=== PATIENT | male | born 1935 | race Caucasian/White ===

== ENCOUNTER 2019-07-12 20:40 | Inpatient (IN) | payer MEDICARE, MEDICAID ==
[~2019-07-12] VITALS: Ht 177.8 cm; Wt 64.0 kg
[~2019-07-12 20:40] MED LIST: ABILIFY10 MG PO; ACETAMINOP650 MG/20. PO; ATIVAN0.5 MG ORAL; CLONIDINE0.1 MG PO; COGENTIN1 MG PO; DEPAKOTE250 MG PO; DSS100 MG PO; DULCOLAX10 MG RC; FERROUS SULFAT325 MG PO; FUROSEMIDE40 MG IM; HALDOL INJECT5 MG/ML IM; LAMICTAL25 MG PO; LYRICA50 MG ORAL; MAALOX SUSPENS355 ML ORAL; MAALOX SUSPENS355 ML PO; MOM30 ML PO; MULTIVITAMINS1 EA11 PO; POTASSIUM CHLO20 ME1 ORAL; RAZADYNE4 MG PO; RESTORIL7.5 MG ORAL; RISPERDAL1 MG PO; RISPERDAL2 MG PO; ROCEPHIN1 GM IM; VITAMIN C500 M1 PO; ZINC SULFATE220 M1 ORAL
--- NOTE | 2019-07-12 20:40 | NUR ---
ED Nurse Note: PT CICI NOBLES FROM [facility] C/O FAILURE TO THRIVE [id number]. PT HAS BEEN EATING BUT WAS LOSING WEIGHTS OF 10 LBS. EMS REPORTS INCREASED COMBATIVENESS. PT IS AAOX2, VSS, NAD. ERMD AT BEDSIDE. WILL CONTINUE TO MONITOR PATIENT.
--- NOTE | 2019-07-12 20:45 | Emergency Room Report ---
History of Present Illness General Chief Complaint: General Complaint Source: Patient, EMS Present Illness HPI The patient is sent by his private physician. Apparently he has had deterioration over the last month. There is been 10 pound weight loss. He has been refusing to eat and also refusing to take medication. The patient denies any pain. He also denies being thirsty. He will not answer questions about being depressed or short of breath. He was last admitted here in 2012. Discharge diagnoses: 1. Bilateral extremity cellulitis. 2. History of congestive heart failure. 3. Diastolic congestive heart failure. 4. Acute delirium. 5. Schizophrenia. 6. Hypertension. 7. Possible dental abscess. Allergies: Coded Allergies: PORK/PORCINE CONTAINING PRODUCTS (Verified Allergy, Mild, 08/03/11) Patient History Limited by: medical condition Past Medical History: see triage record, old chart reviewed Social History Narrative Frederick Roque Reviewed Nursing Documentation: PMH: Agreed; PSxH: Agreed Nursing Documentation-PMH Hx Hypertension: Yes Hx COPD: Yes Hx Diabetes: Yes Hx Cancer: No Hx Neurological Problems: Yes Hx Cerebrovascular Accident: Yes Hx Dementia: Yes Hx Seizures: Yes Hx Concentration Difficulty: Yes Hx Neurologic Surgery: No Hx Brain Shunt: No Review of Systems All Other Systems: limited Physical Exam Vital Signs Date Time Temp Pulse Resp B/P (MAP) Pulse Ox O2 Delivery O2 Flow Rate FiO2 07/12/19 20:33 98.2 19 102/64 (77) Sp02 EP Interpretation: reviewed, normal General Appearance: thin, Chronically Ill Head: normocephalic Eyes: bilateral eye normal inspection, bilateral eye PERRL ENT: moist mucus membranes Neck: full range of motion, supple Respiratory: chest non-tender, lungs clear, normal breath sounds Cardiovascular #1: regular rate, rhythm, no edema Cardiovascular #2: 2+ radial (L) Gastrointestinal: normal inspection, normal bowel sounds, non tender, no mass, non-distended Genitourinary: no CVA tenderness Musculoskeletal: back normal, normal range of motion, no calf tenderness Neurologic: other - eyes closed and slow to respond Psychiatric: depressed affect Skin: no rash, warm/dry Medical Decision Making Diagnostic Impression: Primary Impression: Failure to thrive Qualified Codes: R62.7 - Adult failure to thrive Additional Impression: Dehydration ER Course Patient presents with 1 month of deterioration. Differential includes occult infection, electrolyte imbalance, acute myocardial infarction, depression, dehydration amongst others. Evaluation with EKG, chest x-ray and labs. Treatment with IV hydration. EKG no injury. CXR no infiltrate. Labs with elevated BUN and slightly high K. Minimal improvement with hydration. Admit for further evaluation and treatment. Laboratory Tests Test 07/12/19 21:00 07/12/19 21:05 White Blood Count 7.2 K/UL (4.8-10.8) Red Blood Count 4.51 M/UL (4.70-6.10) L Hemoglobin 13.6 G/DL (14.2-18.0) L Hematocrit 43.3 % (42.0-52.0) Mean Corpuscular Volume 96 FL (80-99) Mean Corpuscular Hemoglobin 30.2 PG (27.0-31.0) Mean Corpuscular Hemoglobin Concent 31.4 G/DL (32.0-36.0) L Red Cell Distribution Width 14.4 % (11.6-14.8) Platelet Count 194 K/UL (150-450) Mean Platelet Volume 6.4 FL (6.5-10.1) L Neutrophils (%) (Auto) 61.0 % (45.0-75.0) Lymphocytes (%) (Auto) 26.5 % (20.0-45.0) Monocytes (%) (Auto) 7.3 % (1.0-10.0) Eosinophils (%) (Auto) 3.7 % (0.0-3.0) H Basophils (%) (Auto) 1.4 % (0.0-2.0) Erythrocyte Sedimentation Rate 18 MM/HR (0-20) Prothrombin Time 10.7 SEC (9.30-11.50) Prothrombin Time INR 1.0 (0.9-1.1) Activated Partial Thromboplast Time 20 SEC (23-33) L Sodium Level 141 MMOL/L (136-145) Potassium Level 5.4 MMOL/L (3.5-5.1) H Chloride Level 107 MMOL/L (98-107) Carbon Dioxide Level 28 MMOL/L (21-32) Anion Gap 6 mmol/L (5-15) Blood Urea Nitrogen 23 mg/dL (7-18) H Creatinine 0.9 MG/DL (0.55-1.30) Estimate Glomerular Filtration Rate mL/min (>60) Glucose Level 106 MG/DL (74-106) Lactic Acid Level 1.00 mmol/L (0.4-2.0) Uric Acid 4.3 MG/DL (2.6-7.2) Calcium Level 8.9 MG/DL (8.5-10.1) Magnesium Level 1.8 MG/DL (1.8-2.4) Total Bilirubin 0.4 MG/DL (0.2-1.0) Aspartate Amino Transferase (AST) 29 U/L (15-37) Alanine Aminotransferase (ALT) 17 U/L (12-78) Alkaline Phosphatase 50 U/L (46-116) Ammonia 11 umol/L (11-32) Total Creatine Kinase 222 U/L (26-308) Troponin I 0.006 ng/mL (0.000-0.056) Total Protein 7.2 G/DL (6.4-8.2) Albumin 3.0 G/DL (3.4-5.0) L Globulin 4.2 g/dL Albumin/Globulin Ratio 0.7 (1.0-2.7) L Lipase 126 U/L (73-393) Thyroid Stimulating Hormone (TSH) 1.776 uiU/mL (0.358-3.740) Urine Color Pale yellow Urine Appearance Clear Urine pH 7 (4.5-8.0) Urine Specific [place] 1.015 (1.005-1.035) Urine Protein Negative (NEGATIVE) Urine Glucose (UA) Negative (NEGATIVE) Urine Ketones Negative (NEGATIVE) Urine Blood Negative (NEGATIVE) Urine Nitrite Negative (NEGATIVE) Urine Bilirubin Negative (NEGATIVE) Urine Urobilinogen Normal MG/DL (0.0-1.0) Urine Leukocyte Esterase Negative (NEGATIVE) Urine Opiates Screen Negative (NEGATIVE) Urine Barbiturates Screen Negative (NEGATIVE) Phencyclidine (PCP) Screen Negative (NEGATIVE) Urine Amphetamines Screen Negative (NEGATIVE) Urine Benzodiazepines Screen Negative (NEGATIVE) Urine Cocaine Screen Negative (NEGATIVE) Urine Marijuana (THC) Screen Negative (NEGATIVE) EKG Diagnostic Results Rate: normal Rhythm: NSR ST Segments: no acute changes - LVH and LASH Rhythm Strip Diag. Results EP Interpretation: yes Rhythm: NSR, no PVC's, no ectopy Chest X-Ray Diagnostic Results Chest X-Ray Diagnostic Results : Chest X-Ray Ordered: Yes # of Views/Limited/Complete: 1 View Indication: Other EP Interpretation: Yes Interpretation: no consolidation, no effusion, no pneumothorax, other - Cardiomegaly Impression: Other Electronically Signed by: Electronically signed by Shaw Anglin MD Last Vital Signs Date Time Temp Pulse Resp B/P (MAP) Pulse Ox O2 Delivery O2 Flow Rate FiO2 07/13/19 09:19 Room Air 07/13/19 09:00 119/69 07/13/19 08:25 97.4 70 20 99 Status: improved Disposition: ADMITTED INPATIENT Condition: Serious Shaw Anglin MD Jul 12, 2019 20:45
--- NOTE | 2019-07-12 21:00 | NUR ---
ED Nurse Note: IV ACCESS ESTABLISHED. BLOOD COLLECTED;S ENT DOWN TO LAB.
--- NOTE | 2019-07-12 21:10 | NUR ---
ED Nurse Note: URINE COLLECTED AND SENT TO LAB.
[2019-07-12 21:17] VITALS: BP 100/54
[2019-07-12] MEDS ORDERED: ACETAMINOPHEN120 MG RECTAL (21:21)
[2019-07-12] MEDS ORDERED: ACETAMINOPHEN325 M1 ORAL (21:21)
[2019-07-12] MEDS ORDERED: MYLANTA MAXIMU355 ML PO (21:21)
[2019-07-12 21:28] LABS: APPEARANCE,URINE CLEAR; BILIRUBIN, URINE NEGATIVE (NEGATIVE); COLOR,URINE PALE YELLOW; GLUCOSE, URINE (UA) NEGATIVE (NEGATIVE); KETONES,URINE NEGATIVE (NEGATIVE); LEUKOCYTE ESTERASE ,URINE NEGATIVE (NEGATIVE); NITRITE,URINE NEGATIVE (NEGATIVE); PH,URINE 7 (4.5-8.0); PROTEIN,URINE NEGATIVE (NEGATIVE); UROBILINOGEN,URINE NORMAL MG/DL (0.0-1.0)
[2019-07-12 21:34] LABS: BASOPHILS % (AUTO) 1.4 % (0.0-2.0); EOSINOPHILS % (AUTO) 3.7 % (0.0-3.0); HEMATOCRIT 43.3 % (42.0-52.0); HEMOGLOBIN 13.6 G/DL (14.2-18.0); LYMPHOCYTES % (AUTO) 26.5 % (20.0-45.0); MEAN CORPUSCULAR VOLUME 96 FL (80-99); MONOCYTES % (AUTO) 7.3 % (1.0-10.0); PLATELET COUNT 194 K/UL (150-450); RED BLOOD COUNT 4.51 M/UL (4.70-6.10); RED CELL DISTRIBUTION WIDTH 14.4 % (11.6-14.8); WHITE BLOOD COUNT 7.2 K/UL (4.8-10.8)
[2019-07-12 21:45] LABS: ANION GAP 6 mmol/L (5-15); BLOOD UREA NITROGEN 23 mg/dL (7-18); CALCIUM 8.9 MG/DL (8.5-10.1); CARBON DIOXIDE 28 MMOL/L (21-32); CHLORIDE 107 MMOL/L (98-107); CREATININE 0.9 MG/DL (0.55-1.30); POTASSIUM 5.4 MMOL/L (3.5-5.1); SODIUM 141 MMOL/L (136-145)
[2019-07-12 21:57] LABS: ALANINE AMINOTRANSFERASE 17 U/L (12-78); ALBUMIN/GLOBULIN RATIO 0.7 (1.0-2.7); ALKALINE PHOSPHATASE 50 U/L (46-116); ASPARTATE AMINO TRANSFERASE 29 U/L (15-37); BILIRUBIN,TOTAL 0.4 MG/DL (0.2-1.0); CREATINE KINASE 222 U/L (26-308)
[2019-07-12] MEDS ORDERED: Haloperidol 5mg/ml Inj IM PRN (22:30)
[2019-07-12] MEDS ORDERED: Potassium Chloride 10 MEQ in D5 1/2NS 1,000 ML IV SCH (22:30)
--- NOTE | 2019-07-12 22:55 | NUR ---
TRANSFER TO FLOOR: Patient transferred to [facility] via gurney accompanied by 1 tech in stable condition as ordered, per dr. Crandall. Report given to Asab RN. Belongings sent with patient.
--- NOTE | 2019-07-12 23:00 | NUR ---
NURSE NOTES: Pt is admitted from ER with Dx of Failure to thrive under Dr. Crandall. Report received from Rey Ulrich RN. Vitas stable on room air. No acute distress noted. Pt has delayed and garbled speech. Pt is confused. Pt able take apple sauce, juice and water by mouth. Physical assessment performed, skin intact. Pt is bedbound unable to ambulate with steady gait. Pt's potassium level is 5.4, Dr. Crandall is called, awaiting call back. Pt oriented to the room. Pt has no belongings except a gil sweater. Fall and seizure precaution in place. Bed alarm on. Bed locked low in position, side rails up and call light within reach. Pt will be monitored.
[2019-07-13] VITALS: BP 122/55
--- NOTE | 2019-07-13 03:54 | NUR ---
NURSE NOTES: Pt is in bed, asleep. NO acute distress noted.
[2019-07-13 04:00] VITALS: BP 118/81
[2019-07-13 05:59] LABS: ANION GAP 4 mmol/L (5-15); BLOOD UREA NITROGEN 16 mg/dL (7-18); CARBON DIOXIDE 30 MMOL/L (21-32); CHLORIDE 109 MMOL/L (98-107); CREATININE 0.9 MG/DL (0.55-1.30); POTASSIUM 4.8 MMOL/L (3.5-5.1); SODIUM 143 MMOL/L (136-145)
[2019-07-13 06:04] LABS: ALANINE AMINOTRANSFERASE 16 U/L (12-78); ALBUMIN 3.2 G/DL (3.4-5.0); ALBUMIN/GLOBULIN RATIO 0.8 (1.0-2.7); ALKALINE PHOSPHATASE 51 U/L (46-116); ASPARTATE AMINO TRANSFERASE 17 U/L (15-37); BILIRUBIN,TOTAL 0.7 MG/DL (0.2-1.0)
[2019-07-13] MEDS: D5 1/2NS 1,000 ML IV SCH ×2 (06:38→20:14)
--- NOTE | 2019-07-13 07:15 | NUR ---
HAND-OFF: Report given to Kathy Myers RN. Informed incoming nurse that pt is High fall risk.
--- NOTE | 2019-07-13 07:20 | NUR ---
- nurse notes received patient in bed sleeping no sign of distress, on going IVF patent and infusing well, on fall precaution, both siderails up for safety, bed in low position, Call light w/n easy reach malathi. rn
[2019-07-13 08:25] VITALS: BP 119/69
[2019-07-13] MEDS: Galantamine 4mg tab ORAL SCH ×2 (08:30→17:44)
[2019-07-13] MEDS: Heparin 5000 units/ml inj SUBQ SCH ×3 (08:32→20:10)
--- NOTE | 2019-07-13 12:00 | NUR ---
nurse notes joann , heparin and clonidine refused by patient, refused v/s at this time too, will continue to monitor patient condition robert servin
--- NOTE | 2019-07-13 12:17 | NUR ---
CASE MANAGEMENT:INITIAL REVIEW 84 YR OLD MALE BIBA FROM [facility] CC;GENERAL COMPLAINT SI;FTT. DEHYDRATION. 98.5 19 16 100/54 98% ON RA K+ 5.4 BUN 23 UA - NEGATIVE IS;IVF NS BOLUS X1 ADMITTED TO MED SURG MED SURG STATUS DCP;TO [facility]
[2019-07-13] MEDS ORDERED: ACETAMINOPHEN325 M1 ORAL (12:52)
[2019-07-13] MEDS ORDERED: LAMICTAL100 MG ORAL (12:53)
--- NOTE | 2019-07-13 13:25 | NUR ---
RD ASSESSMENT & RECOMMENDATIONS SEE CARE ACTIVITY FOR COMPLETE ASSESSMENT DAILY ESTIMATED NEEDS: Needs based on WT loss, underweight 62.7kg 30-35 kcals/kg 1862-0312 total kcals 1-1.5 g protein/kg 63-94 g total protein 25-30ml/kcal mL/kg 9980-2236 total fluid mLs NUTRITION DIAGNOSIS: Increased kcal and pro needs r/t weight loss, FTT as evidenced by pt w/ 10# wt loss, recent poor po intake, pt @83% of ideal body weight. CURRENT DIET: Regular mech soft finely chopped PO DIET RECOMMENDATIONS: Maintain Regular diet, texture per ACADEMIC COUNSELOR ADDITIONAL RECOMMENDATIONS: 1) Consult RD for non oral feeds 2) Add Ensure Enlive w/ meals, TID 3) REC: Weekly calibrated bed scale wts as pt adm w/ wt loss 4) Monitor lytes, maintain D5 for hydration w/ continued poor po 5) Rec ACADEMIC COUNSELOR eval for appropriate texture 6) REC 48 HR KCAL COUNT FOR EVAL OF PO INTAKE
--- NOTE | 2019-07-13 13:43 | Diagnostic Imaging Report ---
Indication: Dyspnea Comparison: 05/23/2013 A single view chest radiograph was obtained. Findings: Abnormal density noted within the lung parenchyma the left lung base silhouetting out part of the left hemidiaphragm. Cardiomegaly is noted. Pulmonary vascularity is likely within normal limits. IMPRESSION: Atelectasis versus pneumonia at the left lung base
--- NOTE | 2019-07-13 15:00 | History and Physical Report ---
DATE OF ADMISSION: 07/12/2019 CHIEF COMPLAINT: Altered mental status, failure to thrive. HISTORY OF PRESENT ILLNESS: The patient is an 84-year-old male. He has a history of severe schizophrenia, DVT, hypertension, and COPD. He was [facility] from a [facility] facility with complaints of failure to thrive, poor p.o. intake, dehydration, and confusion. The patient is a poor historian due to severe mental illness specifically schizophrenia. He is often agitated, combative, verbally abusive, and aggressive. He has not been eating at the detention facility. Workup there has been difficult because of the patient's underlying schizophrenia and psychosis. He was transferred to the emergency room. There, he remained confused, agitated, and aggressive. His white count was normal. His potassium was 5.4. Troponin was 0.006, CK of 222. Thyroid was normal. But in light of the patient's continued weight loss, failure to thrive, and confusion, he is now admitted for further evaluation and care. PAST MEDICAL HISTORY: As above. PAST SURGICAL HISTORY: None. CURRENT MEDICATIONS: Reconciled and reviewed. ALLERGIES: Include pork. FAMILY HISTORY: Noncontributory. SOCIAL HISTORY: Negative for tobacco, ethanol, or drugs. REVIEW OF SYSTEMS: Unobtainable as the patient is confused. PHYSICAL EXAMINATION: VITAL SIGNS: Temperature 98 degrees, pulse 61, respirations 13, and blood pressure 100/54. GENERAL: The patient is a chronically ill-appearing, disheveled male, in no apparent distress. HEART: Regular rate and rhythm. LUNGS: Clear. ABDOMEN: Soft. EXTREMITIES: Without clubbing or cyanosis. There is 1 to 2+ edema noted. LABORATORY DATA: White count 7, hemoglobin 13, and platelets 194,000. Sodium 141, potassium 5.4. Troponin 0.006. ASSESSMENT: This is an elderly male with a history of schizophrenia, chronic obstructive pulmonary disease, hypertension, and DVT, admitted with complaints of worsening confusion, failure to thrive, dehydration, and hyperkalemia. PLAN: 1. IV hydration. 2. Monitor p.o. intake. 3. CT scan of the head. 4. We will try to get urinalysis. 5. Psychiatric consultation will be obtained. 6. Further plan of care will be determined after review of pending tests. Alexis Crandall M.D. DR: JERILYN JOB#: [id number] CC:
[2019-07-13 16:09] VITALS: BP 138/93
--- NOTE | 2019-07-13 16:10 | NUR ---
NURSE NOTES:WOUND CARE NOTES:Pt physically aggressive towards staff,is incontinent and resistive care. Skin Assessment completed with Charge Nurse's asst. as pt kicked and swung at staff. Sacrum noted to have dark discoloration without induration Sacrum,R and L Buttocks. An area of erythema noted to cleft and perianal area. Both heels are dry, firm and blanchable. Moisture Barrier Paste applied to Sacrum and covered with Optifoam drsg. Moisture Barrier Paste applied to scrotum and and cleft of buttocks. Cavilon Skin Barrier applied to each Trochanter and both heels, each area mentioned covered with Optifoam drsg to minimize friction and shearing as pt is restless and easily agitated. Tx.Plan: Apply Moisture Barrier Paste to sacrum and perianal areas. Cover Sacrum with Optifoam drsg. Change every 3 days and prn. Apply Cavilon Skin Barrier to both heels. Cover each heel with Optifoam drsg. Change every 7 days and prn. Reposition at least every 2hours or as tolerated. Off-load heels with pillow.
--- NOTE | 2019-07-13 17:01 | NUR ---
HAND-OFF: Report given to LUIS FAULKNER accordingly. luis servin
--- NOTE | 2019-07-13 17:02 | NUR ---
NURSE NOTES: Patient awake, alert x2, aggressive and combative; on room air, no sing of distress and shortness of breath; no sing of chest pain; IV Left-Hand 22G D51/2NS @75cc; side rails up and padded for seizure percussion; breaks engaged, bed at lowest position, bed alarm on; call light within reach; will keep monitoring.
--- NOTE | 2019-07-13 17:45 | NUR ---
NURSE NOTES: Patient refused Lamotrigine, Galantamine, Clonidine and Benztropine; Rn explained the risks of not taking medications as per order; still patient refused medications; will keep monitoring.
--- NOTE | 2019-07-13 19:13 | NUR ---
HAND-OFF: Report given to LUIS Lima.
--- NOTE | 2019-07-13 19:42 | NUR ---
NURSE NOTES: Patient in bed, awake, unable to make needs known. Respiration is even and unlabored. No s/s of pain or discomfort noted at this time. Skin is warm and dry to touch. Bed in low and locked position. Respiration is even and unlabored. IV site noted. Kept clean and comfortable. Patient is aggressive, non compliant, will re-orient patient Call light is at bedside. Will continue plan of care.
[2019-07-13 20:00] VITALS: BP 129/71
[2019-07-13] MEDS: ARIPiprazole 10mg tab ORAL SCH (20:09)
[2019-07-14] VITALS: BP 134/71
[2019-07-14 04:00] VITALS: BP 139/75
--- NOTE | 2019-07-14 07:20 | NUR ---
HAND-OFF: Report given to LUIS Dickerson.
--- NOTE | 2019-07-14 07:20 | NUR ---
NURSE NOTES: Report received from Peña SMITH. Patient is awake and alert x 1. Patient is slightly agitated, loudly asking staff to take his breakfast tray out of the room. Patient safe in bed with side rails padded, bed in lowest position, locked and alarmed. Patient not trying to get out of bed. Patient became less agitated after removing the try and became calm and relaxed. 22 nilesh in left with fluids running per MD orders. Will continue to follow plan of care.
--- NOTE | 2019-07-14 07:44 | General Progress Note ---
Assessment/Plan Problem List: (1) Cellulitis (2) Schizophrenia (3) Failure to thrive SNOMED: 40262835 (4) Dehydration ICD Codes: E86.0 - Dehydration SNOMED: 36125232 Status: stable Assessment/Plan: psych eval iv abx wound care Subjective ROS Limited/Unobtainable: No Constitutional: Reports: malaise, weakness HEENT: Reports: no symptoms Cardiovascular: Reports: no symptoms Respiratory: Reports: no symptoms Gastrointestinal/Abdominal: Reports: no symptoms Genitourinary: Reports: no symptoms Neurologic/Psychiatric: Reports: no symptoms Endocrine: Reports: no symptoms Hematologic/Lymphatic: Reports: no symptoms Allergies: Coded Allergies: PORK/PORCINE CONTAINING PRODUCTS (Verified Allergy, Mild, 08/03/11) All Systems: reviewed and negative except above Subjective remains confused and agitated. aggressive and combative. wound on buttucks and legs Objective Last 24 Hour Vital Signs Date Time Temp Pulse Resp B/P (MAP) Pulse Ox O2 Delivery O2 Flow Rate FiO2 07/14/19 04:00 97.6 55 16 139/75 (96) 98 07/14/19 00:00 98.2 51 18 134/71 (92) 98 07/13/19 21:00 Room Air 07/13/19 20:00 97.9 56 14 129/71 (90) 96 07/13/19 16:09 97.8 75 20 138/93 (108) 99 07/13/19 13:00 119/69 07/13/19 09:19 Room Air 07/13/19 09:00 119/69 07/13/19 08:25 97.4 70 20 119/69 (86) 99 Intake and Output 07/13/19 07/14/19 19:00 07:00 Intake Total 900 ml 750 ml Balance 900 ml 750 ml Intake IV Total 900 ml 750 ml # Voids 4 # Bowel Movements 1 Height (Feet): 5 Height (Inches): 10.00 Weight (Pounds): 138 General Appearance: WD/WN, agitated, combative Neck: supple Cardiovascular: regular rhythm Respiratory/Chest: lungs clear Abdomen: soft Edema: mild edema Neurologic: disoriented Alexis Crandall MD Jul 14, 2019 07:44
[2019-07-14 08:00] VITALS: BP 139/74
--- NOTE | 2019-07-14 08:48 | NUR ---
NURSE NOTES: Patient agitated and being aggressive towards staff. Patient kicking and staff and yelling "leave me alone", "get away from me", and "no I will not take my medicine". Unable to reorient and calm patient. Patiently only alert and oriented x 1. Unable to give morning medications. Doctor Crandall contacted. Doctor Ruvalcaba made aware. Doctor Salo is to come and see patient per Doctor Raz will continue to follow plan of care.
[2019-07-14] MEDS: Galantamine 4mg tab ORAL SCH ×2 (09:00→17:13)
[2019-07-14] MEDS: Heparin 5000 units/ml inj SUBQ SCH ×2 (09:00→20:32)
[2019-07-14] MEDS: D5 1/2NS 1,000 ML IV SCH ×2 (09:11→23:10)
[2019-07-14] MEDS: cefTRIAXone 1 GM in D5W 55 ML IVPB SCH (09:11)
--- NOTE | 2019-07-14 10:18 | NUR ---
CASE MANAGEMENT:REVIEW SI;CELLULITIS. FAILURE TO THRIVE 97.4 51 14 139/75 96% ON RA LABS - NONE IS;ROCEPHIN IV Q24 HRS DEPAKOTE PO Q12 HRS HEPARIN SUBQ Q12 HRS MED SURG STATUS PLAN;WOUND CARE PSYCH EVAL DCP;TO [facility]Y ANTO[facility]
[2019-07-14] MEDS ORDERED: D5 1/2NS 1000ml IV ONE ×2 (10:48→10:55)
--- NOTE | 2019-07-14 11:54 | NUR ---
NURSE NOTES: Lunch tray brought into room. Offered to patient. Patient began kicking and shouting to take the food. Patient did not eat lunch.
[2019-07-14 12:00] VITALS: BP 129/80
[2019-07-14 16:00] VITALS: BP 128/78
--- NOTE | 2019-07-14 17:30 | NUR ---
NURSE NOTES: Patient refusing to eat dinner. Yelling for staff to take it away. Charge nurse Shaw attempted as well, same result. Unable to reorient patient. Patient unable to show understanding on the importance of eating after education. Patient only alert and oriented x 1.
--- NOTE | 2019-07-14 17:46 | NUR ---
NURSE NOTES: Patient continuing to refuse medications and medications. Stating "get away from me or ill kill you". Doctor Raz and Salo made aware. Will give 5 mg haldol IM per Doctor Salo. Clonidine changed to a patch per Doctor Crandall.
--- NOTE | 2019-07-14 19:23 | NUR ---
HAND-OFF: Report given to Adriano SMITH.
--- NOTE | 2019-07-14 19:35 | NUR ---
NURSE NOTES: Pt. received from LUIS Rust. Pt. AAOx1 on room air, no complaints of pain and no indications of respiratory distress at this time. IV site left hand 22g, asymptomatic, intact, and patent, running D5 1/2 NS at 75cc/hr. Bed is low and locked, side rails x2 up and padded, bed alarm active, and call light is in reach. Will continue to monitor.
[2019-07-14 20:00] VITALS: BP 152/77
[2019-07-14] MEDS: ARIPiprazole 10mg tab ORAL SCH (20:31)
[2019-07-14] MEDS: OLANZapine 10mg tab ORAL SCH (20:32)
--- NOTE | 2019-07-14 20:32 | NUR ---
NURSE NOTES: Pt. refused 2100 medications. Discussed risks vs. benefits but pt. AAOx1, pt. states reason for refusing "they are trying to poison me." Charge nurse aware, will continue to monitor.
[2019-07-15] VITALS: BP 120/77
--- NOTE | 2019-07-15 01:45 | Consultation ---
DATE OF CONSULTATION: 07/14/2019 CONSULTING PHYSICIAN: Raphael Leong M.D. HISTORY OF PRESENT ILLNESS: The patient is an 84-year-old male with a history of multiple medical issues including COPD, hypertension, DVT, schizophrenia, and cognitive impairment, who has been admitted to the hospital for medical stabilization. The patient is admitted for failure to thrive and more confusion. During evaluation, he has been easily agitated. He has been refusing medications and has cognitive impairment. The patient in addition has not been eating adequately and losing weight with abnormal labs. PAST PSYCHIATRIC HISTORY: Schizophrenia. Several psychiatric hospitalizations. The patient takes psychotropic medication outside of the hospital including Lamictal. ALLERGIES: No known drug allergies. SUBSTANCE ABUSE HISTORY: No known history of illicit drug use or alcohol. MENTAL STATUS EXAMINATION: The patient is alert and oriented times self and place. Mood is agitated. Affect is flat. Thought process is disorganized. Thought content, no suicidal or homicidal ideation. Cognition is impaired. Insight and judgment are impaired. ASSESSMENT: [place] I Schizophrenia. Cognitive impairment. [place] II Deferred. [place] III None. [place] IV Low. PLAN: 1. We will stop the risperidone and start the patient on Zyprexa 10 mg p.o. nightly to also increase appetite in addition treating his psychotic symptoms. 2. Haldol p.r.n. 3. Continue to follow and readjust the medications. Raphael Leong M.D. DR: SAY JOB#: [id number] CC:
[2019-07-15 04:00] VITALS: BP 118/73
--- NOTE | 2019-07-15 07:10 | NUR ---
HAND-OFF: Report given to LUIS Rust.
--- NOTE | 2019-07-15 07:13 | NUR ---
NURSE NOTES: Report received from Adriano SMITH. Patient is awake and alert x 1, currently anxious and agitated. Patient noted to have 22 nilesh IV in left hand with IV fluids running per MD orders. Was told by previous RN Adriano that patient refused all oral medications overnight. Was informed by Adriano SMITH that doctor Raz is aware. Bed locked, alarmed, and in lowest position. Will continue to follow plan of care.
--- NOTE | 2019-07-15 07:56 | General Progress Note ---
Assessment/Plan Problem List: (1) Cellulitis (2) Schizophrenia (3) Failure to thrive SNOMED: [id number] Qualifiers: Qualified Codes: R62.7 - Adult failure to thrive (4) Dehydration ICD Codes: E86.0 - Dehydration SNOMED: 43459809 Status: stable Assessment/Plan: psych eval will d/w psych IM/IV psych meds. refusing po meds ivf if agrees encourage po iv abx wound care Subjective ROS Limited/Unobtainable: No Constitutional: Reports: malaise, weakness HEENT: Reports: no symptoms Cardiovascular: Reports: no symptoms Respiratory: Reports: no symptoms Gastrointestinal/Abdominal: Reports: no symptoms Genitourinary: Reports: no symptoms Neurologic/Psychiatric: Reports: anxiety, emotional problems Endocrine: Reports: no symptoms Hematologic/Lymphatic: Reports: no symptoms Allergies: Coded Allergies: PORK/PORCINE CONTAINING PRODUCTS (Verified Allergy, Mild, 08/03/11) All Systems: reviewed and negative except above Subjective remains confused and agitated. aggressive and combative. refusing all meds and po Objective Last 24 Hour Vital Signs Date Time Temp Pulse Resp B/P (MAP) Pulse Ox O2 Delivery O2 Flow Rate FiO2 07/15/19 04:00 97.1 64 20 118/73 (88) 99 07/15/19 00:00 97.7 60 18 120/77 (91) 98 07/14/19 21:00 Room Air 07/14/19 20:30 152/77 07/14/19 20:00 97.8 68 18 152/77 (102) 96 07/14/19 16:00 97.8 66 18 128/78 (95) 98 07/14/19 12:00 98.3 57 18 129/80 (96) 98 07/14/19 09:00 Room Air 07/14/19 08:00 97.4 55 18 139/74 (95) 97 Intake and Output 07/14/19 07/15/19 19:00 07:00 Intake Total 805 ml 825 ml Balance 805 ml 825 ml Intake IV Total 805 ml 825 ml # Voids 2 3 Height (Feet): 5 Height (Inches): 10.00 Weight (Pounds): 138 General Appearance: WD/WN, confused Neck: supple Cardiovascular: regular rhythm Respiratory/Chest: lungs clear Abdomen: normal bowel sounds, non tender, soft, no organomegaly Edema: mild edema Neurologic: disoriented Alexis Crandall MD Jul 15, 2019 07:56
[2019-07-15 08:00] VITALS: BP 132/77
[2019-07-15] MEDS: Galantamine 4mg tab ORAL SCH ×2 (08:19→17:34)
[2019-07-15] MEDS: cefTRIAXone 1 GM in D5W 55 ML IVPB SCH (08:24)
[2019-07-15] MEDS: Heparin 5000 units/ml inj SUBQ SCH ×2 (08:25→21:00)
--- NOTE | 2019-07-15 08:30 | NUR ---
NURSE NOTES: Attempted to feed patient. Patient shouted that the food was poison. Patient also did not take oral medications this morning. Kept on stating that the Barrera RN was trying to poison him. Charge nurse made aware.
[2019-07-15] MEDS: D5 1/2NS 1,000 ML IV SCH (11:16)
[2019-07-15 12:00] VITALS: BP 131/71
--- NOTE | 2019-07-15 12:00 | NUR ---
NURSE NOTES: Both nurse and nursing unit manager attempted to offer patient food. Patient began to shout that he did not want food. unable to reorient patient. Patient continues to be alert and oriented x 1 and refuse food.
[2019-07-15 16:00] VITALS: BP 135/73
--- NOTE | 2019-07-15 17:32 | NUR ---
NURSE NOTES: Attempt to orient patient to person, time, and place. Patient only alert and oriented x 1. patient unable to show understanding of medication education. stating that it is poison. Patient refusing to eat dinner.
--- NOTE | 2019-07-15 19:18 | NUR ---
HAND-OFF: Report given to Michael SMITH.
--- NOTE | 2019-07-15 19:20 | NUR ---
NURSE NOTES: Received patient in bed. Patient is on room air, respirations unlabored. Patient denies pain at this time. Alert x1. Side rails padded for seizure precautions. IV in the Left hand running D5 1/2 NS at 75 mL/hr, no redness or swelling noted.
[2019-07-15 20:00] VITALS: BP 111/63
[2019-07-15] MEDS: OLANZapine 10mg tab ORAL SCH (21:00)
[2019-07-15] MEDS: ARIPiprazole 10mg tab ORAL SCH (21:00)
--- NOTE | 2019-07-15 21:05 | NUR ---
NURSE NOTES: Patient is refusing PO medications and SQ injection. States that we are going to kill him. Patient becomes aggressive if asked more than once and yells "get out."
--- NOTE | 2019-07-15 21:15 | NUR ---
NURSE NOTES: Re-attempted to give 2100 medications, patient states "if you touch me I will kill you."
[2019-07-16] VITALS: BP 121/82
[2019-07-16] MEDS: D5 1/2NS 1,000 ML IV SCH ×2 (00:54→14:13)
[2019-07-16 04:00] VITALS: BP 139/80
--- NOTE | 2019-07-16 07:07 | NUR ---
HAND-OFF: Report given to Barrera SMITH.
--- NOTE | 2019-07-16 07:16 | NUR ---
NURSE NOTES: Report received from Michael SMITH. Patient is currently awake and alert x 1. Patient became agitated when breakfast was brought into the room. Yelling that it was poison. Would not let overnight nurse Michael give him food. Would now allow Barrera SMITH to give him food. Unable to reorient patient. Patient is unable to reoriented to person time and place. 22 nilesh IV noted in left hand with IV fluids running per MD orders. Patient is continuing to refuse foods and medications. MD aware. Bed locked, alarmed, and in lowest position. Will continue to follow plan of care.
--- NOTE | 2019-07-16 07:30 | NUR ---
NURSE NOTES: Doctor Crandall updated on status of patient. Barrera SMITH made Doctor Crandall aware that patient is still refusing to eat, refusing to take medications, and becoming agitated when staff tries to offer food or medications. Barrera SMITH informed Doctor Crandall that even with haldol patient's behavior did not change. Was informed by Doctor Crandall that he will speak with Doctor Leong.
[2019-07-16 08:00] VITALS: BP 135/73
[2019-07-16] MEDS: Galantamine 4mg tab ORAL SCH ×2 (08:01→17:02)
[2019-07-16] MEDS: cefTRIAXone 1 GM in D5W 55 ML IVPB SCH (08:05)
[2019-07-16] MEDS: Heparin 5000 units/ml inj SUBQ SCH ×2 (08:06→20:39)
[2019-07-16 12:00] VITALS: BP 125/66
--- NOTE | 2019-07-16 12:00 | NUR ---
NURSE NOTES: Patient refused to eat lunch, stating that he does not know that it is not poison. Attempted to feed patient pudding and patient swatted pudding away.
--- NOTE | 2019-07-16 13:54 | General Progress Note ---
Assessment/Plan Problem List: (1) Cellulitis (2) Schizophrenia (3) Failure to thrive SNOMED: [id number] Qualifiers: Qualified Codes: R62.7 - Adult failure to thrive (4) Dehydration ICD Codes: E86.0 - Dehydration SNOMED: [id number] Status: stable Assessment/Plan: psych eval appreciated will d/w psych IM/IV psych meds. refusing po meds ivf if agrees encourage po iv abx wound care Subjective ROS Limited/Unobtainable: No Constitutional: Reports: malaise, weakness HEENT: Reports: no symptoms Cardiovascular: Reports: no symptoms Respiratory: Reports: no symptoms Gastrointestinal/Abdominal: Reports: poor appetite, poor fluid intake Genitourinary: Reports: no symptoms Neurologic/Psychiatric: Reports: anxiety, emotional problems Endocrine: Reports: no symptoms Hematologic/Lymphatic: Reports: no symptoms Allergies: Coded Allergies: PORK/PORCINE CONTAINING PRODUCTS (Verified Allergy, Mild, 08/03/11) All Systems: reviewed and negative except above Subjective remains confused and agitated. aggressive and combative. refusing all meds and po on ivf. Objective Last 24 Hour Vital Signs Date Time Temp Pulse Resp B/P (MAP) Pulse Ox O2 Delivery O2 Flow Rate FiO2 07/16/19 12:00 98.2 55 17 125/66 (85) 98 07/16/19 09:00 Room Air 07/16/19 08:00 97.0 57 17 135/73 (93) 96 07/16/19 04:00 97.2 58 17 139/80 (99) 100 07/16/19 00:00 97.8 60 17 121/82 (95) 98 07/15/19 21:00 Room Air 07/15/19 20:00 97.3 51 18 111/63 (79) 98 07/15/19 16:00 97.6 68 18 135/73 (93) 98 Intake and Output 07/15/19 07/16/19 19:00 07:00 Intake Total 505 ml 825 ml Balance 505 ml 825 ml Intake IV Total 505 ml 825 ml # Voids 5 2 Height (Feet): 5 Height (Inches): 10.00 Weight (Pounds): 138 Objective General Appearance: WD/WN, confused Neck: supple Cardiovascular: regular rhythm Respiratory/Chest: lungs clear Abdomen: normal bowel sounds, non tender, soft, no organomegaly Edema: mild edema Neurologic: disoriented Alexis Crandall MD Jul 16, 2019 13:54
[2019-07-16] MEDS ORDERED: D5 1/2NS 1000ml IV ONE (14:48)
[2019-07-16 16:00] VITALS: BP 128/71
--- NOTE | 2019-07-16 17:01 | NUR ---
NURSE NOTES: Attempted to sit patient up in bed for dinner. Put patient in fowlers position and placed table with dinner tray in front of patient. Patient began yelling he did not want it and pushed table away. Unable to reorient patient. Patient only awake and alert x 1.
--- NOTE | 2019-07-16 19:06 | NUR ---
HAND-OFF: Report given to Michael SMITH.
--- NOTE | 2019-07-16 19:11 | NUR ---
NURSE NOTES: Received patient in bed. Alert x2. On room air, respirations unlabored. Patient denies pain at this time. Patient laying in semi-Fowlers. 1/2 side rails up, side rails padded. IV in the left hand running D5 1/2 NS at 75 mL/hr.
[2019-07-16 20:00] VITALS: BP 137/74
[2019-07-16] MEDS: ARIPiprazole 10mg tab ORAL SCH (20:38)
[2019-07-16] MEDS: OLANZapine 10mg tab ORAL SCH (20:39)
[2019-07-17] VITALS: BP 117/71
[2019-07-17] MEDS: D5 1/2NS 1,000 ML IV SCH ×2 (03:59→17:10)
[2019-07-17 04:00] VITALS: BP 138/72
--- NOTE | 2019-07-17 07:28 | NUR ---
HAND-OFF: Report given to Carter SMITH.
--- NOTE | 2019-07-17 07:43 | NUR ---
NURSE NOTES: Received pt in bed, awake and confused. RA. IV on RAC 22g noted, running D5 1/2 NS @ 75 ml/hr. Side rails padded for seizure precaution. Bed in the lowest, locked, and alarm on. call light within reach. Will continue to monitor
[2019-07-17 08:00] VITALS: BP 147/83
--- NOTE | 2019-07-17 08:58 | General Progress Note ---
Assessment/Plan Problem List: (1) Cellulitis (2) Schizophrenia (3) Failure to thrive SNOMED: [id number] Qualifiers: Qualified Codes: R62.7 - Adult failure to thrive (4) Dehydration ICD Codes: E86.0 - Dehydration SNOMED: [id number] Status: stable Assessment/Plan: psych eval appreciated will d/w psych IM/IV psych meds. refusing po meds ivf if agrees encourage po iv abx wound care Subjective ROS Limited/Unobtainable: No Constitutional: Reports: malaise, weakness HEENT: Reports: no symptoms Cardiovascular: Reports: no symptoms Respiratory: Reports: no symptoms Gastrointestinal/Abdominal: Reports: poor appetite, poor fluid intake Genitourinary: Reports: no symptoms Neurologic/Psychiatric: Reports: no symptoms Endocrine: Reports: no symptoms Hematologic/Lymphatic: Reports: no symptoms Allergies: Coded Allergies: PORK/PORCINE CONTAINING PRODUCTS (Verified Allergy, Mild, 08/03/11) All Systems: reviewed and negative except above Subjective remains confused and agitated. aggressive and combative. refusing all meds and po on ivf. per staff minimal po intake Objective Last 24 Hour Vital Signs Date Time Temp Pulse Resp B/P (MAP) Pulse Ox O2 Delivery O2 Flow Rate FiO2 07/17/19 08:00 98.3 88 18 147/83 (104) 96 07/17/19 04:00 98.2 63 18 138/72 (94) 98 07/17/19 00:00 98.4 53 17 117/71 (86) 98 07/16/19 21:00 Room Air 07/16/19 20:00 98.8 65 18 137/74 (95) 98 07/16/19 16:00 98.0 67 19 128/71 (90) 98 07/16/19 12:00 98.2 55 17 125/66 (85) 98 07/16/19 09:00 Room Air Intake and Output 07/16/19 07/17/19 19:00 07:00 Intake Total 505 ml 975 ml Balance 505 ml 975 ml Intake Oral 300 ml IV Total 505 ml 675 ml # Voids 4 2 Height (Feet): 5 Height (Inches): 10.00 Weight (Pounds): 138 Objective General Appearance: WD/WN, confused Neck: supple Cardiovascular: regular rhythm Respiratory/Chest: lungs clear Abdomen: normal bowel sounds, non tender, soft, no organomegaly Edema: mild edema Neurologic: disoriented Alexis Crandall MD Jul 17, 2019 08:58
[2019-07-17] MEDS: Galantamine 4mg tab ORAL SCH ×3 (09:00→17:57)
[2019-07-17] MEDS: cefTRIAXone 1 GM in D5W 55 ML IVPB SCH (09:38)
[2019-07-17] MEDS: Heparin 5000 units/ml inj SUBQ SCH ×3 (09:40→21:24)
--- NOTE | 2019-07-17 11:18 | NUR ---
RD ASSESSMENT & RECOMMENDATIONS SEE CARE ACTIVITY FOR COMPLETE ASSESSMENT DAILY ESTIMATED NEEDS: Needs based on WT loss, underweight 62.7kg 30-35 kcals/kg 0129-5094 total kcals 1-1.5 g protein/kg 63-94 g total protein 25-30ml/kcal mL/kg 6071-3271 total fluid mLs NUTRITION DIAGNOSIS: Increased kcal and pro needs r/t weight loss, FTT as evidenced by pt w/ 10# wt loss, refusing all po intake, pt @83% of ideal body weight. CURRENT DIET: Regular mech soft finely chopped PO DIET RECOMMENDATIONS: Maintain Regular diet, texture per [employer] ADDITIONAL RECOMMENDATIONS: 1) Consult RD for non oral feeds 2) Add Ensure Enlive w/ meals, TID 3) REC: Weekly calibrated bed scale wts as pt adm w/ wt loss 4) Monitor lytes, maintain D5 for hydration w/ continued poor po 5) Rec [employer] eval for appropriate texture 6) REC 48 HR KCAL COUNT FOR EVAL OF PO INTAKE 7) Updated labs as able
--- NOTE | 2019-07-17 11:30 | NUR ---
NURSE NOTES: Patient is agitated and refused to take all PO medication and vital sign
--- NOTE | 2019-07-17 12:11 | NUR ---
NURSE NOTES:WOUND CARE FOLLOW-UP NOTES: Pt consented to have staff assess skin but had sporadic outbursts of being verbally abusive and threatening to hit and kill staff. Pt allowed staff to provide bed bath and change soiled bed-linens but declined to have moisture Barrier paste or Optifoam drsgs placed on skin as prevention against friction and skin breakdown. No evidence of Skin breakdown noted.Pt moves freely in bed but is at risks for skin breakdown secondary to pt can be restless and agitated in bed ,is incontinent and appetite is poor.Will continue to monitor skin integrity.
--- NOTE | 2019-07-17 14:58 | NUR ---
CASE MANAGEMENT:REVIEW SI;CELLULITIS. FTT. 98.8 53 18 149/83 96% ON RA LABS - NONE IS;IVF D5W @ 75 ML/HR LAMOTRIGINE PO BID DEPAKOTE PO Q12 HRS ROCEPHIN IV Q24 HRS MED SURG STATUS DCP; FROM JUDY ANTO[facility]
[2019-07-17 16:00] VITALS: BP 106/67
--- NOTE | 2019-07-17 19:16 | NUR ---
HAND-OFF: Report given to LUIS Garcia.
--- NOTE | 2019-07-17 19:30 | NUR ---
NURSE NOTES: RECEIVED PATIENT FROM LUIS HARRIS. PATIENT IS AWAKE, AAOX1, CONFUSED. PATIENT IS ON ROOM AIR, NO ACUTE DISTRESS NOTED. IV ON RIGHT HAND INTACT AND PATENT. PATIENT IS A HIGH FALL RISK DUE TO CONFUSION. FALL PRECAUTIONS IMPLEMENTED. YELLOW GOWN, YELLOW SOCKS AND ARM BANDS IN PLACE. BED IS LOCKED AND LOW, BED ALARMS ACTIVE, ON ZONE 2, SIDE RAILS UP X2 AND PADDED FOR SEIZURE PRECAUTION. COMMUNICATED WITH STAFF FOR FREQUENT ROUNDING. WILL CONTINUE TO MONITOR PATIENT CLOSELY.
[2019-07-17 20:00] VITALS: BP 148/74
[2019-07-17] MEDS: ARIPiprazole 10mg tab ORAL SCH ×2 (21:00→21:13)
[2019-07-17] MEDS: OLANZapine 10mg tab ORAL SCH ×2 (21:00→21:20)
--- NOTE | 2019-07-17 21:30 | NUR ---
NURSE NOTES: PATIENT REFUSED ALL MEDICATIONS. PATIENT STATED THAT "IT'S POISON, I WON'T TAKE IT".
[2019-07-18] MEDS: D5 1/2NS 1,000 ML IV SCH ×2 (06:40→23:39)
--- NOTE | 2019-07-18 07:42 | NUR ---
NURSE NOTES: Patient awake, alert x1, confused; on room air, no sing of distress and shortness of breath; no sing of chest pain; IV Right AC 20G D51/2NS 75cc running; side rails up x2, breaks engaged, bed at lowest position; call light within reach; will keep monitoring.
--- NOTE | 2019-07-18 07:42 | NUR ---
HAND-OFF: Report given to LUIS Chen.
[2019-07-18 08:00] VITALS: BP 147/79
[2019-07-18] MEDS: Galantamine 4mg tab ORAL SCH ×2 (08:57→17:09)
[2019-07-18] MEDS: cefTRIAXone 1 GM in D5W 55 ML IVPB SCH (08:57)
[2019-07-18] MEDS: Heparin 5000 units/ml inj SUBQ SCH ×2 (09:00→21:00)
--- NOTE | 2019-07-18 10:34 | NUR ---
CASE MANAGEMENT:NOTE COMMUNICATION WITH DR. STONE IN RE TO PLAN OF CARE PER DR STONE, FOLLOW UP WITH DR OJEDA IN RE TO INPATIENT PSYCH
[2019-07-18 12:00] VITALS: BP 150/84
[2019-07-18] MEDS ORDERED: Haloperidol 5mg/ml Inj IM SCH (12:35)
[2019-07-18 16:00] VITALS: BP 148/76
--- NOTE | 2019-07-18 19:00 | Progress Note ---
DATE: 07/18/2019 SUBJECTIVE: The patient is easily agitated, refusing the medication. The patient is not cooperative and not taking medication. The patient is constantly yelling and kicking. MENTAL STATUS EXAMINATION: The patient is alert and oriented times self, place, and situation. Mood is anxious and agitated. Affect is flat. Thought process is disorganized. Thought content, no suicidal or homicidal ideation. Cognition is impaired. Insight and judgment is impaired. ASSESSMENT: Schizophrenia. PLAN: 1. We will start the patient on Depakote 500 twice a day. 2. Haldol IM. 3. The patient lacks capacity to refuse medication or any procedure. 4. The patient would benefit from inpatient psychiatric care. 5. Communicated that to the medical case worker. Raphael Leong M.D. DR: Onesimo JOB#: [id number] CC: ABHILASH
--- NOTE | 2019-07-18 19:11 | General Progress Note ---
Assessment/Plan Problem List: (1) Cellulitis (2) Schizophrenia (3) Failure to thrive SNOMED: [id number] Qualifiers: Qualified Codes: R62.7 - Adult failure to thrive (4) Dehydration ICD Codes: E86.0 - Dehydration SNOMED: 16246029 Status: stable Assessment/Plan: psych eval appreciated will d/w psych IM/IV psych meds. refusing po meds ivf if agrees encourage po iv abx wound care transfer to psych inpt Subjective ROS Limited/Unobtainable: Yes Constitutional: Reports: malaise, weakness HEENT: Reports: no symptoms Cardiovascular: Reports: no symptoms Respiratory: Reports: no symptoms Gastrointestinal/Abdominal: Reports: no symptoms Genitourinary: Reports: no symptoms Neurologic/Psychiatric: Reports: anxiety, emotional problems Endocrine: Reports: no symptoms Hematologic/Lymphatic: Reports: anemia Allergies: Coded Allergies: PORK/PORCINE CONTAINING PRODUCTS (Verified Allergy, Mild, 08/03/11) All Systems: reviewed and negative except above Subjective remains confused and agitated. aggressive and combative. refusing all meds and po agrees ivf. per staff minimal po intake- mostly refusing all po Objective Last 24 Hour Vital Signs Date Time Temp Pulse Resp B/P (MAP) Pulse Ox O2 Delivery O2 Flow Rate FiO2 07/18/19 16:00 97.9 66 20 148/76 (100) 97 07/18/19 12:00 97.7 63 20 150/84 (106) 99 07/18/19 09:00 Room Air 07/18/19 08:00 97.9 60 20 147/79 (101) 99 07/17/19 21:00 Room Air 07/17/19 20:00 98.0 73 18 148/74 (98) 96 Intake and Output 07/17/19 07/18/19 19:00 07:00 Intake Total 675 ml 345 ml Balance 675 ml 345 ml Intake Oral 600 ml 120 ml IV Total 75 ml 225 ml # Voids 3 2 Height (Feet): 5 Height (Inches): 10.00 Weight (Pounds): 138 Objective General Appearance: WD/WN, confused Neck: supple Cardiovascular: regular rhythm Respiratory/Chest: lungs clear Abdomen: normal bowel sounds, non tender, soft, no organomegaly Edema: mild edema Neurologic: disoriented Alexis Crandall MD Jul 18, 2019 19:11
--- NOTE | 2019-07-18 19:21 | NUR ---
HAND-OFF: Report given to LUIS Marin.
--- NOTE | 2019-07-18 19:30 | NUR ---
NURSE NOTES: RECEIVED PATIENT FROM LUIS FAULKNER. PATIENT IS AWAKE, AAOX1, CONFUSED. PATIENT IS ON ROOM AIR, NO ACUTE DISTRESS NOTED. IV ON RIGHT HAND INTACT AND PATENT. PATIENT IS A HIGH FALL RISK DUE TO CONFUSION. FALL PRECAUTIONS IMPLEMENTED. YELLOW GOWN, YELLOW SOCKS AND ARM BANDS IN PLACE. BED IS LOCKED AND LOW, BED ALARMS ACTIVE, ON ZONE 2, SIDE RAILS UP X2 AND PADDED FOR SEIZURE PRECAUTION. COMMUNICATED WITH STAFF FOR FREQUENT ROUNDING. WILL CONTINUE TO MONITOR PATIENT CLOSELY.
[2019-07-18 20:00] VITALS: BP 109/63
[2019-07-18] MEDS: OLANZapine 10mg tab ORAL SCH (21:00)
[2019-07-18] MEDS: ARIPiprazole 10mg tab ORAL SCH (21:00)
[2019-07-19] VITALS: BP 113/66
[2019-07-19 04:00] VITALS: BP 120/68
--- NOTE | 2019-07-19 05:52 | General Progress Note ---
Assessment/Plan Problem List: (1) Cellulitis (2) Schizophrenia (3) Failure to thrive SNOMED: [id number] Qualifiers: Qualified Codes: R62.7 - Adult failure to thrive (4) Dehydration ICD Codes: E86.0 - Dehydration SNOMED: 17359499 Status: stable Assessment/Plan: psych eval appreciated will d/w psych IM/IV psych meds. refusing po meds ivf if agrees encourage po iv abx wound care transfer to psych inpt Subjective ROS Limited/Unobtainable: No Constitutional: Reports: malaise, weakness HEENT: Reports: no symptoms Cardiovascular: Reports: no symptoms Respiratory: Reports: no symptoms Gastrointestinal/Abdominal: Reports: poor appetite, poor fluid intake Genitourinary: Reports: no symptoms Neurologic/Psychiatric: Reports: anxiety, emotional problems Endocrine: Reports: no symptoms Hematologic/Lymphatic: Reports: no symptoms Allergies: Coded Allergies: PORK/PORCINE CONTAINING PRODUCTS (Verified Allergy, Mild, 08/03/11) All Systems: reviewed and negative except above Subjective remains confused and agitated. aggressive and combative. refusing all meds and po agrees ivf. received single dose of haldol. slept most of the day but still refused oral meds and food Objective Last 24 Hour Vital Signs Date Time Temp Pulse Resp B/P (MAP) Pulse Ox O2 Delivery O2 Flow Rate FiO2 07/19/19 04:00 97.2 100 18 120/68 (85) 96 07/19/19 00:00 96.9 62 18 113/66 (82) 98 07/18/19 21:00 Room Air 07/18/19 20:00 97.6 57 20 109/63 (78) 98 07/18/19 16:00 97.9 66 20 148/76 (100) 97 07/18/19 12:00 97.7 63 20 150/84 (106) 99 07/18/19 09:00 Room Air 07/18/19 08:00 97.9 60 20 147/79 (101) 99 Intake and Output 07/18/19 07/19/19 19:00 07:00 Intake Total 1415 ml 600 ml Balance 1415 ml 600 ml Intake Oral 480 ml IV Total 935 ml 600 ml # Voids 3 Height (Feet): 5 Height (Inches): 10.00 Weight (Pounds): 138 Objective General Appearance: WD/WN, confused Neck: supple Cardiovascular: regular rhythm Respiratory/Chest: lungs clear Abdomen: normal bowel sounds, non tender, soft, no organomegaly Edema: mild edema Neurologic: disoriented Alexis Crandall MD Jul 19, 2019 05:52
--- NOTE | 2019-07-19 07:20 | NUR ---
NURSE NOTES: Patient asleep, on room air, no sing of distress and shortness of breath; no sing of chest pain; IV Right AC20G D51/2NS 75cc; side rails up x2, padded for seizure percussion, breaks engaged, bed at lowest position, bed alarm on; call light within reach; will keep monitoring.
--- NOTE | 2019-07-19 07:32 | NUR ---
HAND-OFF: Report given to LUIS Chen.
[2019-07-19 08:00] VITALS: BP 115/65
[2019-07-19] MEDS: cefTRIAXone 1 GM in D5W 55 ML IVPB SCH (08:56)
[2019-07-19] MEDS: D5 1/2NS 1,000 ML IV SCH ×2 (08:58→22:36)
[2019-07-19] MEDS: Heparin 5000 units/ml inj SUBQ SCH ×2 (09:00→22:00)
[2019-07-19] MEDS: Galantamine 4mg tab ORAL SCH ×2 (09:00→17:35)
[2019-07-19 12:00] VITALS: BP 110/61
--- NOTE | 2019-07-19 14:39 | NUR ---
CASE MANAGEMENT:REVIEW SI;CELLULITIS. SCHIZOPHRENIA. FAILURE TO THRIVE. 96.9 100 19 120/68 96% ON RA IS;DEPAKENE PO BID HALDOL IM BID ROCEPHIN IV Q24 HRS REMINYL PO BID IVF D5W @ 75 ML/HR MED SURG STATUS DCP;INPATIENT PSYCH PLACEMENT
--- NOTE | 2019-07-19 15:30 | NUR ---
COMMERCIAL TRUCK DRIVER CONSULT SHARMIN received a consult to refer pt to inpatient psychiatric facility. SHARMIN spoke w/ Luis from [facility] [phone] that there is no geriatric bed, a long wait list and they do not accept bed bound pt. SHARMIN spoke brynn/ Olayinka from [facility] [phone] and faxed the referral packet to [phone] and [phone] (secondary fax #). Signed: 07/19/19 at 1535 by BHAVIK FINNEY <Co-Signature Required>
[2019-07-19 16:00] VITALS: BP 113/65
--- NOTE | 2019-07-19 16:28 | NUR ---
POMOLOGIST NOTE SHARMIN spoke w/ Edy from [facility] [phone] and faxed the referral packet to [phone]. SHARMIN will continue to F/U. Signed: 07/19/19 at 1629 by BHAVIK FINNEY <Co-Signature Required>
--- NOTE | 2019-07-19 17:10 | NUR ---
SQUASH CENTRE MANAGER NOTE SHARMIN spoke w/ Tiffany from [facility] [phone] and was informed that they do not accept bed bounds. SHARMIN will continue to F/U. Signed: 07/19/19 at 1711 by BHAVIK FINNEY <Co-Signature Required>
--- NOTE | 2019-07-19 19:31 | NUR ---
HAND-OFF: Report given to LUIS Pratt.
--- NOTE | 2019-07-19 19:35 | NUR ---
NURSE NOTES: Pt. received from LUIS Chen. Pt. AAOx1, on room air. No indications of pain, no signs of respiratory distress. IV right AC 20g asymptomatic, intact, and patent; D5 1/2NS 75 cc/hr. Pt. calm at this time. Bed is low and locked, side rails x2 up and padded, call light is in reach, and bed alarm is active. Will continue to monitor.
[2019-07-19 20:00] VITALS: BP 118/58
--- NOTE | 2019-07-19 20:45 | NUR ---
NURSE NOTES: Patient refused blood draw from lab, pt. agitated and stating "I'll kill you."
--- NOTE | 2019-07-19 21:30 | NUR ---
NURSE NOTES: Asked pt. if he will take medications, pt. grew agitated again, cursing and threatening with "I'll kill you." Pt. AAOx1, refusing care. Will continue to monitor.
[2019-07-19] MEDS: OLANZapine 10mg tab ORAL SCH (22:00)
[2019-07-19] MEDS: ARIPiprazole 10mg tab ORAL SCH (22:00)
--- NOTE | 2019-07-19 22:47 | Psych Consult Progress Note ---
Psychiatry Progress Note Psychiatry Progress Note Medications Current Medications Medications (Trade) Dose Ordered Sig/Ji Route PRN Reason Start Time Stop Time Status Last Admin Dose Admin Acetaminophen (Tylenol) 325 mg Q4H PRN ORAL For Pain 07/12/19 22:30 08/11/19 22:29 Aripiprazole (Abilify) 10 mg QHS ORAL 07/13/19 21:00 08/12/19 20:59 Benztropine Mesylate (Cogentin) 0.5 mg BID IVP 07/15/19 09:00 08/12/19 08:59 07/18/19 08:58 Bisacodyl (Dulcolax) 10 mg Q8H PRN RECTAL Constipation 07/12/19 22:30 08/11/19 22:29 Ceftriaxone Sodium 1 gm/ Dextrose 55 ml @ 110 mls/hr Q24H IVPB 07/14/19 09:00 07/21/19 08:59 07/19/19 08:56 Clonidine HCl (Catapres TTS-1) 1 patch QWEEK TDERMAL 07/14/19 20:00 08/13/19 19:59 Dextrose/Sodium Chloride 1,000 ml @ 75 mls/hr [id number] IV 07/13/19 06:30 08/12/19 06:29 07/19/19 22:36 Galantamine Hydrobromide (Reminyl) 4 mg BID ORAL 07/13/19 09:00 08/12/19 08:59 07/18/19 08:57 Haloperidol Decanoate (Haldol Decanoate(Long Acting)) 50 mg ONCE ONCE IM 07/19/19 22:30 07/19/19 22:31 UNV Haloperidol Lactate (Haldol) 5 mg BEDTIME IM 07/20/19 21:00 08/19/19 20:59 UNV Haloperidol Lactate (Haldol) 5 mg BID IM 07/20/19 09:00 08/19/19 08:59 Haloperidol Lactate (Haldol) 5 mg Q6H PRN IM Agitation 07/12/19 22:30 08/11/19 22:29 07/14/19 17:53 Heparin Sodium (Porcine) (Heparin 5000 units/ml) 5,000 units EVERY 12 HOURS SUBQ 07/13/19 09:00 08/12/19 08:59 07/18/19 09:00 Olanzapine (ZyPREXA) 10 mg BEDTIME ORAL 07/14/19 21:00 08/13/19 20:59 Valproic Acid (Depakene) 500 mg TWICE A DAY ORAL 07/18/19 18:00 08/17/19 17:59 Allergies: Coded Allergies: PORK/PORCINE CONTAINING PRODUCTS (Verified Allergy, Mild, 08/03/11) Objective Data Height (Feet): 5 Height (Inches): 10.00 Weight (Pounds): 141 Assessment/Plan Status: stable Raphael Leong MD Jul 19, 2019 22:47
[2019-07-20] VITALS: BP 95/69
--- NOTE | 2019-07-20 03:44 | NUR ---
NURSE NOTES: Hourly roundings performed, pt. currently asleep at this time. No events after pt. refusing 2044 lab draw and 2099 meds. Bed is low and locked, side rails up and padded, bed alarm active. Will continue to monitor.
[2019-07-20 04:00] VITALS: BP 109/62
--- NOTE | 2019-07-20 07:20 | NUR ---
HAND-OFF: Report given to LUIS Chen.
--- NOTE | 2019-07-20 07:33 | NUR ---
NURSE NOTES: Patient awake, confused, aggressive, combative; on room air, no sing of distress and shortness of breath; no sing of chest pain; IV Right AC 20G D51/2NS @75cc; side rails up x2 and padded for seizure percussion, breaks engaged, bed at lowest position; call light within reach; will keep monitoring.
[2019-07-20] MEDS ORDERED: OLANZAPINE10 MG ORAL (07:52)
[2019-07-20] MEDS ORDERED: VALPROIC ACID ORAL (07:52)
[2019-07-20] MEDS ORDERED: HALDOL DECONATE IM (07:52)
[2019-07-20 08:00] VITALS: BP 134/74
[2019-07-20] MEDS ORDERED: LORazepam Inj 2mg/ml 1ml IV SCH (08:00)
--- NOTE | 2019-07-20 08:13 | NUR ---
HOME HEALTH CNA NOTE SHARMIN spoke w/ Edy from [facility] [phone] and was informed the packet is currently in review and there is no bed available at this time. SHARMIN spoke w/ Taty from [facility] [phone] that the packet was not received but they do not accept bed bound pt. SHARMIN will continue to F/U. Signed: 07/20/19 at 0821 by BHAVIK FINNEY <Co-Signature Required>
[2019-07-20] MEDS: cefTRIAXone 1 GM in D5W 55 ML IVPB SCH (08:19)
[2019-07-20] MEDS: Galantamine 4mg tab ORAL SCH ×2 (08:22→17:43)
[2019-07-20] MEDS: Heparin 5000 units/ml inj SUBQ SCH (08:22)
[2019-07-20] MEDS ORDERED: Haloperidol Decanoate (Long Acting) 50mg Inj IM ONE (09:00)
--- NOTE | 2019-07-20 10:37 | NUR ---
NURSE NOTES: Patient left the floor for CT. will follow up with that.
--- NOTE | 2019-07-20 10:57 | NUR ---
NURSE NOTES: Patient back from CT.
--- NOTE | 2019-07-20 11:24 | NUR ---
TRADING MANAGER NOTE SW spoke w/ Emi from [facility] [phone] and was informed they do not accept bed bound. SW spoke w/ Jalil from [facility] [phone] and was informed they can accept if pt can get up from the bed, using wheelchair or walker but no total bed bound. SW will continue to F/U. Signed: 07/20/19 at 1126 by BHAVIK FINNEY <Co-Signature Required>
[2019-07-20 12:00] VITALS: BP 127/63
[2019-07-20] MEDS: D5 1/2NS 1,000 ML IV SCH (13:20)
[2019-07-20] MEDS ORDERED: Haloperidol 5mg/ml Inj IM SCH ×2 (14:00→21:00)
--- NOTE | 2019-07-20 14:14 | Diagnostic Imaging Report ---
CLINICAL INDICATION:Chest pain and abdominal pain TECHNIQUE: No oral contrast given, per patient preference. No IV contrast, per referring physician request Spiral acquisitions obtained through the chest, abdomen, and pelvis. Multiplanar reconstructions were generated. Total dose length product 402 mGycm. CTDIvol(s) 5 mGy. Radiation dose was minimized using automated exposure control COMPARISON: none FINDINGS Chest: Posterior dependent atelectatic changes are seen in the upper and lower lobes bilaterally. There may be some consolidation in the left lower lobe as well. No definite effusions. There is some atelectasis or scarring in the inferior lingula. There is some peripheral scarring in the anterolateral right upper lobe. No definite masses or nodules. The heart is upper limits of normal in size. No pericardial effusion. The ascending thoracic aorta is mildly ectatic but not aneurysmal, measuring 3.7 cm in diameter. No mediastinal or hilar mass or adenopathy. There is a small sliding-type hiatal hernia incidentally noted. No axillary or chest wall mass or adenopathy. The thyroid is unremarkable. The bones are unremarkable except for mild degenerative spondylosis changes. Abdomen pelvis: Lack of enteric contrast limits assessment of the GI tract. The appendix is normal. No evidence of diverticulosis or diverticulitis. Mild to moderate retained dense stool is seen in the distal colon. No small bowel distention. No free or loculated intraperitoneal gas or fluid. The stomach and duodenum are unremarkable other than the previously mentioned hiatal hernia. Lack of IV contrast limits assessment of solid organs. The gallbladder contains a calcified gallstone. The liver, bile ducts, pancreas, spleen, adrenals are unremarkable. The kidneys demonstrate fluid attenuation cysts bilaterally. No retroperitoneal or mesenteric mass or adenopathy. No pelvic mass or adenopathy. The prostate is mildly enlarged, measuring 4.6 cm transverse dimension and indenting the floor of the bladder. The bladder is unremarkable. There are prominent inguinal nodes on the left. Sizable venous collaterals are seen in the chest and abdominal wall bilaterally, particularly on the left. There is slight rotoscoliotic deformity and asymmetric appearance to the lower rib cage; this may be in part an artifact of positioning. IMPRESSION: Posterior dependent pulmonary atelectatic changes. Possible left lower lobe consolidation, could indicate focal pneumonia. Correlate with clinical findings Small sliding-type hiatal hernia incidentally noted Limited assessment of the GI tract. Lack of enteric contrast administration Mild to moderate retained distal colonic stool; could indicate constipation, correlate with clinical history Cholelithiasis Mild prostatomegaly Bilateral chest and abdominal wall venous collaterals, could indicate central venoocclusive disease Mild degenerative spondylosis changes The CT scanner at [facility] is accredited by the [employer] and the scans are performed using protocols designed to limit radiation exposure to as low as reasonably achievable to attain images of sufficient resolution adequate for diagnostic evaluation.
[2019-07-20 16:00] VITALS: BP 121/77
--- NOTE | 2019-07-20 17:24 | NUR ---
DISCHARGE PLAN NOTE PATIENT REFERRED BACK TO [facility] AND ACCEPTED PER LUIS NORMAN [employer]ER[employer] MACHINE OPERATOR P: F: 411-C [facility] TRAN[facility]ORT[facility] SCHEDULED WITH [facility] @ EXT 8888 ETA @ 2000 PM PER [facility] NURSES STATION INFORMED
[2019-07-20] MEDS ORDERED: D5 1/2NS 1000ml IV ONE (19:39)
--- NOTE | 2019-07-20 19:39 | NUR ---
HAND-OFF: Report given to LUIS Sheehan.
--- NOTE | 2019-07-20 20:30 | NUR ---
NURSE NOTES: Pt is discharged to [facility] Room 411-C via [facility] in stable condition. Pt is awake and vital signs stable. Report given to Mikal jean at the SNF. Discharge packet and instructions sent with patient. Pt's belongings sent with patient. IV access removed and ID band removed. Pt is unable to sign discharge paperwork because he is confused. Pt's guardian Lindsey Carballo was called and message left regarding discharge.
--- NOTE | 2019-07-20 23:00 | Discharge Summary ---
DATE OF ADMISSION: 07/12/2019 DATE OF DISCHARGE: 07/20/2019 ADMISSION DIAGNOSES: 1. Altered mental status. 2. Encephalopathy. 3. Dehydration. 4. Possible sepsis. 5. Possible pneumonia. 6. Failure to thrive. 7. Psychosis. DISCHARGE DIAGNOSES: 1. Altered mental status. 2. Encephalopathy. 3. Dehydration. 4. Possible sepsis. 5. Possible pneumonia. 6. Failure to thrive. 7. Psychosis. HOSPITAL COURSE: The patient was admitted with complaints of malaise, weakness, dehydration, and weight loss. He had severe agitation and paranoid schizophrenia. He received Haldol IM. Psychiatric consultation was obtained. The patient was also given IV antibiotics for possible cellulitis of the legs. He had very poor p.o. intake. Because of his paranoia, he did eat and drink soup well. On discharge, the patient was stable to be discharged back to long term facility. His weight and p.o. intake that will be monitored there closely. DISCHARGE MEDICATIONS: Please see discharge medication list for discharge medications. DIET: Regular diet. ACTIVITIES: Ad-anita. FOLLOWUP: The patient will follow up in one to two days at long term facility. Alexis Crandall M.D. DR: OSCAR JOB#: [id number] CC:
--- NOTE | 2019-07-21 01:00 | Progress Note ---
DATE: 07/20/2019 SUBJECTIVE: The patient is doing well. No new issues noted. The patient decreased agitation. MENTAL STATUS EXAMINATION: The patient is alert and oriented times self. Mood is anxious. Affect is flat. Thought process is concrete. Thought content, no suicidal or homicidal ideation. Cognition is impaired. ASSESSMENT: Dementia with behavior disturbance. PLAN: The patient will be discharged with current psychotropic medications. Raphael Leong M.D. DR: Olive JOB#: [id number] CC:
--- NOTE | 2019-07-23 11:59 | Coder Physician Query ---
Clarification is required for compliance, coding accuracy, and to reflect severity of illness for this patient. Dear Date:07/23/19 CRINKLING MACHINE OPERATOR: Valarie [facility] HOSPITAL COURSE: The patient was admitted with complaints of malaise, weakness, dehydration, and weight loss. He had severe agitation and paranoid schizophrenia. He received Haldol IM. Psychiatric consultation was obtained. The patient was also given IV antibiotics for possible cellulitis of the legs. VITAL SIGNS: Temperature 98 degrees, pulse 61, respirations 13, and blood pressure 100/54. 07/12/19 - 7.2 WBC DISCHARGE DIAGNOSES: 1. Altered mental status. 2. Encephalopathy. 3. Dehydration. 4. Possible sepsis. 5. Possible pneumonia. 6. Failure to thrive. 7. Psychosis. A posssible diagnois of SEPSIS was made in the medical record in the DISCHARGE SUMMARY ONLY? Upon review, it is difficult to determine whether this diagnosis has been ruled in, ruled out,or is still being worked up. Please indicate below the status of the aforementioned diagnosis. [x] Treated and resolve [] Presumed and treated [] Currently under treatment [] Still being worked-up [] Ruled out Present on Admission: [x] Yes [] No [] Clinically Undetermined HAILEE STONE M.D. Date Please also document in your Progress Notes and/or Discharge Summary and indicate if the condition was present on admission. MTDD
== END 2019-07-20 19:40 | DRG 871 ==
LOC: EDBD 20:40 → EMR 21:13 → 4E 21:20 → EDBEDREQ 22:37 → 4E 07-17 03:22
DX: A41.9 Sepsis, unspecified organism (principal); J18.9 Pneumonia, unspecified organism; F03.91 Unspecified dementia, unspecified severity, with behavioral disturbance; Z68.1 Body mass index [BMI] 19.9 or less, adult; L03.116 Cellulitis of left lower limb; L03.115 Cellulitis of right lower limb; J44.0 Chronic obstructive pulmonary disease with (acute) lower respiratory infection; G93.40 Encephalopathy, unspecified; E86.0 Dehydration; R62.7 Adult failure to thrive; F20.9 Schizophrenia, unspecified; Z86.718 Personal history of other venous thrombosis and embolism; I10 Essential (primary) hypertension; E87.5 Hyperkalemia; F29 Unspecified psychosis not due to a substance or known physiological condition
CPT/HCPCS: 36415; 71045; 71250; 74176; 80053; 80307; 81003; 82140; 82550; 82962; 83605; 83690; 83735; 84443; 84484; 84550; 85025; 85610; 85651; 85730; 87081; 93005; 96360; 99285; J7030

== ENCOUNTER 2020-05-15 10:40 | Inpatient (IN) | payer MEDICARE, MEDICAID ==
[~2020-05-15] VITALS: Ht 175.3 cm; Wt 70.3 kg
[~2020-05-15 10:40] MED LIST changes: +ACETAMINOPHEN120 MG RECTAL; +ACETAMINOPHEN325 M1 ORAL; +HALDOL DECONATE IM; +LAMICTAL100 MG ORAL; +MYLANTA MAXIMU355 ML PO; +OLANZAPINE10 MG ORAL; +VALPROIC ACID ORAL
--- NOTE | 2020-05-15 10:45 | NUR ---
ED Nurse Note: pt biba by william retana from [facility] for vomiting x 3 of coffee ground emesis and one episode of black stool. pt relates abd pain. pt is a/ox1, confused, unsteady gait, hr 112, other vss, nad noted, combative when trying to start iv. iv placed on right fa 20 gauge intact and patent, blood collected and sent to lab, swabbed for covid and sent to lab.
--- NOTE | 2020-05-15 10:45 | NUR ---
ED Nurse Note: checked oral temp 99.9.
[2020-05-15] MEDS ORDERED: ERGOCALCIFEROL1 GM PO (10:55)
[2020-05-15] MEDS ORDERED: METOPROLOL SUCC50 MG ORAL (10:55)
[2020-05-15] MEDS ORDERED: XARELTO10 MG ORAL (10:57)
[2020-05-15] MEDS ORDERED: MULTIVITAMINS1 EAC8 ORAL (10:57)
--- NOTE | 2020-05-15 11:08 | NUR ---
ED Nurse Note: xray at bedside
[2020-05-15 11:15] VITALS: BP 128/76
--- NOTE | 2020-05-15 11:25 | NUR ---
ED Nurse Note: pt resting comfortably in bed with eyes closed. heart rate 70.
[2020-05-15 11:31] LABS: HEMOGLOBIN 15.8 G/DL (14.2-18.0); MEAN CORPUSCULAR VOLUME 96 FL (80-99); PLATELET COUNT 283 K/UL (150-450); RED BLOOD COUNT 4.97 M/UL (4.70-6.10)
--- NOTE | 2020-05-15 11:55 | Emergency Room Report ---
History of Present Illness General Chief Complaint: Gastrointestinal Bleed Source: Medical Record, EMS, PMD Present Illness HPI This patient is brought in from a [facility] facility. The patient is sent in secondary to coffee-ground emesis of 3 episodes in 1 episode of black-colored stool this morning. The patient has a history of dementia, schizophrenia and epilepsy. The patient is unable to care for himself or articulate his needs appropriately. There are no other specific complaints. There is no report of abnormal vital signs or fever or other illness. History was primarily obtained from the medical record and [facility] facility. The patient himself has no specific complaints. Allergies: Coded Allergies: PORK/PORCINE CONTAINING PRODUCTS (Verified Allergy, Mild, 08/03/11) COVID-19 Screening Contact w/high risk pt: No Experienced COVID-19 symptoms?: Yes COVID-19 Testing performed MANAGER BUSINESS PLANNING: Yes COVID-19 Screening: Negative COVID-19 COVID-19 Testing Source: 05/11 Patient History Past Medical History: see triage record, HTN, COPD, dementia, seizures, psych hx Social History: Denies: smoking, alcohol use, drug use Reviewed Nursing Documentation: PMH: Agreed; PSxH: Agreed Nursing Documentation-PMH Past Medical History: No History, Except For Hx Hypertension: Yes Hx COPD: Yes Hx Diabetes: Yes Hx Cancer: No Hx Gastrointestinal Problems: Yes - diverticulitis History Of Psychiatric Problem: Yes - schizophrenic Hx Neurological Problems: Yes Hx Cerebrovascular Accident: Yes Hx Dementia: Yes Hx Seizures: Yes Hx Concentration Difficulty: Yes Hx Neurologic Surgery: No Hx Brain Shunt: No Review of Systems All Other Systems: negative except mentioned in HPI Physical Exam Vital Signs Date Time Temp Pulse Resp B/P (MAP) Pulse Ox O2 Delivery O2 Flow Rate FiO2 05/15/20 10:41 99.9 76 16 128/76 (93) 99 Room Air Sp02 EP Interpretation: reviewed, normal General Appearance: no apparent distress, alert, GCS 15, non-toxic, cachetic, other - frail, elderly Head: normocephalic, atraumatic Eyes: bilateral eye normal inspection, bilateral eye PERRL ENT: hearing grossly normal, normal pharynx, no angioedema, normal voice Neck: normal inspection Respiratory: chest non-tender, lungs clear, normal breath sounds, no respiratory distress, no retraction, no accessory muscle use, speaking full sent ences Cardiovascular #1: regular rate, rhythm, no edema Gastrointestinal: normal bowel sounds, non tender, soft, non-distended, no guarding, no rebound Rectal: deferred Musculoskeletal: normal inspection, normal range of motion, non-tender Neurologic: alert, motor strength/tone normal, sensory intact, responsive, speech normal Psychiatric: mood/affect normal Skin: other - See RN skin exam Medical Decision Making Diagnostic Impression: Primary Impression: Gastroenteritis Additional Impressions: Lactic acid acidosis Coffee ground emesis ER Course This patient presents with vomiting and dark-colored stool. The patient's hemoglobin and hematocrit are within normal limits. This could be a very early undiagnosed GI bleed versus a gastroenteritis. The patient was found to have a lactic acidosis. Patient was given IV fluids, PPI treatment and admitted for further evaluation and treatment. Laboratory Tests Test 05/15/20 10:55 05/15/20 12:06 White Blood Count 14.0 K/UL (4.8-10.8) H Red Blood Count 4.97 M/UL (4.70-6.10) Hemoglobin 15.8 G/DL (14.2-18.0) Hematocrit 48.0 % (42.0-52.0) Mean Corpuscular Volume 96 FL (80-99) Mean Corpuscular Hemoglobin 31.9 PG (27.0-31.0) H Mean Corpuscular Hemoglobin Concent 33.0 G/DL (32.0-36.0) Red Cell Distribution Width 14.0 % (11.6-14.8) Platelet Count 283 K/UL (150-450) Mean Platelet Volume 5.6 FL (6.5-10.1) L Neutrophils (%) (Auto) % (45.0-75.0) Lymphocytes (%) (Auto) % (20.0-45.0) Monocytes (%) (Auto) % (1.0-10.0) Eosinophils (%) (Auto) % (0.0-3.0) Basophils (%) (Auto) % (0.0-2.0) Differential Total Cells Counted 100 Neutrophils % (Manual) 82 % (45-75) H Lymphocytes % (Manual) 14 % (20-45) L Monocytes % (Manual) 4 % (1-10) Eosinophils % (Manual) 0 % (0-3) Basophils % (Manual) 0 % (0-2) Band Neutrophils 0 % (0-8) Platelet Estimate Adequate Platelet Morphology Normal Anisocytosis 1+ D-Dimer 0.81 mg/L FEU (0.00-0.49) H Sodium Level 144 MMOL/L (136-145) Potassium Level 5.1 MMOL/L (3.5-5.1) Chloride Level 109 MMOL/L (98-107) H Carbon Dioxide Level 26 MMOL/L (21-32) Anion Gap 9 mmol/L (5-15) Blood Urea Nitrogen 26 mg/dL (7-18) H Creatinine 1.1 MG/DL (0.55-1.30) Estimated Glomerular Filtration Rate > 60 mL/min (>60) Glucose Level 109 MG/DL (74-106) H Lactic Acid Level 4.80 mmol/L (0.4-2.0) H Calcium Level 9.9 MG/DL (8.5-10.1) Ferritin 106 NG/ML (8-388) Total Bilirubin 0.6 MG/DL (0.2-1.0) Aspartate Amino Transferase (AST) 17 U/L (15-37) Alanine Aminotransferase (ALT) 25 U/L (12-78) Alkaline Phosphatase 53 U/L (46-116) Lactate Dehydrogenase 178 U/L (81-234) Total Creatine Kinase 34 U/L (26-308) Creatine Kinase MB < 0.5 NG/ML (0.0-3.6) Creatine Kinase MB Relative Index 1.4 Troponin I 0.000 ng/mL (0.000-0.056) C-Reactive Protein, Quantitative 1.1 mg/dL (0.00-0.90) H Total Protein 9.4 G/DL (6.4-8.2) H Albumin 4.0 G/DL (3.4-5.0) Globulin 5.4 g/dL Albumin/Globulin Ratio 0.7 (1.0-2.7) L Lipase 105 U/L (73-393) Urine Color Tara Urine Appearance Clear Urine pH 5 (4.5-8.0) Urine Specific Aurora 1.020 (1.005-1.035) Urine Protein 2+ (NEGATIVE) H Urine Glucose (UA) Negative (NEGATIVE) Urine Ketones Negative (NEGATIVE) Urine Blood 1+ (NEGATIVE) H Urine Nitrite Negative (NEGATIVE) Urine Bilirubin Negative (NEGATIVE) Urine Ictotest Pending Urine Urobilinogen Normal MG/DL (0.0-1.0) Urine Leukocyte Esterase 1+ (NEGATIVE) H Urine RBC Pending Urine WBC Pending Urine Squamous Epithelial Cells Pending Urine Bacteria Pending Microbiology Date/Time Source Procedure Growth Status 05/15/20 10:57 Nasopharynx SARS-CoV-2 RdRp Gene Assay - Final Complete EKG Diagnostic Results Troponin ordered: Yes EKG Time: 10:56 Rate: normal Rhythm: other - A.flutter, w/ ectopy, variable block. ST Segments: other - NSST Rhythm Strip Diag. Results EP Interpretation: yes Rate: 80's Rhythm: other - Ectopy, SR, runs of ectopic beats. Chest X-Ray Diagnostic Results Chest X-Ray Diagnostic Results : Chest X-Ray Ordered: Yes # of Views/Limited/Complete: 1 View Indication: Other - emesis EP Interpretation: Yes Interpretation: other - diffuse patchy opacities vs nodules Impression: Other - See above. Nodular opacities bilaterally. Last Vital Signs Date Time Temp Pulse Resp B/P (MAP) Pulse Ox O2 Delivery O2 Flow Rate FiO2 05/15/20 11:15 99.9 78 16 128/76 99 Room Air Status: improved Disposition: ADMITTED INPATIENT Condition: Stable Referrals: Alexis Crandall MD (PCP) Anjana Garcias DO May 15, 2020 11:55
[2020-05-15 11:59] LABS: ANION GAP 9 mmol/L (5-15); BLOOD UREA NITROGEN 26 mg/dL (7-18); CALCIUM 9.9 MG/DL (8.5-10.1); CARBON DIOXIDE 26 MMOL/L (21-32); CHLORIDE 109 MMOL/L (98-107); CREATININE 1.1 MG/DL (0.55-1.30); POTASSIUM 5.1 MMOL/L (3.5-5.1); SODIUM 144 MMOL/L (136-145)
[2020-05-15 12:14] LABS: ALANINE AMINOTRANSFERASE 25 U/L (12-78); ALBUMIN/GLOBULIN RATIO 0.7 (1.0-2.7); ALKALINE PHOSPHATASE 53 U/L (46-116); ASPARTATE AMINO TRANSFERASE 17 U/L (15-37); BILIRUBIN,TOTAL 0.6 MG/DL (0.2-1.0); CKMB < 0.5 NG/ML (0.0-3.6); CREATINE KINASE 34 U/L (26-308); FERRITIN 106 NG/ML (8-388); LACTATE DEHYDROGENASE 178 U/L (81-234)
--- NOTE | 2020-05-15 12:21 | NUR ---
ED Nurse Note: Patient voided x 1. Urine sample collected and sent. Provided comfort measures. Urinal at bedside.
[2020-05-15 12:41] LABS: APPEARANCE,URINE CLEAR; BILIRUBIN, URINE NEGATIVE (NEGATIVE); GLUCOSE, URINE (UA) NEGATIVE (NEGATIVE); KETONES,URINE NEGATIVE (NEGATIVE); LEUKOCYTE ESTERASE ,URINE 1+ (NEGATIVE); NITRITE,URINE NEGATIVE (NEGATIVE); PH,URINE 5 (4.5-8.0); PROTEIN,URINE 2+ (NEGATIVE); UROBILINOGEN,URINE NORMAL MG/DL (0.0-1.0)
[2020-05-15 12:59] LABS: COLOR,URINE YELLOW
[2020-05-15] MEDS ORDERED: Omnipaque-300 100ml vial INJ ONE (13:00)
[2020-05-15] MEDS ORDERED: Pantoprazole Inj IVP ONE (13:00)
[2020-05-15] MEDS ORDERED: Pantoprazole 80 MG in NS 250 ML IV ONE (13:00)
--- NOTE | 2020-05-15 13:16 | Diagnostic Imaging Report ---
Indication: Reason For Exam: Shortness of breath Technique: Single AP view of the chest. Comparison: Chest radiograph dated 07/12/2019 Findings: The cardiomediastinal silhouette is unchanged in appearance. There are scattered interstitial opacities as well as peripheral patchy airspace opacities, for example in the left midlung. Mild peribronchial thickening. No pneumothorax. Biapical scarring is noted. No pleural effusion. No acute osseous abnormality. IMPRESSION: Interstitial opacities and scattered airspace opacities, which are nonspecific but can be seen with atypical/viral pneumonia. Follow-up chest radiograph after appropriate therapy is recommended to assess resolution, especially of left midlung opacity.
--- NOTE | 2020-05-15 13:31 | NUR ---
ED Nurse Note: sent lactic reflex to lab.
--- NOTE | 2020-05-15 13:31 | NUR ---
ED Nurse Note: pt off floor unit for ct scan.
--- NOTE | 2020-05-15 15:02 | Diagnostic Imaging Report ---
CT CHEST WITHOUT CONTRAST INDICATION: Pulmonary mass TECHNIQUE: Continuous helical transaxial imaging of the chest was obtained. Coronal 2-D reformats were also obtained. Study obtained in a Siemens sensation [address] Automatic Exposure Control was utilized. Total Dose length Product (DLP): 234.[address] Dose Index Volume (CTDIvol): 100.1 mGy COMPARISON: Same day chest radiograph, CT chest abdomen pelvis dated 07/20/2019 FINDINGS: Lungs and pleura:. There is biapical scarring. Mild emphysema. Mild interstitial edema. There is diffuse bronchial thickening. There are scattered groundglass opacities. There is superimposed mosaic attenuation. There is mild predominantly peripheral interstitial reticulation, with a projection for the upper lobes. No airspace consolidation. Heart and mediastinum: Mild cardiomegaly. Mild to moderate coronary artery atherosclerotic calcification. No pericardial fluid. Thyroid gland is mildly heterogeneous with scattered tiny subcentimeter hypodense nodules. There is concentric esophageal wall thickening involving the mid to distal esophagus. Airway: Widely patent. Lymph nodes: No lymphadenopathy. Vasculature: Mild aortic atherosclerotic calcification. Main pulmonary artery and ascending aorta are normal in caliber. Upper abdomen: Moderate hiatal hernia. There is cholelithiasis. Bilateral renal cysts. Mild to moderate pancreatic parenchymal atrophy. Focal hypodensity in the dome of liver is unchanged and likely represents a cyst. Bones and soft tissue: Multiple old healed left posterior rib fractures. IMPRESSION: 1. Upper lobe predominant peripheral interstitial reticulation, slightly progressed from prior examination, which is nonspecific but can be seen with chronic pulmonary edema or early pulmonary fibrosis. 2. Mild interstitial edema. 3. Diffuse peribronchial thickening suggestive of infectious/inflammatory airways disease. Scattered ground glass opacities and patchy mosaic attenuation may be related to differential perfusion, however atypical/viral pneumonia should be excluded clinically. 4. Mild emphysema. 5. Diffuse esophageal wall thickening involving the distal esophagus; clinical correlation for esophagitis is recommended, especially reflux esophagitis given moderate hiatal hernia. 6. Mild cardiomegaly. 7. Cholelithiasis without evidence of acute cholecystitis. The CT scanner at [facility] is accredited by the [employer] and the scans are performed using protocols designed to limit radiation exposure to as low as reasonably achievable to attain images of sufficient resolution adequate for diagnostic evaluation
--- NOTE | 2020-05-15 15:05 | NUR ---
ED Nurse Note: attempted to give report to media strategist. was told to call back in 10 minutes. will reattemp in 10 minutes.
--- NOTE | 2020-05-15 15:33 | NUR ---
ED Nurse Note: gave report to robert moulton.
--- NOTE | 2020-05-15 15:40 | NUR ---
ED Nurse Note: pt was admitted to med surg unit due to gastroenteritis, lactic acidosis, and dehydration. pt was transferred to unit by marlee with all belongings. pt remained a/ox1, calm, vss, nad noted, protonix running at 25ml/hr.
[2020-05-15 16:00] VITALS: BP 124/79
--- NOTE | 2020-05-15 16:20 | NUR ---
NURSE NOTES: Patient received while RN was on break, handoff received from Sudeep SMITH. Patient is awake and alert, no signs of distress noted, breathing even and unlabored on room air. Patient not reporting pain or discomfort at this time. right forearm IV is patent and running pantoprazolwe from ER. Bed is low and locked, side rails up x2, call light within reach. Admission orders requested from Dr. Crandall by MARCIAL Ulloa. Awaiting orders.
[2020-05-15] MEDS ORDERED: Haloperidol 5mg/ml Inj IM PRN (16:30)
[2020-05-15] MEDS: Metoprolol Succinate XL 50mg tab ORAL SCH ×2 (16:30→18:18)
[2020-05-15] MEDS: Piperacillin/Tazobactam 3.375 GM in NS 110 ML IVPB SCH (18:18)
--- NOTE | 2020-05-15 19:15 | NUR ---
NURSE HAND-OFF: Important Events on Shift:[admission] Patient Status: stable Diet: cl liquid Pending Orders: Pending Results/Labs:cbc bmp Pending MD notification: Latest Vital Signs: Temperature 99.9 , Pulse , B/P / , Respiratory Rate 18 , O2 SAT 99 , Room Air, O2 Flow Rate . Vital Sign Comment: stable Latest [place] Fall Score: 50 Fall Risk: High Risk Safety Measures: Call light Within Reach, Bed Alarm Zone 2, Side Rails Side Rails x2, Bed position Low and Locked. Fall Precautions: Patient Fall Education Report given to Tad SMITH.
--- NOTE | 2020-05-15 19:30 | NUR ---
NURSE NOTES: Received patient in bed. A&Ox2. IV site patent and intact. Bed in lowest position. Call light within reach. Will continue to monio
--- NOTE | 2020-05-15 19:30 | NUR ---
NURSE NOTES: Received patient in bed. A7ox2
--- NOTE | 2020-05-15 19:30 | NUR ---
NURSE NOTES: Received patient in bed. A&Ox2. IV site patent and intact. Bed in lowest position. Call light within reach. Will continue to monitor.
[2020-05-15 20:00] VITALS: BP 117/76
[2020-05-15] MEDS: OLANZapine 10mg tab ORAL SCH (21:00)
[2020-05-15] MEDS: Pantoprazole Inj IVP SCH (21:04)
[2020-05-16] VITALS: BP 119/61
[2020-05-16] MEDS: Piperacillin/Tazobactam 3.375 GM in NS 110 ML IVPB SCH ×3 (01:36→17:13)
[2020-05-16 04:00] VITALS: BP 118/68
--- NOTE | 2020-05-16 07:25 | NUR ---
NURSE NOTES: Received patient in bed. patient awake, alert, pleasantly confused. HL on tko, on IV ATB . Bed in lowest position.on fall and aspiration precaution Call light within reach. Will continue to monitor .robert servin
--- NOTE | 2020-05-16 07:30 | NUR ---
NURSE HAND-OFF: Important Events on Shift: Patient refused all oral medication and food. Notified Dr. Crandall. Patient Status: Diet: Clear liquid Pending Orders: Pending Results/Labs: Pending MD notification: Latest Vital Signs: Temperature 98.3 , Pulse 80 , B/P 118 /68 , Respiratory Rate 20 , O2 SAT 96 , Room Air, O2 Flow Rate . Vital Sign Comment: Latest [place] Fall Score: 50 Fall Risk: High Risk Safety Measures: Call light Within Reach, Bed Alarm Zone 1, Side Rails Side Rails x2, Bed position Low and Locked. Fall Precautions: Yellow Socks Yellow Gown Door Sign Patient Fall Education Report given to Ashlee SMITH.
[2020-05-16 08:00] VITALS: BP 139/74
[2020-05-16] MEDS: Pantoprazole Inj IVP SCH (08:18)
--- NOTE | 2020-05-16 08:30 | NUR ---
nurse notes patient refused po jose servin rn
[2020-05-16] MEDS: Metoprolol Succinate XL 50mg tab ORAL SCH (09:00)
--- NOTE | 2020-05-16 10:00 | NUR ---
nurse notes called and left message to Lindsey Carballo patient contact information regarding consent for procedure, awating for his call robert servin
--- NOTE | 2020-05-16 10:46 | NUR ---
NURSE NOTES REPORT GIVEN TO DOUGLAS FOR CONTINUITY OF CARE LUIS AVENDANO
--- NOTE | 2020-05-16 10:50 | NUR ---
NURSE NOTES: Received report from Kathy RN. No signs and symptoms of distress at this time. IV dressing intact and dry. Bed lowest position. Call light within reach. Will continue to monitor.
--- NOTE | 2020-05-16 11:15 | Consultation ---
DATE OF CONSULTATION: 05/16/2020 GASTROENTEROLOGY CONSULTATION CONSULTING PHYSICIAN: Dale Moore MD. REFERRING PHYSICIAN: Alexis Crandall MD. CHIEF COMPLAINT: Coffee-grounds emesis. HISTORY OF PRESENT ILLNESS: Most of the history is per chart. An elderly male, group home patient, was brought to the hospital because of coffee-ground emesis x3 and black stools. PAST MEDICAL HISTORY: 1. History of schizophrenia. 2. COPD. 3. DVT. 4. Hypertension. 5. Failure to thrive. PAST SURGICAL HISTORY: Unknown. ALLERGIES: To pork. MEDICATIONS: Please see medication reconciliation list. SOCIAL HISTORY: Currently, he lives in a group home. No history of tobacco, alcohol, or drug abuse. FAMILY HISTORY: Noncontributory. REVIEW OF SYSTEMS: Limited. PHYSICAL EXAMINATION: VITAL SIGNS: Temperature 97.1, pulse 83, respirations 18, blood pressure 110/74. HEENT: Normocephalic and atraumatic. Sclerae are anicteric. NECK: Supple. No evidence of obvious lymphadenopathy. CARDIOVASCULAR: Regular rate and rhythm. Plus S1, S2. LUNGS: Decreased breath sounds bilaterally based on the supine exam. ABDOMEN: Soft, nontender. No rebound. No guarding. No peritoneal sign. EXTREMITIES: No cyanosis, no clubbing, no edema. LABORATORY DATA: White count is 14, hemoglobin 15, hematocrit 40, platelet count is 283,000. INR is 1. ASSESSMENT AND PLAN: This is an 85-year-old male admitted to the hospital with coffee-ground emesis and black stools. The patient would benefit from an endoscopy, which will be scheduled for tomorrow when consented. Meanwhile, we are going to make him NPO after midnight, put him on Protonix. Given the patient does not want to take any medication by mouth, we are going to put him on Protonix IV q.12 h. and perform endoscopy tomorrow. I want to thank Dr. Alexis Crandall for this kind referral. Dale Moore M.D. DR: ANGELICA JOB#: [id number] CC:
[2020-05-16 12:00] VITALS: BP 113/67
--- NOTE | 2020-05-16 12:33 | NUR ---
CASE MANAGEMENT:INITIAL REVIEW 85 YR OLD MALE BIBA FROM [facility] CC;GI BLEED SI;GASTROENTERITIS. LACTIC ACIDOSIS. DEHYDRATION. GI BLEED ~ COFFEE GROUND EMESIS 99.9 78 18 128/76 94% ON RA WBC 14.0 LAC ACID 4.80 CRP 1.1 D-DIMER 0.81 UA+ PROTEIN, BLOOD, LEUKOCYTE ESTERASE, RBC COVID RAPID ~ NEGATIVE CXR ~ Interstitial opacities and scattered airspace opacities, which are nonspecific but can be seen with atypical/viral pneumonia. CHEST CT ~ 1. Upper lobe predominant peripheral interstitial reticulation, slightly progressed from prior examination, which is nonspecific but can be seen with chronic pulmonary edema or early pulmonary fibrosis. 2. Mild interstitial edema. 3. Diffuse peribronchial thickening suggestive of infectious/inflammatory airways disease. Scattered ground glass opacities and patchy mosaic attenuation may be related to differential perfusion, however atypical/viral pneumonia should be excluded clinically. IS;IVF NS BOLUS X2 PROTONIX IV ONCE PROTONIX GTT ADMITTED TO MED SURG MED SURG STATUS DCP; PATIENT IS FROM [facility]
--- NOTE | 2020-05-16 13:00 | NUR ---
NURSE NOTES: Spoke to Carballo (Conservator) regarding procedure tomorrow and consent. Per Carballo:Process to get consent for procedure will take time. Carballo will talk to regarding procedure. office number provided.
[2020-05-16 16:00] VITALS: BP 119/72
--- NOTE | 2020-05-16 17:03 | History and Physical Report ---
DATE OF ADMISSION: 05/15/2020 CHIEF COMPLAINT: GI bleed. HISTORY OF PRESENT ILLNESS: The patient is an 85-year-old male. He has a history of COVID-19 pneumonia, hypertension, schizophrenia, chronic DVT who presented with complaints of coffee-ground emesis. On evaluation in the emergency room, the patient's hemoglobin was stable. He had elevated lactic acid level. In light of the hematemesis, he is now admitted for further evaluation and care. PAST MEDICAL HISTORY: As above. PAST SURGICAL HISTORY: None. CURRENT MEDICATIONS: Reconciled and reviewed. ALLERGIES: Include pork. FAMILY HISTORY: Noncontributory. SOCIAL HISTORY: There is no known history of tobacco, ethanol, or drugs. REVIEW OF SYSTEMS: From the patient is unobtainable as he is confused. PHYSICAL EXAMINATION: VITAL SIGNS: Temperature 98 degrees, blood pressure 130/76, pulse 80, respirations 20. GENERAL: The patient is disheveled male, in no apparent distress. HEENT: Head is normocephalic and atraumatic. Sclerae anicteric. Oropharynx clear. NECK: Supple. HEART: Regular rate and rhythm without murmurs, rubs, gallops. LUNGS: Clear to auscultation. ABDOMEN: Soft, nontender, nondistended. EXTREMITIES: Without clubbing, cyanosis, or edema. LABORATORY DATA: White count was 14,000, hemoglobin 13, platelet count was normal. ASSESSMENT: This is a 85-year-old male with a history of hypertension, COPD, schizophrenia, chronic DVT admitted with complaints of GI bleed. PLAN: Clear liquid diet, IV fluids, IV proton pump inhibitor, GI consultation. The patient may likely need emergent endoscopy. Alexis Crandall M.D. DR: Dilia JOB#: [id number] CC:
--- NOTE | 2020-05-16 19:35 | NUR ---
NURSE HAND-OFF: Important Events on Shift: Possible EGD tomorrow Patient Status: Stable Diet: Clear liquid Pending Orders: N/A Pending Results/Labs: CBC, BMP on 05/16 Pending MD notification: N/A Latest Vital Signs: Temperature 97.3 , Pulse 76 , B/P 119 /72 , Respiratory Rate 19 , O2 SAT 99 , Room Air, O2 Flow Rate . Vital Sign Comment: Stable Latest [place]cal[place] Fall Score: 50 Fall Risk: High Risk Safety Measures: Call light Within Reach, Bed Alarm Zone 1, Side Rails Side Rails x2, Bed position Low and Locked. Fall Precautions: Yellow Socks Yellow Gown Door Sign Patient Fall Education Report given to Jessica SMITH. Patient in stable condition.
--- NOTE | 2020-05-16 19:37 | NUR ---
NURSE NOTES: Patient in bed, resting. Able to make needs known. On room air with no signs of distress or SOB. IV intact and patent. Bed locked and in lowest position. Bed alarm on. Patient will be NPO at midnight. Will continue plan of care.
[2020-05-16 20:00] VITALS: BP 111/65
[2020-05-16] MEDS: OLANZapine 10mg tab ORAL SCH (20:31)
[2020-05-17] VITALS: BP 103/64
--- NOTE | 2020-05-17 02:00 | Cardiology Progress Note ---
Subjective DATE OF SERVICE: May 16, 2020 No respiratory distress No new GI bleeding noted. Objective Last 24 Hour Vital Signs Date Time Temp Pulse Resp B/P (MAP) Pulse Ox O2 Delivery O2 Flow Rate FiO2 05/17/20 00:00 97.0 60 20 103/64 (77) 96 05/16/20 21:00 Room Air 05/16/20 20:00 98.1 64 20 111/65 (80) 97 05/16/20 16:00 97.3 76 19 119/72 (88) 99 05/16/20 12:00 98.3 76 19 113/67 (82) 97 05/16/20 08:22 Room Air 05/16/20 08:00 97.1 83 18 139/74 (95) 97 05/16/20 04:00 98.3 80 20 118/68 (85) 96 ROS: remains unobtainable HEENT: normal ENT inspection LUNGS: diminished breath sounds CARDIAC: normal rate, regular rhythm, normal S1 and S2, gallop/S4 ABDOMEN: normal bowel sounds, non tender, soft EXTREMITIES: non-tender, No edema Microbiology Date/Time Source Procedure Growth Status 05/15/20 14:50 Rectum Received 05/15/20 10:57 Nasopharynx SARS-CoV-2 RdRp Gene Assay - Final Complete Assessment/Plan Assessment/Plan Lactic acidosis resolved Acute upper GI bleeding resolved COPD Paroxysmal atrial ectopy/arrhythmias Possible HC acquired PNA Adjust IVF Resp rx Abx Hold antiplt/anticoagulants Cautious use of beta sameer; observe for bronchospasm Shaw Abraham MD May 17, 2020 01:59
[2020-05-17] MEDS: Piperacillin/Tazobactam 3.375 GM in NS 110 ML IVPB SCH ×3 (02:39→17:27)
[2020-05-17 04:00] VITALS: BP 113/65
--- NOTE | 2020-05-17 04:00 | Consultation ---
DATE OF CONSULTATION: 05/15/2020 CARDIOLOGY CONSULTATION CONSULTING PHYSICIAN: Shaw Abraham MD REFERRING PHYSICIAN: Alexis Crandall MD REASON FOR CONSULTATION: Lactic acidosis. HISTORY OF PRESENT ILLNESS: This 85-year-old male with a history of COVID-19 pneumonia in the past presented to the emergency room with coffee-grounds emesis. He was also noted to have an elevated lactic acid level. I have been asked to assist with cardiovascular care. The patient is unable to give much historical data due to his underlying psychiatric disorder and dementia. Prior records are reviewed. PAST MEDICAL HISTORY: Schizophrenia, dementia, chronic DVT, hypertension, history of COVID-19 infection. ALLERGIES TO MEDICATIONS: None. SOCIAL HISTORY: Possible distant history of alcohol and substance abuse. MEDICATIONS: Reviewed and reconciled. REVIEW OF SYSTEMS: Not reliably obtained. Pertinent data from records reviewed as outlined above. PHYSICAL EXAMINATION: VITAL SIGNS: Blood pressure 128/76, heart rate 76, respiratory rate 16, temperature was 99.9. HEENT: Temporal wasting. Dry mucous membranes. NECK: Supple. LUNGS: Clear with diminished breath sounds. CARDIAC: Regular rhythm rate. Normal S1, S2 with a fourth heart sound. ABDOMEN: Soft. No focal tenderness, guarding, or rebound. EXTREMITIES: No edema. Capillary refill is decreased. LABORATORY DATA: White count 14, hemoglobin 15.8, platelets 283. Sodium 144, potassium 5.1, bicarb 26, BUN 26, creatinine 1.1. Lactic acid 4.8. Troponin is 0. EKG, sinus rhythm with atrial ectopic beats. Chest x-ray with interstitial infiltrates, possibly chronic. IMPRESSION: 1. GI bleeding. 2. History of chronic DVT. 3. Hypertensive heart disease. 4. Lactic acidosis. 5. Paroxysmal atrial ectopy. 6. COPD. 7. Interstitial lung disease. 8. Possible acute pneumonia. PLAN: 1. IV fluid hydration. 2. Proton pump inhibitor. 3. No anti-platelet or anticoagulant therapies. 4. Serial lactic acid levels. 5. Serial hemoglobin. 6. Respiratory hygiene and bronchodilators as needed. 7. Hold antihypertensive therapy at this time with p.r.n. therapy for blood pressure spikes. Shaw Abraham M.D. DR: MERARI JOB#: [id number] CC:
--- NOTE | 2020-05-17 05:30 | NUR ---
NURSE NOTES: Patient refused lab draw. Will try again later this morning per print traffic manager.
--- NOTE | 2020-05-17 05:57 | NUR ---
NURSE NOTES: Patient had diarrhea x3 this shift. Sent stool specimen for C. diff test per protocol.
--- NOTE | 2020-05-17 06:06 | NUR ---
NURSE HAND-OFF: Important Events on Shift: NPO since midnight for possible EGD, Consent still pending, Diarrhea x3 - stool sent to lab for C. diff Patient Status: Stable Diet: NPO Pending Orders: EGD Pending Results/Labs: BMP, CBC Pending MD notification: N/A Latest Vital Signs: Temperature 97.0 , Pulse 54 , B/P 113 /65 , Respiratory Rate 20 , O2 SAT 99 , Room Air, O2 Flow Rate . Vital Sign Comment: N/A Latest [place]cal[place] Fall Score: 50 Fall Risk: High Risk Safety Measures: Call light Within Reach, Bed Alarm Zone 1, Side Rails Side Rails x2, Bed position Low and Locked. Fall Precautions: Yellow Socks Yellow Gown Door Sign Patient Fall Education Addendum: 05/17/20 at 0704 by SAMPSON KENT RN Report given to LUIS Chavez
--- NOTE | 2020-05-17 06:28 | NUR ---
NURSE NOTES: OB stool ordered by Dr. Crandall. Will follow plan of care.
--- NOTE | 2020-05-17 06:56 | General Progress Note ---
Subjective ROS Limited/Unobtainable: No Constitutional: Reports: malaise, weakness HEENT: Reports: no symptoms Cardiovascular: Reports: no symptoms Respiratory: Reports: no symptoms Gastrointestinal/Abdominal: Reports: black stools Genitourinary: Reports: no symptoms Neurologic/Psychiatric: Reports: anxiety, emotional problems, pre-existing deficit Endocrine: Reports: no symptoms Hematologic/Lymphatic: Reports: no symptoms Allergies: Coded Allergies: PORK/PORCINE CONTAINING PRODUCTS (Verified Allergy, Mild, 08/03/11) All Systems: reviewed and negative except above Subjective dark stools. no gross blood. no fever or chills. refusing po meds. otherwise cooperative with care. Objective Last 24 Hour Vital Signs Date Time Temp Pulse Resp B/P (MAP) Pulse Ox O2 Delivery O2 Flow Rate FiO2 05/17/20 04:00 97.0 54 20 113/65 (81) 99 05/17/20 00:00 97.0 60 20 103/64 (77) 96 05/16/20 21:00 Room Air 05/16/20 20:00 98.1 64 20 111/65 (80) 97 05/16/20 16:00 97.3 76 19 119/72 (88) 99 05/16/20 12:00 98.3 76 19 113/67 (82) 97 05/16/20 08:22 Room Air 05/16/20 08:00 97.1 83 18 139/74 (95) 97 Intake and Output 05/16/20 05/17/20 19:00 07:00 Intake Total 1440 ml Balance 1440 ml Intake Oral 1440 ml # Voids 3 1 # Bowel Movements 1 3 Height (Feet): 5 Height (Inches): 9.00 Weight (Pounds): 155 General Appearance: WD/WN, alert, confused Neck: non-tender, normal alignment Cardiovascular: normal peripheral pulses, normal rate Respiratory/Chest: chest wall non-tender, lungs clear, normal breath sounds Abdomen: normal bowel sounds, non tender, soft, no organomegaly Edema: no edema noted Arm (L), no edema noted Arm (R) Neurologic: conversion man II-XII grossly normal, no motor/sensory deficits Assessment/Plan Problem List: (1) Schizophrenia (2) Failure to thrive SNOMED: 68804903 (3) Coffee ground emesis ICD Codes: K92.0 - Hematemesis SNOMED: 77531148 (4) Gastroenteritis ICD Codes: K52.9 - Noninfective gastroenteritis and colitis, unspecified SNOMED: 24953602 Status: stable Assessment/Plan: monitor cbc IV PPI rx stool ob endoscopy venous duplex BP rx per cards pt needs emergent endoscopy due to potentially life threatening bleeding prn anxiolytics skin cAre Alexis Crandall MD May 17, 2020 06:56
--- NOTE | 2020-05-17 07:10 | NUR ---
NURSE NOTES: received patient in bed, patient awake, Able to make needs known. On room air with no signs of distress or SOB. IV intact and patent. Bed locked and in lowest position. Bed alarm on. on NPO status. on fall precaution, both side rails for safety, Will continue plan of care robert servin
[2020-05-17 08:00] VITALS: BP 112/66
[2020-05-17] MEDS: Pantoprazole Inj IVP SCH (08:42)
[2020-05-17] MEDS: Metoprolol Succinate XL 50mg tab ORAL SCH (08:43)
[2020-05-17] MEDS ORDERED: VALPROIC ACID250 MG PO (10:59)
[2020-05-17] MEDS ORDERED: VITAMIN D250 MCG PO (11:05)
[2020-05-17] MEDS ORDERED: HALDOL DEC50 MG/1 ML IM (11:06)
[2020-05-17] MEDS ORDERED: VITAMIN C500 M1 ORAL (11:18)
[2020-05-17] MEDS ORDERED: ZYPREXA5 MG ORAL (11:18)
[2020-05-17] MEDS ORDERED: XARELTO20 MG ORAL (11:18)
--- NOTE | 2020-05-17 11:43 | General Progress Note ---
Subjective ROS Limited/Unobtainable: Yes Allergies: Coded Allergies: PORK/PORCINE CONTAINING PRODUCTS (Verified Allergy, Mild, 08/03/11) Objective Last 24 Hour Vital Signs Date Time Temp Pulse Resp B/P (MAP) Pulse Ox O2 Delivery O2 Flow Rate FiO2 05/17/20 08:43 54 113/65 05/17/20 08:25 Room Air 05/17/20 08:00 98.2 67 18 112/66 (81) 99 05/17/20 04:00 97.0 54 20 113/65 (81) 99 05/17/20 00:00 97.0 60 20 103/64 (77) 96 05/16/20 21:00 Room Air 05/16/20 20:00 98.1 64 20 111/65 (80) 97 05/16/20 16:00 97.3 76 19 119/72 (88) 99 05/16/20 12:00 98.3 76 19 113/67 (82) 97 Intake and Output 05/16/20 05/17/20 19:00 07:00 Intake Total 1440 ml Balance 1440 ml Intake Oral 1440 ml # Voids 3 1 # Bowel Movements 1 3 Height (Feet): 5 Height (Inches): 9.00 Weight (Pounds): 155 General Appearance: no apparent distress EENT: normal ENT inspection Neck: supple Cardiovascular: normal rate Respiratory/Chest: decreased breath sounds Abdomen: normal bowel sounds, non tender, soft Extremities: non-tender Assessment/Plan Status: stable Assessment/Plan: 1. History of schizophrenia. 2. COPD. 3. DVT. 4. Hypertension. 5. Failure to thrive. 6. ? GIB no consdent for EGD no labs >> patient refuses resume diet ppi fu H&H Dale Moore MD May 17, 2020 11:43
[2020-05-17 12:00] VITALS: BP 116/65
--- NOTE | 2020-05-17 13:24 | NUR ---
CASE MANAGEMENT:REVIEW SI;GI BLEED. GASTROENTERITIS. FTT. 98.2 54 20 116/65 95% ON RA IS;ZOSYN IV Q8 PROTONIX IV QD MED SURG STATUS DCP;FROM [facility] PLAN; VENOUS DUPLEX EGD
[2020-05-17 16:03] VITALS: BP 118/60
--- NOTE | 2020-05-17 17:59 | Diagnostic Imaging Report ---
EXAM: US Duplex Bilateral Lower Extremities Veins CLINICAL HISTORY: DVT TECHNIQUE: Real-time duplex ultrasound scan of the bilateral lower extremity veins integrating B-mode two-dimensional vascular structure, Doppler spectral analysis, color flow Doppler imaging and compression. COMPARISON: No previous studies. FINDINGS: Right deep veins: Limited evaluation of the lower extremity deep venous systems due to lack contractures. Nonocclusive deep venous thrombosis is noted in the right distal superficial femoral vein, right popliteal vein. The remaining segments of the lower extremity deep venous systems are patent bilaterally. Right superficial veins: Unremarkable. No thrombus in the visualized right great saphenous vein. Left deep veins: Nonocclusive DVT seen in the left common femoral vein to the left distal superficial vein. The left popliteal region was not visualized due to contracture. Left superficial veins: Unremarkable. No thrombus in the visualized left great saphenous vein. Soft tissues: No acute findings. No popliteal cyst. IMPRESSION: 1. Bilateral nonocclusive deep venous thrombosis. 2. On the right side, the right superficial femoral vein distally, the right popliteal vein are involved. 3. On the left side, nonocclusive DVT is noted extending from the left common femoral vein to the distal left superficial femoral vein. Please see above discussion. <MYCVCSECTION> Communications: 05/17/20 18:06 Call Doctor Regarding Above results, called Alexis Crandall MD on 05/17 18:05 (-08:00)
--- NOTE | 2020-05-17 18:39 | NUR ---
nurse notes notified Dr Crandall regarding patient Venous Dupplex result awaiting for her call robert servin
--- NOTE | 2020-05-17 19:07 | NUR ---
NURSE NOTES: Patient in bed, resting. Able to make needs known. On room air with no signs of distress or SOB. IV intact and patent. Bed locked and in lowest position. Bed alarm on. Will continue plan of care.
--- NOTE | 2020-05-17 19:25 | NUR ---
NURSE HAND-OFF: Important Events on Shift:[Isael Venous Duplex done relayed result to PMD ] Patient Status: [STABLE] Diet: [CARDIAC DIET] Pending Orders: [LABS IN AM] Pending Results/Labs:[NONE] Pending MD notification:[NONE] Latest Vital Signs: Temperature 97.4 , Pulse 79 , B/P 118 /60 , Respiratory Rate 19 , O2 SAT 94 , Room Air, O2 Flow Rate . Vital Sign Comment: [STABLE] Latest [place] Fall Score: 50 Fall Risk: High Risk Safety Measures: Call light Within Reach, Bed Alarm Zone 1, Side Rails Side Rails x2, Bed position Low and Locked. Fall Precautions: Yellow Socks Yellow Gown Door Sign Patient Fall Education Report given to [ Ms. Beaver RN accordingly].
[2020-05-17 20:00] VITALS: BP 112/68
[2020-05-17] MEDS: OLANZapine 10mg tab ORAL SCH (20:45)
--- NOTE | 2020-05-17 20:53 | NUR ---
NURSE NOTES: Patient refused PM medications, yelling "No pills!". RN unsuccessful at reorienting the patient, or explaining risks and benefits. Meds wasted in the Pyxis and disposed in waste container in med room.
--- NOTE | 2020-05-17 23:49 | Cardiology Progress Note ---
Subjective DATE OF SERVICE: May 17, 2020 No respiratory distress No new GI bleeding noted. Patient refused labs, and refuses EGD. Venous Duplex revealed bilateral NONocclusive thrombus. Objective Last 24 Hour Vital Signs Date Time Temp Pulse Resp B/P (MAP) Pulse Ox O2 Delivery O2 Flow Rate FiO2 05/17/20 20:06 Room Air 05/17/20 16:03 97.4 79 19 118/60 (79) 94 05/17/20 12:00 97.8 62 18 116/65 (82) 95 05/17/20 08:43 54 113/65 05/17/20 08:25 Room Air 05/17/20 08:00 98.2 67 18 112/66 (81) 99 05/17/20 04:00 97.0 54 20 113/65 (81) 99 05/17/20 00:00 97.0 60 20 103/64 (77) 96 ROS: remains unobtainable HEENT: normal ENT inspection LUNGS: diminished breath sounds CARDIAC: normal rate, regular rhythm, normal S1 and S2, gallop/S4 ABDOMEN: normal bowel sounds, non tender, soft EXTREMITIES: non-tender, No edema Microbiology Date/Time Source Procedure Growth Status 05/15/20 14:50 Rectum Received 05/15/20 10:57 Nasopharynx SARS-CoV-2 RdRp Gene Assay - Final Complete Assessment/Plan Assessment/Plan Lactic acidosis resolved Acute upper GI bleeding resolved COPD Paroxysmal atrial ectopy/arrhythmias Possible HC acquired PNA Bilateral non-occlusive LE thrombosis Adjust IVF Resp rx Abx Hold antiplt/anticoagulants due to bleeding risk Cautious use of beta sameer; observe for bronchospasm Shaw Abraham MD May 17, 2020 23:49
[2020-05-18] VITALS: BP 103/61
[2020-05-18] MEDS: Piperacillin/Tazobactam 3.375 GM in NS 110 ML IVPB SCH ×3 (02:29→17:37)
--- NOTE | 2020-05-18 03:54 | NUR ---
NURSE NOTES: Observed patient refusing blood draw from planting supervisor, yelling "no blood!". Explained to risk and benefits but patient continues to refuse.
[2020-05-18 04:00] VITALS: BP 126/71
--- NOTE | 2020-05-18 07:38 | NUR ---
NURSE HAND-OFF: Important Events on Shift: Refused labs/PO meds Patient Status: Stable Diet: Cardiac Pending Orders: EGD Pending Results/Labs: BMP, CBC, CMP Pending MD notification: N/A Latest Vital Signs: Temperature 97.4 , Pulse 51 , B/P 126 /71 , Respiratory Rate 20 , O2 SAT 97 , Room Air, O2 Flow Rate . Vital Sign Comment: N/A Latest [place] Fall Score: 50 Fall Risk: High Risk Safety Measures: Call light Within Reach, Bed Alarm Zone 1, Side Rails Side Rails x2, Bed position Low and Locked. Fall Precautions: Yellow Socks Yellow Gown Door Sign Patient Fall Education Report given to LUIS Carvalho.
--- NOTE | 2020-05-18 07:40 | NUR ---
NURSE NOTES: Patient lying in bed sleeping. No signs and symptoms of pain or distress at this time. IV dressing intact and dry. Bed lowest position. Call light within reach. Will continue to monitor.
[2020-05-18 08:00] VITALS: BP 127/69
--- NOTE | 2020-05-18 08:28 | General Progress Note ---
Subjective ROS Limited/Unobtainable: No Allergies: Coded Allergies: PORK/PORCINE CONTAINING PRODUCTS (Verified Allergy, Mild, 08/03/11) Objective Last 24 Hour Vital Signs Date Time Temp Pulse Resp B/P (MAP) Pulse Ox O2 Delivery O2 Flow Rate FiO2 05/18/20 04:00 97.4 51 20 126/71 (89) 97 05/18/20 00:00 98.0 55 18 103/61 (75) 98 05/17/20 20:06 Room Air 05/17/20 20:00 98.0 56 20 112/68 (83) 98 05/17/20 16:03 97.4 79 19 118/60 (79) 94 05/17/20 12:00 97.8 62 18 116/65 (82) 95 05/17/20 08:43 54 113/65 Intake and Output 05/17/20 05/18/20 19:00 07:00 Intake Total 349.5 ml 200 ml Output Total 600 ml 500 ml Balance -250.5 ml -300 ml Intake Oral 200 ml 200 ml IV Total 149.5 ml Output Urine Total 600 ml 500 ml # Voids 1 # Bowel Movements 1 1 Height (Feet): 5 Height (Inches): 9.00 Weight (Pounds): 155 General Appearance: no apparent distress EENT: PERRL/EOMI Neck: supple Cardiovascular: normal rate Respiratory/Chest: decreased breath sounds Abdomen: normal bowel sounds, non tender, soft Extremities: non-tender Assessment/Plan Status: stable Assessment/Plan: 1. History of schizophrenia. 2. COPD. 3. DVT. 4. Hypertension. 5. Failure to thrive. 6. ? GIB no consent for EGD no labs >> patient refuses on diet ppi lin Elias&H Dale Moore MD May 18, 2020 08:28
[2020-05-18] MEDS: Metoprolol Succinate XL 50mg tab ORAL SCH (09:00)
[2020-05-18] MEDS: Pantoprazole Inj IVP SCH (09:23)
--- NOTE | 2020-05-18 09:34 | NUR ---
NURSE NOTES: Patient refused Lamictal and Metoprolol. Explained risks and benefits but still refuse. Will continue to monitor.
--- NOTE | 2020-05-18 11:59 | General Progress Note ---
Subjective ROS Limited/Unobtainable: No Constitutional: Reports: malaise, weakness HEENT: Reports: no symptoms Cardiovascular: Reports: no symptoms Respiratory: Reports: cough Gastrointestinal/Abdominal: Reports: no symptoms Genitourinary: Reports: no symptoms Neurologic/Psychiatric: Reports: no symptoms Endocrine: Reports: no symptoms Hematologic/Lymphatic: Reports: no symptoms Allergies: Coded Allergies: PORK/PORCINE CONTAINING PRODUCTS (Verified Allergy, Mild, 08/03/11) All Systems: reviewed and negative except above Subjective no new complaints. uncooperative/noncompliant with meds. no reports of bleeding. no fever or chills. no sob. +dvt on US- unclear if acute or chronic Objective Last 24 Hour Vital Signs Date Time Temp Pulse Resp B/P (MAP) Pulse Ox O2 Delivery O2 Flow Rate FiO2 05/18/20 09:00 Room Air 05/18/20 08:00 97.9 61 19 127/69 (88) 97 05/18/20 04:00 97.4 51 20 126/71 (89) 97 05/18/20 00:00 98.0 55 18 103/61 (75) 98 05/17/20 20:06 Room Air 05/17/20 20:00 98.0 56 20 112/68 (83) 98 05/17/20 16:03 97.4 79 19 118/60 (79) 94 05/17/20 12:00 97.8 62 18 116/65 (82) 95 Intake and Output 05/17/20 05/18/20 19:00 07:00 Intake Total 349.5 ml 200 ml Output Total 600 ml 500 ml Balance -250.5 ml -300 ml Intake Oral 200 ml 200 ml IV Total 149.5 ml Output Urine Total 600 ml 500 ml # Voids 1 # Bowel Movements 1 1 Height (Feet): 5 Height (Inches): 9.00 Weight (Pounds): 155 Objective General Appearance: WD/WN, alert, confused Neck: non-tender, normal alignment Cardiovascular: normal peripheral pulses, normal rate Respiratory/Chest: chest wall non-tender, lungs clear, normal breath sounds Abdomen: normal bowel sounds, non tender, soft, no organomegaly Edema: no edema noted Arm (L), no edema noted Arm (R) Neurologic: head custodian II-XII grossly normal, no motor/sensory deficits Assessment/Plan Problem List: (1) Schizophrenia (2) Failure to thrive SNOMED: 73030469 (3) Coffee ground emesis ICD Codes: K92.0 - Hematemesis SNOMED: 32632220 (4) Gastroenteritis ICD Codes: K52.9 - Noninfective gastroenteritis and colitis, unspecified SNOMED: 13389500 Status: stable Assessment/Plan: monitor cbc IV PPI rx stool ob venous duplex- noted check kub- ?has filter if dvt chronic- no further rx. If acute may need ivf filter if not present BP rx per cards pt needs emergent endoscopy due to potentially life threatening bleeding prn anxiolytics skin cAre Alexis Crandall MD May 18, 2020 11:58
[2020-05-18 12:00] VITALS: BP 129/70
--- NOTE | 2020-05-18 14:07 | Diagnostic Imaging Report ---
EXAM: XR Abdomen, 1 View CLINICAL HISTORY: DVT TECHNIQUE: Frontal supine view of the abdomen/pelvis. COMPARISON: No relevant prior studies available. FINDINGS: Gastrointestinal tract: Gassy dilated ascending colon and dilated small bowel loops are nonspecific. Maybe distal colonic obstruction versus ileus. Bones/joints: Degenerative changes of the spine. Soft tissues: Surgical clips in the left abdomen. IMPRESSION: Gassy dilated ascending colon and dilated small bowel loops are nonspecific. Maybe distal colonic obstruction versus ileus.
[2020-05-18 16:00] VITALS: BP 121/67
--- NOTE | 2020-05-18 19:50 | NUR ---
NURSE HAND-OFF: Important Events on Shift:N/A Patient Status: Stable Diet: Cardiac diet Pending Orders: N/A Pending Results/Labs:N/A Pending MD notification:N/A Latest Vital Signs: Temperature 98.5 , Pulse 76 , B/P 121 /67 , Respiratory Rate 18 , O2 SAT 98 , Room Air, O2 Flow Rate . Vital Sign Comment: Stable Latest [place] Fall Score: 50 Fall Risk: High Risk Safety Measures: Call light Within Reach, Bed Alarm Zone 1, Side Rails Side Rails x2, Bed position Low and Locked. Fall Precautions: Yellow Socks Yellow Gown Door Sign Patient Fall Education Report given to Lea COTA. Patient in stable condition.
[2020-05-18 20:00] VITALS: BP 121/72
--- NOTE | 2020-05-18 20:00 | NUR ---
NURSE NOTES: RECEIVED PATIENT LYING IN BED, AWAKE, ALERT/ORIENTED X2, VERBALLY RESPONSIVE, DENIES PAIN. NO SIGNS AND SYMPTOMS OF ACUTE CARDIO RESPIRATORY DISTRESS/SHORTNESS OF BREATH, DENIES CHEST PAIN, NO PERIPHERAL EDEMA NOTED. IV SITE INTACT TO RIGHT FOREARM/GAUGE 20, NO REDNESS/SWELLING NOTED. ABDOMEN SOFT/NON DISTENDED/NON TENDER/BOWEL SOUNDS AUDIBLE, INCONTINENT OF STOOL/DIARRHEA, CARE PROVIDED, REPOSITIONED FOR COMFORT/PRESSURE RELIEF, TOLERATED WELL. SIDE RAILS UP X3, BED IN LOWEST POSITION FOR SAFETY, FREQUENT ROUNDING FOR SAFETY/NEEDS. CONTINUE WITH CURRENT PLAN OF CARE. NAD.
--- NOTE | 2020-05-18 20:31 | NUR ---
NURSE NOTES: PATIENT STATED THAT WHITE PILLS WERE FOR "LESBIANS", HE ONLY TAKE BLUE PILLS BECAUSE HE EAT BRAINS. MULTIPLE ATTEMPTS WERE MADE EXPLAINING BENEFITS OF MEDICATION, PATIENT VERY ADAMANT ABOUT NOT TAKING MEDS.
[2020-05-18] MEDS: OLANZapine 10mg tab ORAL SCH (21:00)
[2020-05-19] VITALS: BP 116/66
[2020-05-19] MEDS: Piperacillin/Tazobactam 3.375 GM in NS 110 ML IVPB SCH ×3 (01:57→18:00)
--- NOTE | 2020-05-19 02:14 | Cardiology Progress Note ---
Subjective DATE OF SERVICE: May 18, 2020 No respiratory distress No new GI bleeding noted. Patient refused labs, and refuses EGD. Venous Duplex revealed bilateral NONocclusive thrombus. Objective Last 24 Hour Vital Signs Date Time Temp Pulse Resp B/P (MAP) Pulse Ox O2 Delivery O2 Flow Rate FiO2 05/19/20 00:00 98.1 59 15 116/66 (83) 99 05/18/20 20:56 Room Air 05/18/20 20:00 97.8 64 17 121/72 (88) 98 05/18/20 16:00 98.5 76 18 121/67 (85) 98 05/18/20 12:00 98.6 70 18 129/70 (89) 97 05/18/20 09:00 Room Air 05/18/20 08:00 97.9 61 19 127/69 (88) 97 05/18/20 04:00 97.4 51 20 126/71 (89) 97 ROS: remains unobtainable HEENT: normal ENT inspection LUNGS: diminished breath sounds CARDIAC: normal rate, regular rhythm, normal S1 and S2, gallop/S4 ABDOMEN: normal bowel sounds, non tender, soft EXTREMITIES: non-tender, No edema Microbiology Date/Time Source Procedure Growth Status 05/17/20 05:48 Stool Clostridium difficile Toxin Assay - Final Complete Assessment/Plan Assessment/Plan Lactic acidosis resolved Acute upper GI bleeding resolved COPD Paroxysmal atrial ectopy/arrhythmias Possible HC acquired PNA Bilateral non-occlusive LE thrombosis Adjust IVF Resp rx Abx Hold antiplt/anticoagulants due to bleeding risk Cautious use of beta sameer; observe for bronchospasm Shaw Abraham MD May 19, 2020 02:14
[2020-05-19 04:00] VITALS: BP 120/70
--- NOTE | 2020-05-19 07:45 | NUR ---
NURSE NOTES: Received report from LUIS Lopez. Patient lying in bed sleeping, on RA, breathing even and unlabored. No signs and symptoms of pain or distress at this time. IV dressing intact and dry. Bed lowest position and locked. Call light within reach. Will continue to monitor.
--- NOTE | 2020-05-19 07:55 | NUR ---
NURSE HAND-OFF: Important Events on Shift:[REMAIN NON COMPLIANT WITH PLAN OF CARE, REFUSING MEDICATIONS] Patient Status: [STABLE, AFEBRILE] Diet: [CARDIAC] Pending Orders: [POSSIBLE EGD, NO CONSENT] Pending Results/Labs:[] Pending MD notification:[] Latest Vital Signs: Temperature 97.9 , Pulse 61 , B/P 120 /70 , Respiratory Rate 16 , O2 SAT 98 , Room Air, O2 Flow Rate . Vital Sign Comment: [] Latest [place] Fall Score: 50 Fall Risk: High Risk Safety Measures: Call light Within Reach, Bed Alarm Zone 1, Side Rails Side Rails x2, Bed position Low and Locked. Fall Precautions: Yellow Socks Yellow Gown Door Sign Patient Fall Education Report given to []. Addendum: 05/19/20 at 0806 by NIMA CANALES LVN HAND OFF TO LUIS DONOVAN
[2020-05-19 08:00] VITALS: BP 110/62
[2020-05-19] MEDS ORDERED: PROTONIX40 MG ORAL (08:47)
--- NOTE | 2020-05-19 08:50 | General Progress Note ---
Subjective ROS Limited/Unobtainable: No Constitutional: Reports: no symptoms HEENT: Reports: no symptoms Cardiovascular: Reports: no symptoms Respiratory: Reports: no symptoms Gastrointestinal/Abdominal: Reports: no symptoms Genitourinary: Reports: no symptoms Neurologic/Psychiatric: Reports: anxiety, depressed Endocrine: Reports: no symptoms Hematologic/Lymphatic: Reports: no symptoms Allergies: Coded Allergies: PORK/PORCINE CONTAINING PRODUCTS (Verified Allergy, Mild, 08/03/11) All Systems: reviewed and negative except above Subjective no events. no reports of bleeding no fever or chills. refusing endoscopy. prior hx of chronic dvt. Objective Last 24 Hour Vital Signs Date Time Temp Pulse Resp B/P (MAP) Pulse Ox O2 Delivery O2 Flow Rate FiO2 05/19/20 04:00 97.9 61 16 120/70 (87) 98 05/19/20 00:00 98.1 59 15 116/66 (83) 99 05/18/20 20:56 Room Air 05/18/20 20:00 97.8 64 17 121/72 (88) 98 05/18/20 16:00 98.5 76 18 121/67 (85) 98 05/18/20 12:00 98.6 70 18 129/70 (89) 97 05/18/20 09:00 Room Air Intake and Output 05/18/20 05/19/20 19:00 07:00 Intake Total 415.0 ml Output Total 1200 ml 1400 ml Balance -1200 ml -985.0 ml Intake Oral 360 ml IV Total 55.0 ml Output Urine Total 1200 ml 1400 ml # Voids 2 # Bowel Movements 2 Height (Feet): 5 Height (Inches): 9.00 Weight (Pounds): 155 Objective General Appearance: WD/WN, alert, confused Neck: non-tender, normal alignment Cardiovascular: normal peripheral pulses, normal rate Respiratory/Chest: chest wall non-tender, lungs clear, normal breath sounds Abdomen: normal bowel sounds, non tender, soft, no organomegaly Edema: no edema noted Arm (L), no edema noted Arm (R) Neurologic: special delivery messenger II-XII grossly normal, no motor/sensory deficits Assessment/Plan Problem List: (1) Schizophrenia (2) Failure to thrive SNOMED: 60922720 (3) Coffee ground emesis ICD Codes: K92.0 - Hematemesis SNOMED: 63326022 (4) Gastroenteritis ICD Codes: K52.9 - Noninfective gastroenteritis and colitis, unspecified SNOMED: 88979031 Status: stable Assessment/Plan: monitor for bleeding PPI rx dc xarelto- cannot safely anticoagulate dvt- likely chronic dc planning to snf monitor for bleeding repeat duplex at [facility] psych rx Alexis Crandall MD May 19, 2020 08:50
[2020-05-19] MEDS: Metoprolol Succinate XL 50mg tab ORAL SCH (09:00)
[2020-05-19] MEDS: Pantoprazole Inj IVP SCH (09:00)
--- NOTE | 2020-05-19 09:10 | NUR ---
DISCHARGE PLANNING CLINICALS FAXED TO [facility] CALLED [facility] AND SPOKE WITH JONAH WHO STATED SHE WILL HAVE TO CALL HER [facility] TO SEE IF THEY CAN ACCEPT PATIENT TODAY. AWAIT RETURN CALL
--- NOTE | 2020-05-19 09:30 | NUR ---
NURSE NOTES: Patient refused Lamictal and Metoprolol scheduled at 0900. Explained risks and benefits but still refused.
--- NOTE | 2020-05-19 10:53 | General Progress Note ---
Subjective ROS Limited/Unobtainable: No Allergies: Coded Allergies: PORK/PORCINE CONTAINING PRODUCTS (Verified Allergy, Mild, 08/03/11) Objective Last 24 Hour Vital Signs Date Time Temp Pulse Resp B/P (MAP) Pulse Ox O2 Delivery O2 Flow Rate FiO2 05/19/20 09:00 63 110/62 05/19/20 08:00 98.8 63 18 110/62 (78) 96 05/19/20 04:00 97.9 61 16 120/70 (87) 98 05/19/20 00:00 98.1 59 15 116/66 (83) 99 05/18/20 20:56 Room Air 05/18/20 20:00 97.8 64 17 121/72 (88) 98 05/18/20 16:00 98.5 76 18 121/67 (85) 98 05/18/20 12:00 98.6 70 18 129/70 (89) 97 Intake and Output 05/18/20 05/19/20 19:00 07:00 Intake Total 415.0 ml Output Total 1200 ml 1400 ml Balance -1200 ml -985.0 ml Intake Oral 360 ml IV Total 55.0 ml Output Urine Total 1200 ml 1400 ml # Voids 2 # Bowel Movements 2 Height (Feet): 5 Height (Inches): 9.00 Weight (Pounds): 155 General Appearance: no apparent distress EENT: PERRL/EOMI Neck: supple Cardiovascular: normal rate Respiratory/Chest: decreased breath sounds Abdomen: normal bowel sounds, non tender, soft Extremities: non-tender Assessment/Plan Status: stable Assessment/Plan: 1. History of schizophrenia. 2. COPD. 3. DVT. 4. Hypertension. 5. Failure to thrive. 6. ? GIB no consent for EGD no labs >> patient refuses on diet ppi lin H&H Dale Moore MD May 19, 2020 10:53
[2020-05-19 12:00] VITALS: BP 102/58
--- NOTE | 2020-05-19 12:36 | NUR ---
DISCHARGE PLANNED RECEIVED CALL BACK FROM JONAH AT [facility] PATIENT WILL BE RETURNING TO [facility] ROOM 318-A SKILLED T: [phone] FOR NURSE REPORT [facility] FOR 1530 HAND QUILTER Addendum: 05/19/20 at 1243 by TARA GIFFORD LVN LVN ZEINAB BEDSIDE NURSE VENUS
--- NOTE | 2020-05-19 13:27 | NUR ---
NURSE NOTES: Called [facility] and spoke with Mikal for report.
--- NOTE | 2020-05-19 15:20 | NUR ---
NURSE NOTES: Received phone call from [facility], notified they will arrive around [phone]
[2020-05-19 16:00] VITALS: BP 127/70
--- NOTE | 2020-05-19 18:55 | NUR ---
NURSE NOTES: Pt in stable condition. Transfer report given to ambulance personnel. All belongings were accounted for. IV and ID removed. Pt clean and dry. Pt transferred to [facility] via [facility] by [facility].
--- NOTE | 2020-05-20 01:33 | Cardiology Progress Note ---
Subjective DATE OF SERVICE: May 19, 2020 No respiratory distress No new GI bleeding noted. Patient refused labs, and still refuses EGD. Venous Duplex revealed bilateral NONocclusive thrombus. Objective Last 24 Hour Vital Signs Date Time Temp Pulse Resp B/P (MAP) Pulse Ox O2 Delivery O2 Flow Rate FiO2 05/19/20 16:00 98.8 57 18 127/70 (89) 96 05/19/20 12:00 98.2 62 18 102/58 (73) 96 05/19/20 09:00 63 110/62 05/19/20 09:00 Room Air 05/19/20 08:00 98.8 63 18 110/62 (78) 96 05/19/20 04:00 97.9 61 16 120/70 (87) 98 ROS: remains unobtainable HEENT: normal ENT inspection LUNGS: diminished breath sounds CARDIAC: normal rate, regular rhythm, normal S1 and S2, gallop/S4 ABDOMEN: normal bowel sounds, non tender, soft EXTREMITIES: non-tender, No edema Microbiology Date/Time Source Procedure Growth Status 05/17/20 05:48 Stool Clostridium difficile Toxin Assay - Final Complete Assessment/Plan Assessment/Plan Lactic acidosis resolved Acute upper GI bleeding resolved COPD Paroxysmal atrial ectopy/arrhythmias Possible HC acquired PNA Bilateral non-occlusive LE thrombosis Resp rx Abx at SNF Hold antiplt/anticoagulants due to bleeding risk Cautious use of beta sameer; observe for bronchospasm Conserv management Shaw Abraham MD May 20, 2020 01:33
--- NOTE | 2020-05-21 08:29 | Discharge Summary ---
Discharge Summary Discharge Summary _ DATE OF ADMISSION: 05/15/2020 DATE OF DISCHARGE: 05/19/2020 DISCHARGED BY: Dr. Crandall REASON FOR ADMISSION: 85 years old male, resident of prison facility, with past medical history of seizure disorder, hypertension, COPD, dementia, psychiatric history , was sent for evaluation due to coffee-ground emesis x3 and one episode of black- colored stool earlier in the morning. Upon evaluation he had low-grade fever 99.9. Laboratory work-up revealed leukocytosis WBC 14, stable hemoglobin , hematocrit and platelet count. Stable electrolytes. BUN 26, creatinine 1.1. Lactic acid 4.8. Troponin negative. EKG revealed atrial flutter with normal rate variable block. LFT and lipase within normal range. Chest x-ray demonstrated interstitial opacities and scattered airspace opacities, nonspecific. Rapid COVID-[address] scan of the chest showed upper lobe peripheral reticulation , slightly progressed from the previous exam , nonspecific; but can be seen with chronic pulmonary edema or early pulmonary fibrosis. Diffuse peribronchial thickening , suggestive of infectious/inflammatory airway disease. Mild emphysema. Cholelithiasis without evidence of cholecystitis. In emergency department patient received IV fluids, PPI and admitted for further management. CONSULTANTS: tile sorter GI specialist [facility] COURSE: IV hydration and PPI provided. Patient started in clear liquid diet. Patient started on empiric antibiotic for possible pneumonia. GI specialist followed. Unable to obtain consent for endoscopy. Subsequently diet was resumed as clear liquid diet and was advance as tolerated . Hemoglobin and hematocrit were ordered , but patient refused further labs PPI continued. Lactic acidosis resolved. Supplemental oxygen was on board as needed to keep pulse oximetry above 92%. Dairy Husbandman recommended to hold antiplatelet/anticoagulation due to bleeding risk and cautious use of beta-sameer. Venous duplex bilateral lower extremity revealed bilateral nonocclusive deep venous thrombosis, likely chronic . Dairy Husbandman recommended conservative management. Leukocytosis resolved. Seizure precaution maintained. Lamictal continued. No evidence of seizure activity while in the hospital. Psychiatric medication continued. No further episodes of GI bleeding . Patient was ready for discharge to the prison [facility] for continuation of care. Repeat venous duplex at the facility. Follow up with labs at the facility. FINAL DIAGNOSES: Gastroenteritis Lactic acidosis -resolved Acute upper GI bleeding -resolved COPD Paroxysmal atrial ectopy Possible healthcare acquired pneumonia Bilateral nonocclusive lower extremity thrombosis, chronic Schizophrenia DISCHARGE MEDICATIONS: See Medication Reconciliation list. DISCHARGE INSTRUCTIONS: Patient was discharged to the prison facility. Follow up with medical doctor at the facility. I have been assigned to dictate discharge summary for this account. I was not involved in the patient's management. Syl Macias NP May 21, 2020 08:29
== END 2020-05-19 18:55 | DRG 377 ==
LOC: EDBD 10:40 → EDUNIT# 10:40 → EMR 11:10 → 4E 12:52 → EDBEDREQ 14:50 → 4E 16:09
DX: K92.2 Gastrointestinal hemorrhage, unspecified (principal); J18.9 Pneumonia, unspecified organism; E87.2 Acidosis; J84.9 Interstitial pulmonary disease, unspecified; I82.503 Chronic embolism and thrombosis of unspecified deep veins of lower extremity, bilateral; R62.7 Adult failure to thrive; Z68.22 Body mass index [BMI] 22.0-22.9, adult; K52.9 Noninfective gastroenteritis and colitis, unspecified; Z86.19 Personal history of other infectious and parasitic diseases; F20.9 Schizophrenia, unspecified; J44.9 Chronic obstructive pulmonary disease, unspecified; Z86.718 Personal history of other venous thrombosis and embolism; I11.9 Hypertensive heart disease without heart failure; I49.1 Atrial premature depolarization
CPT/HCPCS: 36415; 71045; 71260; 74018; 80053; 81003; 82550; 82553; 82728; 83605; 83615; 83690; 84484; 85007; 85025; 85379; 86140; 87081; 87324; 93970; 96361; 96365; 96375; 99285; J7030; U0002

== ENCOUNTER 2020-05-28 10:52 | Inpatient (IN) | payer MEDICARE, MEDICAID ==
[2020-05-28] VITALS (7 sets, daily range): BP systolic 113–139; BP diastolic 56–91
[~2020-05-28] VITALS: Ht 180.3 cm; Wt 63.6 kg
[~2020-05-28 10:52] MED LIST changes: +ERGOCALCIFEROL1 GM PO; +HALDOL DEC50 MG/1 ML IM; +METOPROLOL SUCC50 MG ORAL; +MULTIVITAMINS1 EAC8 ORAL; +PROTONIX40 MG ORAL; +VALPROIC ACID250 MG PO; +VITAMIN C500 M1 ORAL; +VITAMIN D250 MCG PO; +XARELTO10 MG ORAL; +XARELTO20 MG ORAL; +ZYPREXA5 MG ORAL
[2020-05-28 11:30] LABS: BASOPHILS % (AUTO) 0.6 % (0.0-2.0); HEMATOCRIT 44.4 % (42.0-52.0); HEMOGLOBIN 15.3 G/DL (14.2-18.0); LYMPHOCYTES % (AUTO) 13.1 % (20.0-45.0); MEAN CORPUSCULAR VOLUME 93 FL (80-99); NEUTROPHILS % (AUTO) 81.3 % (45.0-75.0); PLATELET COUNT 353 K/UL (150-450); RED BLOOD COUNT 4.78 M/UL (4.70-6.10); RED CELL DISTRIBUTION WIDTH 14.2 % (11.6-14.8); WHITE BLOOD COUNT 17.7 K/UL (4.8-10.8)
[2020-05-28] MEDS ORDERED: Vancomycin 750 MG in NS 275 ML IV ONE (11:30)
[2020-05-28] MEDS ORDERED: cefTRIAXone 2 GM in NS 110 ML IV ONE (11:30)
--- NOTE | 2020-05-28 11:41 | Emergency Room Report ---
History of Present Illness General Chief Complaint: Vomiting Source: Patient Present Illness HPI 85-year-old male with past medical history of dementia, hypertension, COPD, schizophrenia, gastroenteritis, paroxysmal atrial ectopy, chronic bilateral lower extremity DVT brought in by ambulance from shelter facility for evaluation of coffee-ground emesis x2 prior to arrival. Patient was noted to have hypoxia therefore shelter facility staff called 911 to bring patient to the emergency department. He had a similar hospitalization at the beginning of May. He was discharged on the of the month. History is limited secondary to patient's clinical condition and dementia The patient's symptoms were acute onset, severity was moderate, duration since 1 hour. Quality: Coffee-ground Past medical history: dementia, hypertension, COPD, schizophrenia, gastroenteritis, paroxysmal atrial ectopy, chronic bilateral lower extremity DVT Past surgical history: Denies Smoking: Denies Alcohol use: Denies Drug use: Denies Review of systems: CONST: No fevers or chills, No night sweats PULMONARY: ++cough, ++ shortness of breath CARDIAC: No chest pain, No palpitations GI: ++ vomiting, No diarrhea , No melena_or_BRBPR : No dysuria, No hematuria, No discharge NEURO: No new_focal_weakness_or_numbness, No confusion, No vision changes 14 point Review of Systems is otherwise negative except per HPI Physical Exam: GENERAL: Awake, chronically ill-appearing, no acute distress. Hypoxic on room air EYES: Pupils reactive. Conjunctiva clear. ENT: External nose and ear appear normal. Oropharynx clear. Head atraumatic. NECK: No thyromegaly. No midline tenderness. LUNGS: Normal respiratory effort. Clear to auscultation. No stridor. No rales. No wheezes. CARDIAC: Regular rate and rhythm. Normal radial pulses bilaterally. No significant pedal edema. ABDOMEN: Soft, nontender, and nondistended. No rebound/guarding. No hepatosplenomegaly. MSK: Poor muscle tone, contractures with rigidity in extremities. Extremities without asymmetric deformity or swelling. NEUROLOGIC: Awake. Does not follow commands for motor and sensory exam. No truncal ataxia. Protecting airway, intact gag reflex. Withdraws to pain in extremities, groans and opens eyes to sternal rub. SKIN: Warm and dry. No cyanosis or urticaria present. - COORDINATION OF CARE Case was discussed with: Patient , Patient's Physician Any labs and imaging that were ordered were interpreted as part of the medical decision making: Medical Decision Making/Plan: Differential includes pneumonia, upper GI bleed, bronchitis, CHF, pulmonary edema, pulmonary embolism, pleural effusion among others. Symptoms are not likely to be pulmonary embolism, patient no significant PE risk factors, and has more likely alternate cause of symptoms. CXR shows groundglass opacities. Seems to be consistent with pneumonia, rather than CHF. Labs show leukocytosis of 17. Presentation not consistent with ischemia / ACS. EKG is nonischemic. LVH. Based on the patients PSI/PORT score, has high enough mortality risk that inpatient admission for IV antibiotics and clinical observation is most approp riate. Patient given Zosyn. Due to initial concern for upper GI bleed, Protonix was also administered. Blood cultures, lactate drawn. Lactate was not elevated, patient was not given 30 cc/kg IV fluids by bolus due to patient refusal. Empiric antibiotics were started. Patient will be admitted to the hospital for further care and evaluation. I spoke with Dr. Crandall, and reviewed the patients presentation, workup, results, and treatment. They will admit the patient for further care and evaluation, and assume care of the patient at this time. Allergies: Coded Allergies: PORK/PORCINE CONTAINING PRODUCTS (Verified Allergy, Mild, 08/03/11) COVID-19 Screening Contact w/high risk pt: No Experienced COVID-19 symptoms?: No COVID-19 Testing performed QUANTITATIVE MANAGER: Yes COVID-19 Screening: Negative COVID-19 COVID-19 Testing Source: 05/23/2020 Nursing Documentation-[facility] Hx Cardiac Problems: Yes - muscle weakness, anemia Hx Hypertension: Yes Hx COPD: Yes Hx Diabetes: Yes Hx Cancer: No Hx Gastrointestinal Problems: Yes - diverticulitis Hx Neurological Problems: Yes Hx Cerebrovascular Accident: Yes Hx Dementia: Yes Hx Seizures: Yes Hx Concentration Difficulty: Yes Hx Neurologic Surgery: No Hx Brain Shunt: No Physical Exam Vital Signs Date Time Temp Pulse Resp B/P (MAP) Pulse Ox O2 Delivery O2 Flow Rate FiO2 05/28/20 10:54 98.2 98 19 123/70 (87) 99 05/28/20 11:13 Nasal Cannula 2.0 Sp02 EP Interpretation: reviewed, abnormal Medical Decision Making Diagnostic Impression: Primary Impression: Gastritis Additional Impressions: Coffee ground emesis Pneumonia Esophagitis Hiatal hernia EKG Diagnostic Results JUAN JOSE Scribe Laura 12-lead EKG (interpreted by ) Time: 1131 Indication: Rhythm analysis Tracing visualized and Interpreted by me. Rhythm: Normal sinus rhythm Rate: 81 bpm QTc: 434 Morphology: No_significant_ST_elevations_or_depressions, No STEMI Impression: Normal_sinus_rhythm_without_significant_abnormality. LVH. Left anterior fascicular block. Left heart strain. No STEMI. Rhythm Strip Diag. Results Rhythm Strip Time: 11:40 Rate: 85 Rhythm: NSR, no PVC's, no ectopy Chest X-Ray Diagnostic Results Chest X-Ray Diagnostic Results : JUAN JOSE Sanchez Chest X-Ray: Views: 1 view(s) Indication: COUGH Findings: Normal heart size. Mediastinum normal. ++ Infiltrate. Impression: GGO, PNA The X-ray(s) were independently viewed and interpreted contemporaneously Electronically signed by , Richelle Brown, CT/MRI/US Diagnostic Results CT/MRI/US Diagnostic Results : Impression CT Chest Abdomen Pelvis wo Con CLINICAL INDICATION FINDINGS Chest: Peripheral reticular and air space opacities in the right upper lobe are unchanged. The right middle lobe is largely clear. Mosaic attenuation pattern occupying much of the right lower lobe as well as some posterior dependent atelectatic changes are again demonstrated, and overall appears similar. Peripheral reticular and hazy opacities in the left upper lobe appears slightly more extensive, and more generalized reticular and hazy opacities in the left lower lobe lik ewise appears slightly more extensive than on the prior study. No definite pleural effusions. The heart size is borderline enlarged. No pericardial effusion. No mediastinal or hilar mass or adenopathy. The esophageal wall is thickened. This is similar to the previous exam. Small sliding-type hiatal hernia is again noted. Unremarkable thyroid. No axillary or chest wall mass or adenopathy. The bones are unremarkable. Abdomen pelvis: Lack of enteric contrast limits assessment of the GI tract. Unremarkable appendix. No evidence of diverticulosis or diverticulitis. No small bowel distention. No free or loculated intraperitoneal gas or fluid is evident. Unremarkable stomach and duodenum. Again demonstrated are gallstones. No gallbladder wall thickening or pe richolecystic inflammation. Lack of IV contrast limits assessment of the solid organs. The liver demonstrates a cyst in segment 2. The pancreas, spleen, adrenals are unremarkable. Bilateral renal cysts are again demonstrated. No retroperitoneal or mesenteric mass or adenopathy. No pelvic mass or adenopathy. The bladder is empty and contains a Pisano catheter. Again demonstrated is mild prostatomegaly IMPRESSION: Pulmonary reticular and airspace opacities and mosaic attenuation pattern, as described, mostly similar to the previous exam of 05/26/2020 but slightly more extensive in the left upper lobe and left lower lobe. Appearance is nonspecific, could indicate chronic changes, or edema, or infectious/inflammatory etiologies Borderline cardiomegaly Esophageal wall thickening, also previously reported. Could indicate esophagitis. Correlate with clinical findings Small hiatal hernia Limited assessment of the GI tract, due to lack of enteric contrast administration Cholelithiasis Mild prostatomegaly Reevaluation Time: 12:34 Last Vital Signs Date Time Temp Pulse Resp B/P (MAP) Pulse Ox O2 Delivery O2 Flow Rate FiO2 05/28/20 11:13 98.2 85 19 128/75 95 Nasal Cannula 2.0 Status: improved Disposition: ADMITTED INPATIENT Admit Decision Time: 11:41 Condition: Stable Richelle Brown D.O. May 28, 2020 11:41
[2020-05-28 11:44] LABS: INR 1.1 (0.9-1.1)
[2020-05-28 11:47] LABS: APPEARANCE,URINE CLEAR; BILIRUBIN, URINE NEGATIVE (NEGATIVE); GLUCOSE, URINE (UA) NEGATIVE (NEGATIVE); KETONES,URINE NEGATIVE (NEGATIVE); LEUKOCYTE ESTERASE ,URINE NEGATIVE (NEGATIVE); NITRITE,URINE NEGATIVE (NEGATIVE); PH,URINE 5 (4.5-8.0); PROTEIN,URINE 1+ (NEGATIVE); UROBILINOGEN,URINE NORMAL MG/DL (0.0-1.0)
[2020-05-28 11:58] LABS: COLOR,URINE YELLOW
[2020-05-28] MEDS ORDERED: Piperacillin/Tazobactam 3.375 GM in NS 110 ML IVPB ONE (12:00)
[2020-05-28] MEDS ORDERED: Sodium Chloride 3,300 ML IVLG ONE (12:00)
[2020-05-28] MEDS ORDERED: BENZTROPINE MESY1 MG ORAL (12:23)
[2020-05-28] MEDS ORDERED: DOCUSATE SODIU100 MG ORAL (12:34)
[2020-05-28] MEDS ORDERED: FERROUS SU220 MG/53 PO (12:34)
[2020-05-28] MEDS ORDERED: MYLANTA MAXIMU355 ML PO (12:34)
[2020-05-28 12:35] LABS: ANION GAP 3 mmol/L (5-15); BLOOD UREA NITROGEN 44 mg/dL (7-18); CALCIUM 8.2 MG/DL (8.5-10.1); CARBON DIOXIDE 34 MMOL/L (21-32); CHLORIDE 105 MMOL/L (98-107); CREATININE 1.3 MG/DL (0.55-1.30); POTASSIUM 4.1 MMOL/L (3.5-5.1); SODIUM 142 MMOL/L (136-145)
[2020-05-28 12:39] LABS: ALANINE AMINOTRANSFERASE 15 U/L (12-78); ALBUMIN/GLOBULIN RATIO 0.7 (1.0-2.7); ALKALINE PHOSPHATASE 43 U/L (46-116); ASPARTATE AMINO TRANSFERASE 19 U/L (15-37); BILIRUBIN,TOTAL 0.6 MG/DL (0.2-1.0); CREATINE KINASE 102 U/L (26-308)
--- NOTE | 2020-05-28 14:20 | Diagnostic Imaging Report ---
CLINICAL INDICATION: Shortness of breath and vomiting TECHNIQUE: No oral contrast, per emergency room physician request. No IV contrast, per [facility] physician request. Spiral acquisitions obtained through the chest, abdomen, and pelvis. Multiplanar reconstructions were generated. Total dose length product 424 mGycm. CTDIvol(s) 6 mGy. Radiation dose was minimized using automated exposure control COMPARISON: 07/20/2019, also chest CT 05/15/2020 FINDINGS Chest: Peripheral reticular and air space opacities in the right upper lobe are unchanged. The right middle lobe is largely clear. Mosaic attenuation pattern occupying much of the right lower lobe as well as some posterior dependent atelectatic changes are again demonstrated, and overall appears similar. Peripheral reticular and hazy opacities in the left upper lobe appears slightly more extensive, and more generalized reticular and hazy opacities in the left lower lobe likewise appears slightly more extensive than on the prior study. No definite pleural effusions. The heart size is borderline enlarged. No pericardial effusion. No mediastinal or hilar mass or adenopathy. The esophageal wall is thickened. This is similar to the previous exam. Small sliding-type hiatal hernia is again noted. Unremarkable thyroid. No axillary or chest wall mass or adenopathy. The bones are unremarkable. Abdomen pelvis: Lack of enteric contrast limits assessment of the GI tract. Unremarkable appendix. No evidence of diverticulosis or diverticulitis. No small bowel distention. No free or loculated intraperitoneal gas or fluid is evident. Unremarkable stomach and duodenum. Again demonstrated are gallstones. No gallbladder wall thickening or pericholecystic inflammation. Lack of IV contrast limits assessment of the solid organs. The liver demonstrates a cyst in segment 2. The pancreas, spleen, adrenals are unremarkable. Bilateral renal cysts are again demonstrated. No retroperitoneal or mesenteric mass or adenopathy. No pelvic mass or adenopathy. The bladder is empty and contains a Pisano catheter. Again demonstrated is mild prostatomegaly IMPRESSION: Pulmonary reticular and airspace opacities and mosaic attenuation pattern, as described, mostly similar to the previous exam of 05/26/2020 but slightly more extensive in the left upper lobe and left lower lobe. Appearance is nonspecific, could indicate chronic changes, or edema, or infectious/inflammatory etiologies Borderline cardiomegaly Esophageal wall thickening, also previously reported. Could indicate esophagitis. Correlate with clinical findings Small hiatal hernia Limited assessment of the GI tract, due to lack of enteric contrast administration Cholelithiasis Mild prostatomegaly Incidental findings as noted, including Pisano catheter, bilateral renal cysts, hepatic cyst The CT scanner at [facility] is accredited by the [employer] and the scans are performed using protocols designed to limit radiation exposure to as low as reasonably achievable to attain images of sufficient resolution adequate for diagnostic evaluation.
--- NOTE | 2020-05-28 14:54 | Diagnostic Imaging Report ---
Indication: Cough Technique: One view of the chest Comparison: 05/15/2020; also subsequent chest CT scan Findings: There is an apparent right suprahilar irregular nodular opacity. No definite corresponding abnormality is seen on subsequent CT scan silhouette is probably just represents a confluence of vascular shadows. There are some linear opacities at the left lung base. There is generalized very mild interstitial prominence. There is rightward deviation of the trachea. CT scan demonstrates that this is due to true combination with a somewhat ectatic tortuous aorta and a thickened esophagus; no mediastinal mass is evident. Normal heart size Impression: Mild interstitial prominence, nonspecific, parenchymal disease better demonstrated on subsequent CT scan; please refer to that report Rightward tracheal deviation due to physiologic structures, no mass demonstrated on subsequent CT scan
[2020-05-28] MEDS ORDERED: Pantoprazole Inj IVP ONE (15:15)
[2020-05-28] MEDS ORDERED: Milk of Magnesia 30ml Ud ORAL PRN (19:30)
[2020-05-28] MEDS: Piperacillin/Tazobactam 3.375 GM in NS 110 ML IVPB SCH (22:10)
[2020-05-29] VITALS: BP 118/64
[2020-05-29] MEDS: Vancomycin 750 MG in NS 275 ML IVPB SCH ×2 (00:26→12:17)
--- NOTE | 2020-05-29 01:15 | Consultation ---
DATE OF CONSULTATION: 05/28/2020 CARDIOLOGY CONSULTATION CONSULTING PHYSICIAN: Shaw Abraham MD. REFERRING PHYSICIAN: Alexis Crandall MD. REASON FOR CONSULTATION: Hypoxia. HISTORY OF PRESENT ILLNESS: This is an 85-year-old male with advanced dementia with psychosis. He was hospitalized earlier this month with GI bleeding and bilateral chronic lower extremity DVTs. He was stabilized clinically. He did not have any diagnostic studies as he could not consent. He was not placed on anticoagulation since his DVTs were felt to be chronic. He apparently developed coffee-ground emesis, hypoxia and shortness of breath again today and was transferred to the emergency room. The episode lasted about an hour. No associated symptoms are documented other than noted above. PAST MEDICAL HISTORY: Cerebrovascular disease, dementia with psychosis, hypertension with hypertensive heart disease, schizophrenia, COPD, history of gastroenteritis, paroxysmal atrial arrhythmia, paroxysmal atrial ectopy, chronic bilateral lower extremity DVTs. SOCIAL HISTORY: Some records note prior alcohol and smoking history presently in his locked skilled facility. REVIEW OF SYSTEMS: As outlined above. Otherwise, cannot be reliably obtained. CURRENT MEDICATIONS: Reviewed and reconciled. ALLERGIES: Pork and porcine containing products. PHYSICAL EXAMINATION: GENERAL: Disheveled, ill appearing, no acute distress. HEENT: Conjunctival pallor. Oropharynx clear. NECK: Jugular venous pressure normal. Trachea slightly deviated. LUNGS: Coarse breath sounds. CARDIAC: Regular rhythm and rate. Normal S1, S2 with no appreciable murmur, but exam is limited. ABDOMEN: Soft and nontender with no guarding or masses. EXTREMITIES: With poor muscle tone, no edema, but increased rigidity is noted. NEUROLOGIC: Moves all extremities, but does not follow any commands. SKIN: Without any breakdown. DIAGNOSTIC AND LABORATORY DATA: CT scan revealed diffuse interstitial infiltrates. EKG sinus rhythm with nonspecific ST change. Urinalysis, no active sediment. White count 17.7, hemoglobin 15.3. Sodium 142, potassium 4.1, bicarb 34, BUN 44, creatinine 1.3, glucose 116. Albumin 3. IMPRESSION: 1. Healthcare-acquired pneumonia. 2. Chronic DVTs. 3. Leukocytosis. 4. Probable sepsis. 5. Rule out COVID-19. 6. Cerebrovascular disease with dementia and psychosis. 7. Hypovolemia and dehydration. 8. Acute on chronic kidney injury. 9. [id number] protein-calorie malnutrition. 10. Mildly increased risk for pulmonary embolic event, but no strong clinical indications at this time. 11. Recurring upper GI bleeding. PLAN: 1. Panculture, respiratory hygiene, antimicrobials, DVT prophylaxis. 2. Hold anti-platelet therapy, avoid anticoagulation. 3. Serial hemoglobin. 4. Proton-pump inhibitor. 5. Cautious hydration. 6. Conservative management. Shaw Abraham M.D. DR: ABILIO JOB#: [id number] CC:
[2020-05-29 04:00] VITALS: BP 117/67
[2020-05-29] MEDS: Piperacillin/Tazobactam 3.375 GM in NS 110 ML IVPB SCH ×3 (05:53→21:57)
[2020-05-29 08:00] VITALS: BP 125/70
[2020-05-29] MEDS ORDERED: Albuterol/Ipratropium 3ml neb HHN PRN (08:00)
--- NOTE | 2020-05-29 08:11 | Pulmonology Progress Note ---
Subjective ROS Limited/Unobtainable: Yes HEENT: Repors: other Allergies: Coded Allergies: PORK/PORCINE CONTAINING PRODUCTS (Verified Allergy, Mild, 08/03/11) Objective Last 24 Hour Vital Signs Date Time Temp Pulse Resp B/P (MAP) Pulse Ox O2 Delivery O2 Flow Rate FiO2 05/29/20 04:00 97.2 66 20 117/67 (84) 97 05/29/20 00:00 98.0 68 20 118/64 (82) 99 05/28/20 23:42 Room Air 05/28/20 20:50 98.4 73 20 131/63 (85) 92 05/28/20 20:00 98.5 69 14 114/74 100 Nasal Cannula 2.0 05/28/20 19:26 98.1 67 14 113/64 100 Nasal Cannula 2.0 05/28/20 18:40 98.6 81 15 136/67 94 Nasal Cannula 2.0 05/28/20 16:30 98.8 78 18 139/56 100 Nasal Cannula 2.0 05/28/20 14:26 98.8 74 13 130/91 100 Nasal Cannula 2.0 05/28/20 12:23 98.8 73 22 132/77 100 Nasal Cannula 2.0 05/28/20 11:13 98.2 85 19 128/75 95 Nasal Cannula 2.0 05/28/20 11:13 98 19 Nasal Cannula 2.0 05/28/20 10:54 98.2 98 19 123/70 (87) 99 Intake and Output 05/28/20 05/29/20 19:00 07:00 Intake Total 110 ml 620 ml Output Total 0 ml 300 ml Balance 110 ml 320 ml Intake Oral 120 ml IV Total 110 ml 500 ml Output Urine Total 0 ml 300 ml Microbiology Date/Time Source Procedure Growth Status 05/28/20 11:33 Nasopharynx SARS-CoV-2 RdRp Gene Assay - Final Complete Laboratory Tests 05/28/20 11:10: White Blood Count 17.7H, Red Blood Count 4.78, Hemoglobin 15.3, Hematocrit 44.4, Mean Corpuscular Volume 93, Mean Corpuscular Hemoglobin 32.1H, Mean Corpuscular Hemoglobin Concent 34.5, Red Cell Distribution Width 14.2, Platelet Count 353, Mean Platelet Volume 5.4L, Neutrophils (%) (Auto) 81.3H, Lymphocytes (%) (Auto) 13.1L, Monocytes (%) (Auto) 5.0, Eosinophils (%) (Auto) 0.0, Basophils (%) (Auto) 0.6, Prothrombin Time 12.0H, Prothromb Time International Ratio 1.1, Activated Partial Thromboplast Time 23, Lactic Acid Level 1.20, Troponin I 0.005 05/28/20 11:38: Urine Color Yellow, Urine Appearance Clear, Urine pH 5, Urine Specific Woodson 1.025, Urine Protein 1+H, Urine Glucose (UA) Negative, Urine Ketones Negative, Urine Blood Negative, Urine Nitrite Negative, Urine Bilirubin Negative, Urine Urobilinogen Normal, Urine Leukocyte Esterase Negative, Urine RBC 0, Urine WBC 0-2, Urine Squamous Epithelial Cells Few, Urine Bacteria Few, Urine Mucus FewH 05/28/20 11:55: Sodium Level 142, Potassium Level 4.1, Chloride Level 105, Carbon Dioxide Level 34H, Anion Gap 3L, Blood Urea Nitrogen 44H, Creatinine 1.3, Estimat Glomerular Filtration Rate 52.3, Glucose Level 116H, Calcium Level 8.2L, Total Bilirubin 0.6, Aspartate Amino Transf (AST/SGOT) 19, Alanine Aminotransferase (ALT/SGPT) 15, Alkaline Phosphatase 43L, Total Creatine Kinase 102, C-Reactive Protein, Quantitative 3.4H, Total Protein 7.6, Albumin 3.0L, Globulin 4.6, Albumin /Globulin Ratio 0.7L, Lipase 122 Current Medications Medications (Trade) Dose Ordered Sig/Ji Route PRN Reason Start Time Stop Time Status Last Admin Dose Admin Acetaminophen (Tylenol) 650 mg Q4H PRN ORAL FEVER 05/28/20 19:30 06/27/20 19:29 Acetaminophen (Tylenol) 650 mg Q4H PRN ORAL MILD PAIN 05/28/20 19:30 06/27/20 19:29 Ascorbic Acid (Vitamin C) 500 mg DAILY ORAL 05/29/20 09:00 06/28/20 08:59 Benztropine Mesylate (Cogentin) 1 mg DAILY ORAL 05/29/20 09:00 06/28/20 08:59 Docusate Sodium (Colace) 100 mg TWICE A DAY ORAL 05/29/20 09:00 06/28/20 08:59 Heparin Sodium (Porcine) (Heparin 5000 units/ml) 5,000 units EVERY 12 HOURS SUBQ 05/29/20 09:00 07/13/20 08:59 Magnesium Hydroxide (Mom) 30 ml DAILYPRN PRN ORAL Constipation 05/28/20 19:30 06/27/20 19:29 Metoprolol Succinate (Toprol XL) 50 mg DAILY ORAL 05/29/20 09:00 08/27/20 08:59 Multivitamins Therapeutic (Therapeutic Multivitamin) 1 ea DAILY ORAL 05/29/20 09:00 06/28/20 08:59 Olanzapine (ZyPREXA) 5 mg DAILY ORAL 05/29/20 09:00 07/13/20 08:59 Pantoprazole (Protonix) 40 mg DAILY ORAL 05/29/20 09:00 06/28/20 08:59 Piperacillin Sod/ Tazobactam Sod 3.375 gm/Sodium Chloride 110 ml @ 27.5 mls/hr EVERY 8 HOURS IVPB 05/28/20 22:00 06/02/20 21:59 05/29/20 05:53 Sodium Chloride 1,000 ml @ 100 mls/hr Q10H IV 05/28/20 23:30 06/27/20 23:29 05/28/20 00:26 Valproic Acid (Depakene) 500 mg Q12HR ORAL 05/29/20 09:00 06/28/20 08:59 Vancomycin HCl (Vanco pharmacy to dose) 1 ea DAILY PRN MISC Per rx protocol 05/28/20 19:30 06/27/20 19:29 Vancomycin HCl 750 mg/Sodium Chloride 275 ml @ 183.333 mls/hr Q12HR@0100,1300 IVPB 05/29/20 01:00 06/03/20 00:59 05/29/20 00:26 Assessment/Plan Assessment/Plan Pulmonary Consultation HPI: Patient is an 85-year-old man with past history of advanced dementia, psychosis, GI bleeding, bilateral chronic lower extremity DVT -not on anticoagulation. Admitted with uper GI bleed, developed coffee-ground emesis, hypoxia and shortness of breath prior to admission.Noted to have Pulmonary Infiltrates on CT Chest/abdomen Past Medical History: Cerebrovascular disease, dementia with psychosis, hypertension, hypertensive heart disease, schizophrenia, COPD, history of gastroenteritis, paroxysmal atrial arrhythmia, paroxysmal atrial ectopy, chronic bilateral lower extremity DVTs. Social History: Prior alcohol and smoking history per chart review presently in his locked skilled facility. Family History: [place] Review of Systems: NA Medications: Noted Allergies: Pork and porcine containing products. Objective: Vital signs noted PE: GENERAL: Chronically ill appearing, no acute distress. HEENT: Conjunctival pallor. Oropharynx clear. NECK: Jugular venous pressure normal. No LN LUNGS: Coarse breath sounds bilaterally. CARDIAC: Regular rhythm and rate. Normal S1, S2 ABDOMEN: SNTND. EXTREMITIES: No edema, but increased rigidity is noted. Skin intact NEUROLOGIC: Moves all extremities, but does not follow any commands. No seizures Laboratory:Noted Imaging: CT scan revealed diffuse interstitial infiltrates with reticular change and ground glass infiltrates. EKG sinus rhythm with nonspecific ST change. Impression: Recurring upper GI bleeding. Healthcare-acquired pneumonia, possible sepsis COPD Hypovolemia and dehydration. Acute on chronic kidney injury. Dementia,Psychosis Chronic DVTs. COVID-19 negative Hypertension Cerebrovascular disease Protein-calorie malnutrition. Plan: IV AB O2 PRN HHN IVF PPX Await cultures Monitor labs TFN PRN, on PPI, AC held Shaw Diego MD May 29, 2020 08:11
[2020-05-29] MEDS: Heparin 5000 units/ml inj SUBQ SCH ×2 (08:23→21:00)
[2020-05-29] MEDS: Multivitamin w/Minerals tab ORAL SCH (08:24)
[2020-05-29] MEDS: Metoprolol Succinate XL 50mg tab ORAL SCH (08:24)
[2020-05-29] MEDS: Docusate 100mg cap ORAL SCH ×2 (08:25→18:00)
[2020-05-29] MEDS: Ascorbic Acid 500mg tab ORAL SCH (08:25)
[2020-05-29] MEDS: Benztropine 1mg tab ORAL SCH (08:25)
--- NOTE | 2020-05-29 09:00 | History and Physical Report ---
DATE OF ADMISSION: 05/28/2020 CHIEF COMPLAINT: Pneumonia. HISTORY OF PRESENT ILLNESS: The patient is an 85-year-old male, well known to me. He has a history of severe schizophrenia, history of chronic DVT, GI bleed, hypertension, and COVID-19 pneumonia, who presented with complaints of poor p.o. intake, lethargy and confusion. The patient is a poor historian and is unable to provide any history. On evaluation in the emergency room, he had a white count of 17,000. He had x-ray evidence of pneumonia. His rapid COVID test was negative. The patient has been pancultured, started on broad-spectrum IV antibiotics. He is now admitted for further evaluation and care. PAST MEDICAL HISTORY: As above. PAST SURGICAL HISTORY: None. CURRENT MEDICATIONS: Reconciled and reviewed. ALLERGIES: Include pork. FAMILY HISTORY: Noncontributory. SOCIAL HISTORY: There is no known history of tobacco, ethanol, or drugs. REVIEW OF SYSTEMS: Unobtainable as the patient is confused. PHYSICAL EXAMINATION: VITAL SIGNS: Temperature 98, pulse 66, respirations 20, and blood pressure 117/67. GENERAL: The patient is well developed, in no apparent distress. HEART: Regular rate and rhythm. LUNGS: Clear. ABDOMEN: Soft, nontender, and nondistended. EXTREMITIES: Without clubbing, cyanosis, or edema. LABORATORY DATA: White count 17,000. Chest x-ray shows bilateral infiltrates, mostly in the left upper lobe. ASSESSMENT: This is an 85-year-old male with a history of COPD, hypertension, prior history of COVID-19 pneumonia, and chronic DVT, admitted with complaints of dehydration and altered mentation secondary to sepsis from pneumonia. PLAN: 1. Broad spectrum IV antibiotics. 2. ID consultation. 3. Cardiology to assist with blood pressure management. 4. Continue supplemental oxygen as needed. 5. Check a swallow evaluation. 6. Psychiatric treatment as needed. Alexis Crandall M.D. DR: JERILYN JOB#: [id number] CC:
[2020-05-29 12:00] VITALS: BP 130/69
--- NOTE | 2020-05-29 15:30 | Consultation ---
DATE OF CONSULTATION: 05/29/2020 INFECTIOUS DISEASES CONSULTATION CONSULTING PHYSICIAN: Micheal Drake MD REFERRING PHYSICIAN: Alexis Crandall MD REASON FOR CONSULTATION: COVID-19 pneumonia. HISTORY OF PRESENTING ILLNESS: This is an 85-year-old gentleman with history of schizophrenia, hypertension, GI bleeding, DVT, COVID-19 pneumonia who comes in with poor p.o. intake, lethargy, and confusion. He was found to have a leukocytosis. He was also found to have a pneumonia and an Infectious Diseases consultation has been obtained for antibiotics. PAST MEDICAL HISTORY: 1. History of hypertension. 2. GI bleeding. 3. Chronic DVT. 4. Schizophrenia. SOCIAL HISTORY: Unknown. FAMILY HISTORY: Unknown. REVIEW OF SYSTEMS: Unable to obtain currently. MEDICATIONS: As an inpatient, he is on subcutaneous heparin, valproic acid, Protonix, Zyprexa, multivitamin, metoprolol, docusate, benztropine, ascorbic acid, albuterol, ipratropium, IV vancomycin, Zosyn, milk of magnesia Tylenol. ALLERGIES: To pork noted. PHYSICAL EXAMINATION: VITAL SIGNS: Temperature of 98, T-max of 98.8, pulse of 66, respiratory rate 18, blood pressure 130/69, O2 saturation of 97% on 2 liters of oxygen. Examination deferred due to COVID-19. LABORATORY DATA: UA showing 0 to 2 white cells. White count of 17.7, hemoglobin 15.3, hematocrit 44.4, MCV 93, platelet count of 353 with neutrophils of 81%. Sodium 142, potassium 4.1, chloride 105, bicarb 34, BUN 44, creatinine 1.3, glucose 116, calcium 8.2. Total bilirubin 0.6, AST 19, ALT 15, alkaline phosphatase 43. CK of 102. C-reactive protein 3.4. Total protein 7.6. Albumin 3. Lipase of 122. COVID-19 rapid test is negative. Chest x-ray is showing mild interstitial prominence. CT chest, abdomen, and pelvis showing pulmonary reticular and airspace opacities. Esophageal wall thickening, could indicate esophagitis, small hiatal hernia, cholelithiasis, mild prostatomegaly. ASSESSMENT: This is an 85-year-old gentleman with history of schizophrenia, GI bleeding, hypertension, chronic DVT who was found to have. 1. COVID-19 pneumonia. 2. Leukocytosis. 3. Schizophrenia. 4. Hypertension. 5. GI bleeding. PLAN: 1. Continue IV vancomycin and Zosyn for now. 2. We will start the patient on dexamethasone. 3. We will follow up cultures. 4. We will follow up patient clinically. I would like to thank, Dr. Crandall, for this consultation. Micheal Drake M.D. DR: GAGANDEEP JOB#: [id number] CC: Alexis Crandall M.D.
[2020-05-29 16:00] VITALS: BP 122/70
[2020-05-29] MEDS ORDERED: 1/2 NS 1000ml IV ONE (17:22)
[2020-05-29] MEDS ORDERED: Tubing IV Secondary IV ONE (17:22)
[2020-05-29] MEDS ORDERED: NS 275ml ONE (17:22)
[2020-05-29 20:00] VITALS: BP 101/55
--- NOTE | 2020-05-29 21:30 | Pulmonology Progress Note ---
Subjective ROS Limited/Unobtainable: Yes HEENT: Repors: other Allergies: Coded Allergies: PORK/PORCINE CONTAINING PRODUCTS (Verified Allergy, Mild, 08/03/11) Objective Last 24 Hour Vital Signs Date Time Temp Pulse Resp B/P (MAP) Pulse Ox O2 Delivery O2 Flow Rate FiO2 05/29/20 20:00 97.3 63 20 101/55 (70) 100 05/29/20 16:00 97.0 68 20 122/70 (87) 99 05/29/20 12:00 98.0 66 18 130/69 (89) 97 05/29/20 10:54 Nasal Cannula 2.0 05/29/20 08:24 72 120/70 05/29/20 08:00 96.9 70 19 125/70 (88) 98 05/29/20 04:00 97.2 66 20 117/67 (84) 97 05/29/20 00:00 98.0 68 20 118/64 (82) 99 05/28/20 23:42 Room Air Intake and Output 05/28/20 05/29/20 19:00 07:00 Intake Total 110 ml 620 ml Output Total 0 ml 300 ml Balance 110 ml 320 ml Intake Oral 120 ml IV Total 110 ml 500 ml Output Urine Total 0 ml 300 ml Microbiology Date/Time Source Procedure Growth Status 05/28/20 11:33 Nasopharynx SARS-CoV-2 RdRp Gene Assay - Final Complete 05/28/20 11:10 Blood Blood Culture - Preliminary NO GROWTH AFTER 24 HOURS Resulted 05/28/20 10:50 Blood Blood Culture - Preliminary NO GROWTH AFTER 24 HOURS Resulted Current Medications Medications (Trade) Dose Ordered Sig/Ji Route PRN Reason Start Time Stop Time Status Last Admin Dose Admin Acetaminophen (Tylenol) 650 mg Q4H PRN ORAL FEVER 05/28/20 19:30 06/27/20 19:29 Acetaminophen (Tylenol) 650 mg Q4H PRN ORAL MILD PAIN 05/28/20 19:30 06/27/20 19:29 Albuterol/ Ipratropium (Albuterol/ Ipratropium) 3 ml Q4H PRN HHN Shortness of Breath 05/29/20 08:00 06/03/20 07:59 Ascorbic Acid (Vitamin C) 500 mg DAILY ORAL 05/29/20 09:00 06/28/20 08:59 05/29/20 08:25 Benztropine Mesylate (Cogentin) 1 mg DAILY ORAL 05/29/20 09:00 06/28/20 08:59 05/29/20 08:25 Dexamethasone (Decadron) 6 mg DAILY ORAL 05/29/20 13:00 06/07/20 09:01 Docusate Sodium (Colace) 100 mg TWICE A DAY ORAL 05/29/20 09:00 06/28/20 08:59 05/29/20 08:25 Heparin Sodium (Porcine) (Heparin 5000 units/ml) 5,000 units EVERY 12 HOURS SUBQ 05/29/20 09:00 07/13/20 08:59 05/29/20 08:23 Magnesium Hydroxide (Mom) 30 ml DAILYPRN PRN ORAL Constipation 05/28/20 19:30 06/27/20 19:29 Metoprolol Succinate (Toprol XL) 50 mg DAILY ORAL 05/29/20 09:00 08/27/20 08:59 05/29/20 08:24 Multivitamins Therapeutic (Therapeutic Multivitamin) 1 ea DAILY ORAL 05/29/20 09:00 06/28/20 08:59 05/29/20 08:24 Olanzapine (ZyPREXA) 5 mg DAILY ORAL 05/29/20 09:00 07/13/20 08:59 05/29/20 08:23 Pantoprazole (Protonix) 40 mg DAILY ORAL 05/29/20 09:00 06/28/20 08:59 05/29/20 08:25 Piperacillin Sod/ Tazobactam Sod 3.375 gm/Sodium Chloride 110 ml @ 27.5 mls/hr EVERY 8 HOURS IVPB 05/28/20 22:00 06/02/20 21:59 05/29/20 13:16 Sodium Chloride 1,000 ml @ 100 mls/hr Q10H IV 05/28/20 23:30 06/27/20 23:29 05/29/20 18:50 Valproic Acid (Depakene) 500 mg Q12HR ORAL 05/29/20 09:00 06/28/20 08:59 05/29/20 08:25 Vancomycin HCl (Vanco pharmacy to dose) 1 ea DAILY PRN MISC Per rx protocol 05/28/20 19:30 06/27/20 19:29 Vancomycin HCl 750 mg/Sodium Chloride 275 ml @ 183.333 mls/hr Q12HR@0100,1300 IVPB 05/29/20 01:00 06/03/20 00:59 05/29/20 12:17 Assessment/Plan Assessment/Plan Pulmonary Progress Note HPI: Patient is an 85-year-old man with past history of advanced dementia, psychosis, GI bleeding, bilateral chronic lower extremity DVT -not on anticoagulation. Admitted with uper GI bleed, developed coffee-ground emesis, hypoxia and shortness of breath prior to admission.Noted to have Pulmonary Infiltrates on CT Chest/abdomen Past Medical History: Cerebrovascular disease, dementia with psychosis, hypertension, hypertensive heart disease, schizophrenia, COPD, history of gastroenteritis, paroxysmal atrial arrhythmia, paroxysmal atrial ectopy, chronic bilateral lower extremity DVTs. Stable on NCO2 Objective: Vital signs noted PE: GENERAL: Chronically ill appearing, no acute distress. HEENT: Conjunctival pallor. Oropharynx clear. NECK: Jugular venous pressure normal. No LN LUNGS: Coarse breath sounds bilaterally. CARDIAC: Regular rhythm and rate. Normal S1, S2 ABDOMEN: SNTND. EXTREMITIES: No edema, but increased rigidity is noted. Skin intact NEUROLOGIC: Moves all extremities, but does not follow any commands. No seizures Laboratory:Noted Imaging: CT scan revealed diffuse interstitial infiltrates with reticular change and ground glass infiltrates. EKG sinus rhythm with nonspecific ST change. Impression: Recurring upper GI bleeding. Healthcare-acquired pneumonia, possible sepsis COPD Hypovolemia and dehydration. Acute on chronic kidney injury. Dementia,Psychosis Chronic DVTs. COVID-19 negative Hypertension Cerebrovascular disease Protein-calorie malnutrition. Plan: IV AB O2 PRN HHN IVF PPX Await cultures Monitor labs TFN PRN, on PPI, AC held Shaw Diego MD May 29, 2020 21:30
[2020-05-30] VITALS: BP 98/65
--- NOTE | 2020-05-30 00:53 | Cardiology Progress Note ---
Subjective DATE OF SERVICE: May 29, 2020 Non interactive No respiratory distress Objective Last 24 Hour Vital Signs Date Time Temp Pulse Resp B/P (MAP) Pulse Ox O2 Delivery O2 Flow Rate FiO2 05/29/20 20:00 97.3 63 20 101/55 (70) 100 05/29/20 16:00 97.0 68 20 122/70 (87) 99 05/29/20 12:00 98.0 66 18 130/69 (89) 97 05/29/20 10:54 Nasal Cannula 2.0 05/29/20 08:24 72 120/70 05/29/20 08:00 96.9 70 19 125/70 (88) 98 05/29/20 04:00 97.2 66 20 117/67 (84) 97 HEENT: normal ENT inspection LUNGS: bilateral rhonchi CARDIAC: normal rate, regular rhythm, normal S1 and S2 ABDOMEN: normal bowel sounds, non tender, no organomegaly EXTREMITIES: non-tender, No edema Microbiology Date/Time Source Procedure Growth Status 05/28/20 11:38 Straight Cath Urine Culture - Preliminary NO GROWTH Resulted 05/28/20 11:33 Nasopharynx SARS-CoV-2 RdRp Gene Assay - Final Complete 05/28/20 11:10 Blood Blood Culture - Preliminary NO GROWTH AFTER 24 HOURS Resulted 05/28/20 10:50 Blood Blood Culture - Preliminary NO GROWTH AFTER 24 HOURS Resulted Assessment/Plan Assessment/Plan HC associated PNA Sepsis Dehydration/hypernatremia Dementia with psychosis Chronic DVT Low clinical suspicion for pulmonary emboic event Hx Covid 19 PNA Hx GI bleed Abx Hypotonic IVF Resp Rx DVT prophyl Follow up labs IV steroids Shaw Abraham MD May 30, 2020 00:53
[2020-05-30] MEDS: Vancomycin 750 MG in NS 275 ML IVPB SCH ×2 (01:30→12:24)
[2020-05-30 04:00] VITALS: BP 111/56
[2020-05-30] MEDS: Piperacillin/Tazobactam 3.375 GM in NS 110 ML IVPB SCH ×3 (05:48→21:45)
[2020-05-30 08:00] VITALS: BP 107/56
[2020-05-30] MEDS: Heparin 5000 units/ml inj SUBQ SCH ×2 (08:46→21:00)
[2020-05-30] MEDS: Benztropine 1mg tab ORAL SCH (09:00)
[2020-05-30] MEDS: Multivitamin w/Minerals tab ORAL SCH (09:00)
[2020-05-30] MEDS: Ascorbic Acid 500mg tab ORAL SCH (09:00)
[2020-05-30] MEDS: Docusate 100mg cap ORAL SCH ×2 (09:00→17:34)
[2020-05-30] MEDS: Metoprolol Succinate XL 50mg tab ORAL SCH (09:00)
[2020-05-30] MEDS ORDERED: MULTI-DELYN237 ML GT (11:22)
[2020-05-30 12:00] VITALS: BP 115/63
--- NOTE | 2020-05-30 13:42 | General Progress Note ---
Subjective ROS Limited/Unobtainable: No Constitutional: Reports: malaise, weakness HEENT: Reports: no symptoms Cardiovascular: Reports: no symptoms Respiratory: Reports: cough Gastrointestinal/Abdominal: Reports: no symptoms Genitourinary: Reports: no symptoms Neurologic/Psychiatric: Reports: anxiety, emotional problems, pre-existing deficit Endocrine: Reports: no symptoms Hematologic/Lymphatic: Reports: no symptoms Allergies: Coded Allergies: PORK/PORCINE CONTAINING PRODUCTS (Verified Allergy, Mild, 08/03/11) All Systems: reviewed and negative except above Subjective uncooperative with care. on o2. no fever or chills. no sob. spits out most meds Objective Last 24 Hour Vital Signs Date Time Temp Pulse Resp B/P (MAP) Pulse Ox O2 Delivery O2 Flow Rate FiO2 05/30/20 12:00 97.3 68 19 115/63 (80) 99 05/30/20 09:00 Nasal Cannula 2.0 05/30/20 08:00 98.4 59 17 107/56 (73) 100 05/30/20 04:00 96.6 62 16 111/56 (74) 98 05/30/20 00:00 97.2 58 20 98/65 (76) 100 05/29/20 21:00 Nasal Cannula 2.0 05/29/20 20:00 97.3 63 20 101/55 (70) 100 05/29/20 16:00 97.0 68 20 122/70 (87) 99 Intake and Output 05/29/20 05/30/20 19:00 07:00 Intake Total 200 ml 1612.500 ml Output Total 250 ml 300 ml Balance -50 ml 1312.500 ml Intake Oral 200 ml IV Total 1612.500 ml Output Urine Total 250 ml 300 ml # Bowel Movements 1 1 Height (Feet): 5 Height (Inches): 11.00 Weight (Pounds): 240 General Appearance: WD/WN, confused, thin EENT: normal ENT inspection Neck: non-tender, normal alignment Cardiovascular: normal peripheral pulses, normal rate Respiratory/Chest: chest wall non-tender, lungs clear, normal breath sounds Edema: no edema noted Leg (L), no edema noted Leg (R) Neurologic: poising inspector II-XII grossly normal, alert, responsive Assessment/Plan Problem List: (1) PNA (pneumonia) ICD Codes: J18.9 - Pneumonia, unspecified organism SNOMED: 873301899 (2) Sepsis ICD Codes: A41.9 - Sepsis, unspecified organism SNOMED: 14769592 (3) Coffee ground emesis ICD Codes: K92.0 - Hematemesis SNOMED: 05018186 Status: stable Assessment/Plan: stable iv abx monitor cxr follow up cultures psych rx dvt/stress ulcer prophylaxis Alexis Crandall MD May 30, 2020 13:42
[2020-05-30 16:00] VITALS: BP 93/52
--- NOTE | 2020-05-30 16:23 | Infectious Diseases Prog Note ---
Assessment/Plan Assessment/Plan A: 1. Pneumonia.COVID19 test negative 2. Leukocytosis. 3. Schizophrenia. 4. Hypertension. 5. GI bleeding. PLAN: 1. Continue Zosyn 2. Discontinue Dexamethasone & IV vancomycin Subjective ROS Limited/Unobtainable: Yes Constitutional: Reports: no symptoms Respiratory: Reports: dry cough Psychiatric: Reports: other - refusese medications & labs Allergies: Coded Allergies: PORK/PORCINE CONTAINING PRODUCTS (Verified Allergy, Mild, 08/03/11) Objective Last 24 Hour Vital Signs Date Time Temp Pulse Resp B/P (MAP) Pulse Ox O2 Delivery O2 Flow Rate FiO2 05/30/20 12:00 97.3 68 19 115/63 (80) 99 05/30/20 09:00 Nasal Cannula 2.0 05/30/20 08:00 98.4 59 17 107/56 (73) 100 05/30/20 04:00 96.6 62 16 111/56 (74) 98 05/30/20 00:00 97.2 58 20 98/65 (76) 100 05/29/20 21:00 Nasal Cannula 2.0 05/29/20 20:00 97.3 63 20 101/55 (70) 100 Height (Feet): 5 Height (Inches): 11.00 Weight (Pounds): 240 General Appearance: no acute distress HEENT: mucous membranes moist Respiratory/Chest: lungs clear, other - oxygen by nasal cannula Abdomen: soft, non tender Extremities: no edema Neurologic/Psychiatric: alert Microbiology Date/Time Source Procedure Growth Status 05/28/20 11:38 Straight Cath Urine Culture - Preliminary NO GROWTH Resulted 05/28/20 11:33 Nasopharynx SARS-CoV-2 RdRp Gene Assay - Final Complete 05/28/20 11:10 Blood Blood Culture - Preliminary NO GROWTH AFTER 48 HOURS Resulted 05/28/20 10:50 Blood Blood Culture - Preliminary NO GROWTH AFTER 48 HOURS Resulted Current Medications Medications (Trade) Dose Ordered Sig/Ji Route PRN Reason Start Time Stop Time Status Last Admin Dose Admin Acetaminophen (Tylenol) 650 mg Q4H PRN ORAL FEVER 05/28/20 19:30 06/27/20 19:29 Acetaminophen (Tylenol) 650 mg Q4H PRN ORAL MILD PAIN 05/28/20 19:30 06/27/20 19:29 Albuterol/ Ipratropium (Albuterol/ Ipratropium) 3 ml Q4H PRN HHN Shortness of Breath 05/29/20 08:00 06/03/20 07:59 Ascorbic Acid (Vitamin C) 500 mg DAILY ORAL 05/29/20 09:00 06/28/20 08:59 05/29/20 08:25 Benztropine Mesylate (Cogentin) 1 mg DAILY ORAL 05/29/20 09:00 06/28/20 08:59 05/29/20 08:25 Dexamethasone (Decadron) 6 mg DAILY ORAL 05/29/20 13:00 06/07/20 09:01 Docusate Sodium (Colace) 100 mg TWICE A DAY ORAL 05/29/20 09:00 06/28/20 08:59 05/29/20 08:25 Heparin Sodium (Porcine) (Heparin 5000 units/ml) 5,000 units EVERY 12 HOURS SUBQ 05/29/20 09:00 07/13/20 08:59 05/30/20 08:46 Magnesium Hydroxide (Mom) 30 ml DAILYPRN PRN ORAL Constipation 05/28/20 19:30 06/27/20 19:29 Metoprolol Succinate (Toprol XL) 50 mg DAILY ORAL 05/29/20 09:00 08/27/20 08:59 05/29/20 08:24 Multivitamins Therapeutic (Therapeutic Multivitamin) 1 ea DAILY ORAL 05/29/20 09:00 06/28/20 08:59 05/29/20 08:24 Olanzapine (ZyPREXA) 5 mg DAILY ORAL 05/29/20 09:00 07/13/20 08:59 05/29/20 08:23 Pantoprazole (Protonix) 40 mg DAILY ORAL 05/29/20 09:00 06/28/20 08:59 05/29/20 08:25 Piperacillin Sod/ Tazobactam Sod 3.375 gm/Sodium Chloride 110 ml @ 27.5 mls/hr EVERY 8 HOURS IVPB 05/28/20 22:00 06/02/20 21:59 05/30/20 14:25 Sodium Chloride 1,000 ml @ 100 mls/hr Q10H IV 05/28/20 23:30 06/27/20 23:29 05/30/20 15:30 Valproic Acid (Depakene) 500 mg Q12HR ORAL 05/29/20 09:00 06/28/20 08:59 05/30/20 08:46 Vancomycin HCl (Vanco pharmacy to dose) 1 ea DAILY PRN MISC Per rx protocol 05/28/20 19:30 06/27/20 19:29 Vancomycin HCl 750 mg/Sodium Chloride 275 ml @ 183.333 mls/hr Q12HR@0100,1300 IVPB 05/29/20 01:00 06/03/20 00:59 05/30/20 12:24 Scott Jack MD May 30, 2020 16:23
--- NOTE | 2020-05-30 17:54 | Cardiology Progress Note ---
Subjective DATE OF SERVICE: May 30, 2020 Uncooperative Spits out meds Refused labs No respiratory distress Objective Last 24 Hour Vital Signs Date Time Temp Pulse Resp B/P (MAP) Pulse Ox O2 Delivery O2 Flow Rate FiO2 05/30/20 16:00 98.2 58 17 93/52 (66) 98 05/30/20 12:00 97.3 68 19 115/63 (80) 99 05/30/20 09:00 Nasal Cannula 2.0 05/30/20 08:00 98.4 59 17 107/56 (73) 100 05/30/20 04:00 96.6 62 16 111/56 (74) 98 05/30/20 00:00 97.2 58 20 98/65 (76) 100 05/29/20 21:00 Nasal Cannula 2.0 05/29/20 20:00 97.3 63 20 101/55 (70) 100 HEENT: normal ENT inspection LUNGS: bilateral rhonchi CARDIAC: normal rate, regular rhythm, normal S1 and S2 ABDOMEN: normal bowel sounds, non tender, no organomegaly EXTREMITIES: non-tender, No edema Microbiology Date/Time Source Procedure Growth Status 05/28/20 11:38 Straight Cath Urine Culture - Final NO GROWTH AFTER 48 HOURS Complete 05/28/20 11:33 Nasopharynx SARS-CoV-2 RdRp Gene Assay - Final Complete 05/28/20 11:10 Blood Blood Culture - Preliminary NO GROWTH AFTER 48 HOURS Resulted 05/28/20 10:50 Blood Blood Culture - Preliminary NO GROWTH AFTER 48 HOURS Resulted Assessment/Plan Assessment/Plan HC associated PNA Sepsis Dehydration/hypernatremia Dementia with psychosis Chronic DVT Low clinical suspicion for pulmonary emboic event Hx Covid 19 PNA Hx GI bleed Abx Hypotonic IVF -adjust Resp Rx DVT prophyl Follow up labs DC steroids Shaw Abraham MD May 30, 2020 17:54
[2020-05-30 20:00] VITALS: BP 122/69
--- NOTE | 2020-05-30 22:01 | Pulmonology Progress Note ---
Subjective ROS Limited/Unobtainable: Yes Constitutional: Reports: no symptoms HEENT: Repors: other Psychiatric: Reports: other - refusese medications & labs Allergies: Coded Allergies: PORK/PORCINE CONTAINING PRODUCTS (Verified Allergy, Mild, 08/03/11) All Systems: reviewed and negative except above Objective Last 24 Hour Vital Signs Date Time Temp Pulse Resp B/P (MAP) Pulse Ox O2 Delivery O2 Flow Rate FiO2 05/30/20 20:00 98.2 61 17 122/69 (86) 100 05/30/20 16:00 98.2 58 17 93/52 (66) 98 05/30/20 12:00 97.3 68 19 115/63 (80) 99 05/30/20 09:00 Nasal Cannula 2.0 05/30/20 08:00 98.4 59 17 107/56 (73) 100 05/30/20 04:00 96.6 62 16 111/56 (74) 98 05/30/20 00:00 97.2 58 20 98/65 (76) 100 Intake and Output 05/29/20 05/30/20 19:00 07:00 Intake Total 200 ml 1612.500 ml Output Total 250 ml 300 ml Balance -50 ml 1312.500 ml Intake Oral 200 ml IV Total 1612.500 ml Output Urine Total 250 ml 300 ml # Bowel Movements 1 1 Microbiology Date/Time Source Procedure Growth Status 05/28/20 11:38 Straight Cath Urine Culture - Final NO GROWTH AFTER 48 HOURS Complete 05/28/20 11:33 Nasopharynx SARS-CoV-2 RdRp Gene Assay - Final Complete 05/28/20 11:10 Blood Blood Culture - Preliminary NO GROWTH AFTER 48 HOURS Resulted 05/28/20 10:50 Blood Blood Culture - Preliminary NO GROWTH AFTER 48 HOURS Resulted Current Medications Medications (Trade) Dose Ordered Sig/Ji Route PRN Reason Start Time Stop Time Status Last Admin Dose Admin Acetaminophen (Tylenol) 650 mg Q4H PRN ORAL FEVER 05/28/20 19:30 06/27/20 19:29 Acetaminophen (Tylenol) 650 mg Q4H PRN ORAL MILD PAIN 05/28/20 19:30 06/27/20 19:29 Albuterol/ Ipratropium (Albuterol/ Ipratropium) 3 ml Q4H PRN HHN Shortness of Breath 05/29/20 08:00 06/03/20 07:59 Ascorbic Acid (Vitamin C) 500 mg DAILY ORAL 05/29/20 09:00 06/28/20 08:59 05/29/20 08:25 Benztropine Mesylate (Cogentin) 1 mg DAILY ORAL 05/29/20 09:00 06/28/20 08:59 05/29/20 08:25 Docusate Sodium (Colace) 100 mg TWICE A DAY ORAL 05/29/20 09:00 06/28/20 08:59 05/29/20 08:25 Heparin Sodium (Porcine) (Heparin 5000 units/ml) 5,000 units EVERY 12 HOURS SUBQ 05/29/20 09:00 07/13/20 08:59 05/30/20 08:46 Magnesium Hydroxide (Mom) 30 ml DAILYPRN PRN ORAL Constipation 05/28/20 19:30 06/27/20 19:29 Metoprolol Succinate (Toprol XL) 50 mg DAILY ORAL 05/29/20 09:00 08/27/20 08:59 05/29/20 08:24 Multivitamins Therapeutic (Therapeutic Multivitamin) 1 ea DAILY ORAL 05/29/20 09:00 06/28/20 08:59 05/29/20 08:24 Olanzapine (ZyPREXA) 5 mg DAILY ORAL 05/29/20 09:00 07/13/20 08:59 05/29/20 08:23 Pantoprazole (Protonix) 40 mg DAILY ORAL 05/29/20 09:00 06/28/20 08:59 05/29/20 08:25 Piperacillin Sod/ Tazobactam Sod 3.375 gm/Sodium Chloride 110 ml @ 27.5 mls/hr EVERY 8 HOURS IVPB 05/28/20 22:00 06/02/20 21:59 05/30/20 21:45 Sodium Chloride 1,000 ml @ 75 mls/hr [id number] IV 05/28/20 23:30 06/27/20 23:29 05/30/20 15:30 Valproic Acid (Depakene) 500 mg Q12HR ORAL 05/29/20 09:00 06/28/20 08:59 05/30/20 08:46 Assessment/Plan Assessment/Plan Pulmonary Progress Note HPI: Patient is an 85-year-old man with past history of advanced dementia, psychosis, GI bleeding, bilateral chronic lower extremity DVT -not on anticoagulation. Admitted with uper GI bleed, developed coffee-ground emesis, hypoxia and shortness of breath prior to admission.Noted to have Pulmonary Infiltrates on CT Chest/abdomen Past Medical History: Cerebrovascular disease, dementia with psychosis, hypertension, hypertensive heart disease, schizophrenia, COPD, history of gastroenteritis, paroxysmal atrial arrhythmia, paroxysmal atrial ectopy, chronic bilateral lower extremity DVTs. Stable on NCO2 Objective: Vital signs noted PE: GENERAL: Chronically ill appearing, no acute distress. HEENT: Conjunctival pallor. Oropharynx clear. NECK: Jugular venous pressure normal. No LN LUNGS: Coarse breath sounds bilaterally. CARDIAC: Regular rhythm and rate. Normal S1, S2 ABDOMEN: SNTND. EXTREMITIES: No edema, but increased rigidity is noted. Skin intact NEUROLOGIC: Moves all extremities, but does not follow any commands. No seizures Laboratory:Noted Imaging: CT scan revealed diffuse interstitial infiltrates with reticular change and ground glass infiltrates. EKG sinus rhythm with nonspecific ST change. Impression: Recurring upper GI bleeding. Healthcare-acquired pneumonia, possible sepsis COPD Hypovolemia and dehydration. Acute on chronic kidney injury. Dementia,Psychosis Chronic DVTs. COVID-19 negative Hypertension Cerebrovascular disease Protein-calorie malnutrition. Plan: IV AB O2 PRN HHN IVF PPX Await cultures Monitor labs TFN PRN, on PPI, AC held Shaw Diego MD May 30, 2020 22:01
[2020-05-31] VITALS: BP 120/65
[2020-05-31] MEDS: Piperacillin/Tazobactam 3.375 GM in NS 110 ML IVPB SCH ×3 (06:26→22:00)
[2020-05-31 08:00] VITALS: BP 135/73
[2020-05-31] MEDS: Multivitamin w/Minerals tab ORAL SCH (08:42)
[2020-05-31] MEDS: Benztropine 1mg tab ORAL SCH (08:42)
[2020-05-31] MEDS: Metoprolol Succinate XL 50mg tab ORAL SCH (08:42)
[2020-05-31] MEDS: Docusate 100mg cap ORAL SCH ×2 (08:42→17:13)
[2020-05-31] MEDS: Heparin 5000 units/ml inj SUBQ SCH ×2 (08:43→20:57)
[2020-05-31] MEDS: Ascorbic Acid 500mg tab ORAL SCH (08:43)
[2020-05-31 12:00] VITALS: BP 135/77
[2020-05-31 14:30] LABS: BASOPHILS % (AUTO) 1.3 % (0.0-2.0); EOSINOPHILS % (AUTO) 7.3 % (0.0-3.0); HEMATOCRIT 37.9 % (42.0-52.0); HEMOGLOBIN 12.8 G/DL (14.2-18.0); LYMPHOCYTES % (AUTO) 38.9 % (20.0-45.0); MEAN CORPUSCULAR VOLUME 95 FL (80-99); MONOCYTES % (AUTO) 7.3 % (1.0-10.0); NEUTROPHILS % (AUTO) 45.2 % (45.0-75.0); PLATELET COUNT 293 K/UL (150-450); RED BLOOD COUNT 3.99 M/UL (4.70-6.10); RED CELL DISTRIBUTION WIDTH 12.7 % (11.6-14.8); WHITE BLOOD COUNT 7.7 K/UL (4.8-10.8)
[2020-05-31 14:46] LABS: ALANINE AMINOTRANSFERASE 12 U/L (12-78); ALBUMIN 2.6 G/DL (3.4-5.0); ALBUMIN/GLOBULIN RATIO 0.6 (1.0-2.7); ALKALINE PHOSPHATASE 39 U/L (46-116); ANION GAP 5 mmol/L (5-15); ASPARTATE AMINO TRANSFERASE 17 U/L (15-37); BILIRUBIN,TOTAL 0.7 MG/DL (0.2-1.0); BLOOD UREA NITROGEN 10 mg/dL (7-18); CALCIUM 8.3 MG/DL (8.5-10.1); CARBON DIOXIDE 29 MMOL/L (21-32); CHLORIDE 106 MMOL/L (98-107); CREATININE 0.8 MG/DL (0.55-1.30); POTASSIUM 3.6 MMOL/L (3.5-5.1); SODIUM 140 MMOL/L (136-145)
--- NOTE | 2020-05-31 15:30 | Pulmonology Progress Note ---
Subjective ROS Limited/Unobtainable: Yes Constitutional: Reports: no symptoms HEENT: Repors: other Psychiatric: Reports: other - refusese medications & labs Allergies: Coded Allergies: PORK/PORCINE CONTAINING PRODUCTS (Verified Allergy, Mild, 08/03/11) All Systems: reviewed and negative except above Objective Last 24 Hour Vital Signs Date Time Temp Pulse Resp B/P (MAP) Pulse Ox O2 Delivery O2 Flow Rate FiO2 05/31/20 12:00 97.4 61 18 135/77 (96) 98 05/31/20 09:00 Nasal Cannula 2.0 05/31/20 08:42 63 135/73 05/31/20 08:00 98.3 63 18 135/73 (93) 97 05/31/20 00:00 98.1 60 18 120/65 (83) 98 05/30/20 21:00 Nasal Cannula 2.0 05/30/20 20:00 98.2 61 17 122/69 (86) 100 05/30/20 16:00 98.2 58 17 93/52 (66) 98 Intake and Output 05/30/20 05/31/20 19:00 07:00 Intake Total 300 ml 1580.0 ml Output Total 600 ml 1000 ml Balance -300 ml 580.0 ml Intake Oral 200 ml 420 ml IV Total 100 ml 1160.0 ml Output Urine Total 600 ml 1000 ml # Bowel Movements 1 1 Laboratory Tests 05/31/20 14:00: White Blood Count 7.7, Red Blood Count 3.99L, Hemoglobin 12.8L, Hematocrit 37.9L , Mean Corpuscular Volume 95, Mean Corpuscular Hemoglobin 32.1H, Mean Corpuscular Hemoglobin Concent 33.8, Red Cell Distribution Width 12.7, Platelet Count 293, Mean Platelet Volume 5.9L, Neutrophils (%) (Auto) 45.2, Lymphocytes (%) (Auto) 38.9, Monocytes (%) (Auto) 7.3, Eosinophils (%) (Auto) 7.3H, Basophils (%) (Auto) 1.3, Sodium Level 140, Potassium Level 3.6, Chloride Level 106, Carbon Dioxide Level 29, Anion Gap 5, Blood Urea Nitrogen 10, Creatinine 0.8, Estimat Glomerular Filtration Rate > 60, Glucose Level 133H, Calcium Level 8.3L, Magnesium Level 1.9, Total Bilirubin 0.7, Aspartate Amino Transf (AST/SGOT) 17, Alanine Aminotransferase (ALT/SGPT) 12, Alkaline Phosphatase 39L, Total Protein 6.7, Albumin 2.6L, Globulin 4.1, Albumin/Globulin Ratio 0.6L Current Medications Medications (Trade) Dose Ordered Sig/Ji Route PRN Reason Start Time Stop Time Status Last Admin Dose Admin Acetaminophen (Tylenol) 650 mg Q4H PRN ORAL FEVER 05/28/20 19:30 06/27/20 19:29 Acetaminophen (Tylenol) 650 mg Q4H PRN ORAL MILD PAIN 05/28/20 19:30 06/27/20 19:29 Albuterol/ Ipratropium (Albuterol/ Ipratropium) 3 ml Q4H PRN HHN Shortness of Breath 05/29/20 08:00 06/03/20 07:59 Ascorbic Acid (Vitamin C) 500 mg DAILY ORAL 05/29/20 09:00 06/28/20 08:59 05/29/20 08:25 Benztropine Mesylate (Cogentin) 1 mg DAILY ORAL 05/29/20 09:00 06/28/20 08:59 05/29/20 08:25 Docusate Sodium (Colace) 100 mg TWICE A DAY ORAL 05/29/20 09:00 06/28/20 08:59 05/29/20 08:25 Heparin Sodium (Porcine) (Heparin 5000 units/ml) 5,000 units EVERY 12 HOURS SUBQ 05/29/20 09:00 07/13/20 08:59 05/30/20 08:46 Magnesium Hydroxide (Mom) 30 ml DAILYPRN PRN ORAL Constipation 05/28/20 19:30 06/27/20 19:29 Metoprolol Succinate (Toprol XL) 50 mg DAILY ORAL 05/29/20 09:00 08/27/20 08:59 05/29/20 08:24 Multivitamins Therapeutic (Therapeutic Multivitamin) 1 ea DAILY ORAL 05/29/20 09:00 06/28/20 08:59 05/29/20 08:24 Olanzapine (ZyPREXA) 5 mg DAILY ORAL 05/29/20 09:00 07/13/20 08:59 05/29/20 08:23 Pantoprazole (Protonix) 40 mg DAILY ORAL 05/29/20 09:00 06/28/20 08:59 05/29/20 08:25 Piperacillin Sod/ Tazobactam Sod 3.375 gm/Sodium Chloride 110 ml @ 27.5 mls/hr EVERY 8 HOURS IVPB 05/28/20 22:00 06/02/20 21:59 05/31/20 14:10 Sodium Chloride 1,000 ml @ 75 mls/hr [id number] IV 05/28/20 23:30 06/27/20 23:29 05/31/20 04:01 Valproic Acid (Depakene) 500 mg Q12HR ORAL 05/29/20 09:00 06/28/20 08:59 05/30/20 08:46 Assessment/Plan Assessment/Plan Pulmonary Progress Note HPI: Patient is an 85-year-old man with past history of advanced dementia, psychosis, GI bleeding, bilateral chronic lower extremity DVT -not on anticoagulation. Admitted with uper GI bleed, developed coffee-ground emesis, hypoxia and shortness of breath prior to admission.Noted to have Pulmonary Infiltrates on CT Chest/abdomen Past Medical History: Cerebrovascular disease, dementia with psychosis, hypertension, hypertensive heart disease, schizophrenia, COPD, history of gastroenteritis, paroxysmal atrial arrhythmia, paroxysmal atrial ectopy, chronic bilateral lower extremity DVTs. Stable on NCO2 2L Objective: Vital signs noted PE: GENERAL: Chronically ill appearing, no acute distress. HEENT: Conjunctival pallor. Oropharynx clear. NECK: Jugular venous pressure normal. No LN LUNGS: Coarse breath sounds bilaterally. CARDIAC: Regular rhythm and rate. Normal S1, S2 ABDOMEN: SNTND. EXTREMITIES: No edema, but increased rigidity is noted. Skin intact NEUROLOGIC: Moves all extremities, but does not follow any commands. No seizures Laboratory:Noted Imaging: CT scan revealed diffuse interstitial infiltrates with reticular change and ground glass infiltrates. EKG sinus rhythm with nonspecific ST change. Impression: Recurring upper GI bleeding. Healthcare-acquired pneumonia, possible sepsis COPD Hypovolemia and dehydration. Acute on chronic kidney injury. Dementia,Psychosis Chronic DVTs. COVID-19 negative Hypertension Cerebrovascular disease Protein-calorie malnutrition. Plan: IV AB O2 PRN HHN IVF PPX Await cultures Monitor labs TFN PRN, on PPI, AC held Shaw Diego MD May 31, 2020 15:30
[2020-05-31 16:00] VITALS: BP 128/77
--- NOTE | 2020-05-31 16:38 | Infectious Diseases Prog Note ---
Assessment/Plan Assessment/Plan A: 1. Pneumonia.COVID19 test negative 2. Leukocytosis, resolved 3. Schizophrenia. 4. Hypertension. 5. GI bleeding. PLAN: 1. Continue Zosyn Subjective ROS Limited/Unobtainable: Yes Constitutional: Reports: no symptoms Respiratory: Reports: no symptoms Gastrointestinal/Abdominal: Reports: no symptoms Genitourinary: Reports: no symptoms Allergies: Coded Allergies: PORK/PORCINE CONTAINING PRODUCTS (Verified Allergy, Mild, 08/03/11) Objective Last 24 Hour Vital Signs Date Time Temp Pulse Resp B/P (MAP) Pulse Ox O2 Delivery O2 Flow Rate FiO2 05/31/20 16:00 98.0 79 18 128/77 (94) 96 05/31/20 12:00 97.4 61 18 135/77 (96) 98 05/31/20 09:00 Nasal Cannula 2.0 05/31/20 08:42 63 135/73 05/31/20 08:00 98.3 63 18 135/73 (93) 97 05/31/20 00:00 98.1 60 18 120/65 (83) 98 05/30/20 21:00 Nasal Cannula 2.0 05/30/20 20:00 98.2 61 17 122/69 (86) 100 Height (Feet): 5 Height (Inches): 11.00 Weight (Pounds): 240 General Appearance: no acute distress HEENT: mucous membranes moist Respiratory/Chest: lungs clear, other - oxygen by nasal cannula Cardiovascular: normal rate Abdomen: soft, non tender Extremities: no edema Neurologic/Psychiatric: alert, responsive, other - tremor Laboratory Tests Test 05/31/20 14:00 White Blood Count 7.7 K/UL (4.8-10.8) Red Blood Count 3.99 M/UL (4.70-6.10) L Hemoglobin 12.8 G/DL (14.2-18.0) L Hematocrit 37.9 % (42.0-52.0) L Mean Corpuscular Volume 95 FL (80-99) Mean Corpuscular Hemoglobin 32.1 PG (27.0-31.0) H Mean Corpuscular Hemoglobin Concent 33.8 G/DL (32.0-36.0) Red Cell Distribution Width 12.7 % (11.6-14.8) Platelet Count 293 K/UL (150-450) Mean Platelet Volume 5.9 FL (6.5-10.1) L Neutrophils (%) (Auto) 45.2 % (45.0-75.0) Lymphocytes (%) (Auto) 38.9 % (20.0-45.0) Monocytes (%) (Auto) 7.3 % (1.0-10.0) Eosinophils (%) (Auto) 7.3 % (0.0-3.0) H Basophils (%) (Auto) 1.3 % (0.0-2.0) Sodium Level 140 MMOL/L (136-145) Potassium Level 3.6 MMOL/L (3.5-5.1) Chloride Level 106 MMOL/L (98-107) Carbon Dioxide Level 29 MMOL/L (21-32) Anion Gap 5 mmol/L (5-15) Blood Urea Nitrogen 10 mg/dL (7-18) Creatinine 0.8 MG/DL (0.55-1.30) Estimat Glomerular Filtration Rate > 60 mL/min (>60) Glucose Level 133 MG/DL (74-106) H Calcium Level 8.3 MG/DL (8.5-10.1) L Magnesium Level 1.9 MG/DL (1.8-2.4) Total Bilirubin 0.7 MG/DL (0.2-1.0) Aspartate Amino Transf (AST/SGOT) 17 U/L (15-37) Alanine Aminotransferase (ALT/SGPT) 12 U/L (12-78) Alkaline Phosphatase 39 U/L (46-116) L Total Protein 6.7 G/DL (6.4-8.2) Albumin 2.6 G/DL (3.4-5.0) L Globulin 4.1 g/dL Albumin/Globulin Ratio 0.6 (1.0-2.7) L Current Medications Medications (Trade) Dose Ordered Sig/Ji Route PRN Reason Start Time Stop Time Status Last Admin Dose Admin Acetaminophen (Tylenol) 650 mg Q4H PRN ORAL FEVER 05/28/20 19:30 06/27/20 19:29 Acetaminophen (Tylenol) 650 mg Q4H PRN ORAL MILD PAIN 05/28/20 19:30 06/27/20 19:29 Albuterol/ Ipratropium (Albuterol/ Ipratropium) 3 ml Q4H PRN HHN Shortness of Breath 05/29/20 08:00 06/03/20 07:59 Ascorbic Acid (Vitamin C) 500 mg DAILY ORAL 05/29/20 09:00 06/28/20 08:59 05/29/20 08:25 Benztropine Mesylate (Cogentin) 1 mg DAILY ORAL 05/29/20 09:00 06/28/20 08:59 05/29/20 08:25 Docusate Sodium (Colace) 100 mg TWICE A DAY ORAL 05/29/20 09:00 06/28/20 08:59 05/29/20 08:25 Heparin Sodium (Porcine) (Heparin 5000 units/ml) 5,000 units EVERY 12 HOURS SUBQ 05/29/20 09:00 07/13/20 08:59 05/30/20 08:46 Magnesium Hydroxide (Mom) 30 ml DAILYPRN PRN ORAL Constipation 05/28/20 19:30 06/27/20 19:29 Metoprolol Succinate (Toprol XL) 50 mg DAILY ORAL 05/29/20 09:00 08/27/20 08:59 05/29/20 08:24 Multivitamins Therapeutic (Therapeutic Multivitamin) 1 ea DAILY ORAL 05/29/20 09:00 06/28/20 08:59 05/29/20 08:24 Olanzapine (ZyPREXA) 5 mg DAILY ORAL 05/29/20 09:00 07/13/20 08:59 05/29/20 08:23 Pantoprazole (Protonix) 40 mg DAILY ORAL 05/29/20 09:00 06/28/20 08:59 05/29/20 08:25 Piperacillin Sod/ Tazobactam Sod 3.375 gm/Sodium Chloride 110 ml @ 27.5 mls/hr EVERY 8 HOURS IVPB 05/28/20 22:00 06/02/20 21:59 05/31/20 14:10 Sodium Chloride 1,000 ml @ 75 mls/hr [id number] IV 05/28/20 23:30 06/27/20 23:29 05/31/20 04:01 Valproic Acid (Depakene) 500 mg Q12HR ORAL 05/29/20 09:00 06/28/20 08:59 05/30/20 08:46 Scott Jack MD May 31, 2020 16:38
[2020-05-31 20:00] VITALS: BP 130/72
[2020-06-01] VITALS: BP 126/71
--- NOTE | 2020-06-01 02:10 | Cardiology Progress Note ---
Subjective DATE OF SERVICE: May 31, 2020 Uncooperative but allowed lab draw Spits out meds No respiratory distress Objective Last 24 Hour Vital Signs Date Time Temp Pulse Resp B/P (MAP) Pulse Ox O2 Delivery O2 Flow Rate FiO2 06/01/20 00:00 97.9 72 20 126/71 (89) 97 05/31/20 21:00 Nasal Cannula 2.0 05/31/20 20:00 98.2 69 18 130/72 (91) 98 05/31/20 16:00 98.0 79 18 128/77 (94) 96 05/31/20 12:00 97.4 61 18 135/77 (96) 98 05/31/20 09:00 Nasal Cannula 2.0 05/31/20 08:42 63 135/73 05/31/20 08:00 98.3 63 18 135/73 (93) 97 HEENT: normal ENT inspection LUNGS: bilateral rhonchi CARDIAC: normal rate, regular rhythm, normal S1 and S2 ABDOMEN: normal bowel sounds, non tender, no organomegaly EXTREMITIES: non-tender, No edema Laboratory Tests Test 05/31/20 14:00 White Blood Count 7.7 K/UL (4.8-10.8) Red Blood Count 3.99 M/UL (4.70-6.10) L Hemoglobin 12.8 G/DL (14.2-18.0) L Hematocrit 37.9 % (42.0-52.0) L Mean Corpuscular Volume 95 FL (80-99) Mean Corpuscular Hemoglobin 32.1 PG (27.0-31.0) H Mean Corpuscular Hemoglobin Concent 33.8 G/DL (32.0-36.0) Red Cell Distribution Width 12.7 % (11.6-14.8) Platelet Count 293 K/UL (150-450) Mean Platelet Volume 5.9 FL (6.5-10.1) L Neutrophils (%) (Auto) 45.2 % (45.0-75.0) Lymphocytes (%) (Auto) 38.9 % (20.0-45.0) Monocytes (%) (Auto) 7.3 % (1.0-10.0) Eosinophils (%) (Auto) 7.3 % (0.0-3.0) H Basophils (%) (Auto) 1.3 % (0.0-2.0) Sodium Level 140 MMOL/L (136-145) Potassium Level 3.6 MMOL/L (3.5-5.1) Chloride Level 106 MMOL/L (98-107) Carbon Dioxide Level 29 MMOL/L (21-32) Anion Gap 5 mmol/L (5-15) Blood Urea Nitrogen 10 mg/dL (7-18) Creatinine 0.8 MG/DL (0.55-1.30) Estimat Glomerular Filtration Rate > 60 mL/min (>60) Glucose Level 133 MG/DL (74-106) H Calcium Level 8.3 MG/DL (8.5-10.1) L Magnesium Level 1.9 MG/DL (1.8-2.4) Total Bilirubin 0.7 MG/DL (0.2-1.0) Aspartate Amino Transf (AST/SGOT) 17 U/L (15-37) Alanine Aminotransferase (ALT/SGPT) 12 U/L (12-78) Alkaline Phosphatase 39 U/L (46-116) L Total Protein 6.7 G/DL (6.4-8.2) Albumin 2.6 G/DL (3.4-5.0) L Globulin 4.1 g/dL Albumin/Globulin Ratio 0.6 (1.0-2.7) L Assessment/Plan Assessment/Plan HC associated PNA Sepsis Dehydration/hypernatremia Dementia with psychosis Chronic DVT Low clinical suspicion for pulmonary emboic event Hx Covid 19 PNA Hx GI bleed Abx DC IVF Resp Rx DVT prophyl DC plan to SNF tomorrow on oral rx Shaw Abraham MD Jun 01, 2020 02:10
[2020-06-01] MEDS ORDERED: VALPROIC ACID250 MG ORAL (02:12)
[2020-06-01] MEDS ORDERED: AUGMENTIN 500-1 EACH ORAL (02:12)
[2020-06-01 04:00] VITALS: BP 122/67
[2020-06-01] MEDS: Piperacillin/Tazobactam 3.375 GM in NS 110 ML IVPB SCH ×2 (06:00→13:13)
[2020-06-01 08:00] VITALS: BP 126/70
[2020-06-01] MEDS: Benztropine 1mg tab ORAL SCH (09:00)
[2020-06-01] MEDS: Docusate 100mg cap ORAL SCH (09:00)
[2020-06-01] MEDS: Heparin 5000 units/ml inj SUBQ SCH (09:00)
[2020-06-01] MEDS: Multivitamin w/Minerals tab ORAL SCH (09:00)
[2020-06-01] MEDS: Ascorbic Acid 500mg tab ORAL SCH (09:00)
[2020-06-01] MEDS: Metoprolol Succinate XL 50mg tab ORAL SCH (09:00)
--- NOTE | 2020-06-01 16:32 | Cardiology Progress Note ---
Subjective DATE OF SERVICE: Jun 01, 2020 Uncooperative but allowed lab draw last nite Spits out meds No respiratory distress WBC down Objective Last 24 Hour Vital Signs Date Time Temp Pulse Resp B/P (MAP) Pulse Ox O2 Delivery O2 Flow Rate FiO2 06/01/20 09:00 Nasal Cannula 2.0 06/01/20 08:00 98.0 75 18 126/70 (88) 99 06/01/20 04:00 97.9 79 19 122/67 (85) 97 06/01/20 00:00 97.9 72 20 126/71 (89) 97 05/31/20 21:00 Nasal Cannula 2.0 05/31/20 20:00 98.2 69 18 130/72 (91) 98 HEENT: normal ENT inspection LUNGS: bilateral rhonchi CARDIAC: normal rate, regular rhythm, normal S1 and S2 ABDOMEN: normal bowel sounds, non tender, no organomegaly EXTREMITIES: non-tender, No edema Assessment/Plan Assessment/Plan HC associated PNA Sepsis Dehydration/hypernatremia Dementia with psychosis Chronic DVT Low clinical suspicion for pulmonary emboic event Hx Covid 19 PNA Hx GI bleed Oral Abx DC IVF Resp Rx DVT prophyl DC plan to SNF today on oral rx Shaw Abraham MD Jun 01, 2020 16:32
--- NOTE | 2020-06-01 20:32 | Pulmonology Progress Note ---
Subjective ROS Limited/Unobtainable: Yes Constitutional: Reports: no symptoms HEENT: Repors: other Gastrointestinal/Abdominal: Reports: no symptoms Psychiatric: Reports: other - refusese medications & labs Allergies: Coded Allergies: PORK/PORCINE CONTAINING PRODUCTS (Verified Allergy, Mild, 08/03/11) All Systems: reviewed and negative except above Objective Last 24 Hour Vital Signs Date Time Temp Pulse Resp B/P (MAP) Pulse Ox O2 Delivery O2 Flow Rate FiO2 06/01/20 09:00 Nasal Cannula 2.0 06/01/20 08:00 98.0 75 18 126/70 (88) 99 06/01/20 04:00 97.9 79 19 122/67 (85) 97 06/01/20 00:00 97.9 72 20 126/71 (89) 97 05/31/20 21:00 Nasal Cannula 2.0 Intake and Output 05/31/20 06/01/20 18:59 06:59 Intake Total 75 ml 220 ml Output Total 1200 ml 500 ml Balance -1125 ml -280 ml Intake Oral 220 ml IV Total 75 ml Output Urine Total 1200 ml 500 ml # Bowel Movements 1 1 Assessment/Plan Assessment/Plan Pulmonary Progress Note HPI: Patient is an 85-year-old man with past history of advanced dementia, psychosis, GI bleeding, bilateral chronic lower extremity DVT -not on anticoagulation. Admitted with uper GI bleed, developed coffee-ground emesis, hypoxia and shortness of breath prior to admission.Noted to have Pulmonary Infiltrates on CT Chest/abdomen Past Medical History: Cerebrovascular disease, dementia with psychosis, hypertension, hypertensive heart disease, schizophrenia, COPD, history of gastroenteritis, paroxysmal atrial arrhythmia, paroxysmal atrial ectopy, chronic bilateral lower extremity DVTs. Stable on NCO2 2L DC planning noted Objective: Vital signs noted PE: GENERAL: Chronically ill appearing, no acute distress. HEENT: Conjunctival pallor. Oropharynx clear. NECK: Jugular venous pressure normal. No LN LUNGS: Coarse breath sounds bilaterally. CARDIAC: Regular rhythm and rate. Normal S1, S2 ABDOMEN: SNTND. EXTREMITIES: No edema, but increased rigidity is noted. Skin intact NEUROLOGIC: Moves all extremities, but does not follow any commands. No seizures Laboratory:Noted Imaging: CT scan revealed diffuse interstitial infiltrates with reticular change and ground glass infiltrates. EKG sinus rhythm with nonspecific ST change. Impression: Recurring upper GI bleeding. Healthcare-acquired pneumonia, possible sepsis COPD Hypovolemia and dehydration. Acute on chronic kidney injury. Dementia,Psychosis Chronic DVTs. COVID-19 negative Hypertension Cerebrovascular disease Protein-calorie malnutrition. Plan: IV AB O2 PRN HHN IVF PPX Await cultures Monitor labs TFN PRN, on PPI, DC SNF Shaw Diego MD Jun 01, 2020 20:32
--- NOTE | 2020-06-03 12:01 | Discharge Summary ---
Discharge Summary Discharge Summary _ DATE OF ADMISSION: 05/28/2020 DATE OF DISCHARGE: 06/01/2020 DISCHARGED BY: Dr. Crandall REASON FOR ADMISSION: 85 years old male with past medical history of chronic DVT, hypertension, severe schizophrenia, GI bleeding, COVID-19 pneumonia, presented with complaint of poor oral intake, lethargy and confusion. Patient by himself was s a poor historian and unable to provide much of the history. On evaluation in emergency room patient had leukocytosis WBC 17. Chest x-ray revealed evidence of pneumonia. Rapid COVID-19 was negative. Patient pancultured , received fluid bolus, started on empiric antibiotic and admitted for further management. CONSULTANTS: commercial manager pulmonary Dr. Diego ID specialist Dr. Drake HOSPITAL COURSE: Patient admitted to medical surgical floor and started on broad-spectrum antibiotic as per ID specialist recommendation. Supplemental oxygen provided as needed to keep pulse oximetry above 92%. Electronic Masking System Operator follow-up to assist with blood pressure management. Blood cultures were negative. Urine culture was negative. CT scan of the chest , abdomen and pelvis revealed pulmonary reticular and airspace opacity , similar to the previous exam ; most extensive in the left upper lobe and left lower lobe. Possibly chronic changes. Borderline cardiomegaly. Esophageal wall thickening , also previously reported , possible esophagitis. Small hiatal hernia. Cholelithiasis. Mild prostatomegaly. Supplemental oxygen provided and titrated to keep pulse oximetry above 92%. Pulmonary toilet provided. DVT and GI prophylaxis provided. Patient received IV fluids. Renal parameters and electrolytes were closely monitored , electrolytes corrected as needed , and nephrotoxins were avoided. BUN from 44 down to 10. Creatinine remained stable. SNF medication continued, including psych medication. Blood pressure was managed with a beta-sameer. Hemoglobin and hematocrit were closely monitored, and prior to discharge hemoglobin 12.8, hematocrit 27.9. No evidence of GI bleeding. Aspiration precaution maintained. Bowel regimen instituted. Supportive care provided. Leukocytosis resolved. Antibiotic changed to oral upon discharge to complete the course at the facility. Pulse oximetry stable on 2 L of oxygen via nasal cannula. Patient clinically stabilized and was ready for discharge FINAL DIAGNOSES: Healthcare acquired pneumonia Possible sepsis COPD Acute kidney injury, probably due to dehydration - resolved Chronic DVT Hypertension Cerebrovascular disease Protein calorie malnutrition Leukocytosis -resolved Schizophrenia History of GI bleeding DISCHARGE MEDICATIONS: See Medication Reconciliation list. DISCHARGE INSTRUCTIONS: [facility]. Follow up with medical doctor at the facility. I have been assigned to dictate discharge summary for this account. I was not involved in the patient's management. Syl Macias NP Jun 03, 2020 12:01
== END 2020-06-01 14:39 | DRG 871 ==
LOC: EDBD 10:52 → EMR 12:53 → 4E 13:12 → EDBEDREQ 20:43 → 4E 21:52
DX: A41.9 Sepsis, unspecified organism (principal); K29.71 Gastritis, unspecified, with bleeding; J18.9 Pneumonia, unspecified organism; Z68.1 Body mass index [BMI] 19.9 or less, adult; N17.9 Acute kidney failure, unspecified; I82.509 Chronic embolism and thrombosis of unspecified deep veins of unspecified lower extremity; E44.0 Moderate protein-calorie malnutrition; J44.0 Chronic obstructive pulmonary disease with (acute) lower respiratory infection; E86.0 Dehydration; F20.9 Schizophrenia, unspecified; K44.9 Diaphragmatic hernia without obstruction or gangrene; K80.20 Calculus of gallbladder without cholecystitis without obstruction; Y95 Nosocomial condition; I67.9 Cerebrovascular disease, unspecified; Z86.19 Personal history of other infectious and parasitic diseases
CPT/HCPCS: 36415; 71045; 71250; 74176; 80053; 81003; 82550; 83605; 83690; 83735; 84484; 85025; 85610; 85730; 86140; 86850; 86900; 86901; 87040; 87086; 93005; 93306; 96361; 96365; 96367; 96375; 99285; J7030; U0002

== ENCOUNTER 2020-06-14 11:10 | Inpatient (IN) | payer MEDICARE, MEDICAID ==
[~2020-06-14] VITALS: Ht 167.6 cm; Wt 61.2 kg
[~2020-06-14 11:10] MED LIST changes: +AUGMENTIN 500-1 EACH ORAL; +BENZTROPINE MESY1 MG ORAL; +DOCUSATE SODIU100 MG ORAL; +FERROUS SU220 MG/53 PO; +MULTI-DELYN237 ML GT; +VALPROIC ACID250 MG ORAL
[2020-06-14] MEDS ORDERED: Pantoprazole Inj IVP ONE (11:15)
[2020-06-14] MEDS ORDERED: cefTRIAXone 1 GM in NS 55 ML IVPB ONE (11:15)
--- NOTE | 2020-06-14 11:41 | Emergency Room Report ---
History of Present Illness General Chief Complaint: Gastrointestinal Bleed Source: Patient Present Illness HPI Disclaimer: Please note that this report is being documented using DRAGON technology. This can lead to erroneous entry secondary to incorrect interpretation by the dictating instrument. HPI: 85-year-old male history of schizophrenia, parkinsonism, DVT, GI bleed presents for evaluation of coffee-ground emesis. According to documentation the patient had multiple episodes of emesis with dark appearing material in them. History of schizophrenia and dementia cannot obtain information from patient at this time there he does state that he is not in any physical discomfort. He does not feel nauseous. Patient previously admitted for GI bleed but endoscopy could not be performed. He is on 40 mg Protonix PPI. Received Covid vaccine (G[place]) on 06/12. Recently tested negative for COVID-19 on 06/08. PMH: Schizophrenia, dementia, Parkinson, DVT, GI bleed, COPD PSH: Reviewed Allergies: Pork-containing products Social Hx: Reviewed Allergies: Coded Allergies: PORK/PORCINE CONTAINING PRODUCTS (Verified Allergy, Mild, 08/03/11) COVID-19 Screening Contact w/high risk pt: Yes Experienced COVID-19 symptoms?: No COVID-19 Testing performed [employer]: Yes - from SNf COVID-19 Screening: Negative COVID-19 COVID-19 Testing Source: 06/08 Nursing Documentation-PMH Hx Cardiac Problems: Yes Hx Hypertension: Yes Hx COPD: Yes Hx Diabetes: Yes Hx Cancer: No Hx Gastrointestinal Problems: Yes - gastroenteritis Hx Neurological Problems: Yes Hx Cerebrovascular Accident: Yes Hx Dementia: Yes Hx Seizures: Yes Hx Epilepsy: Yes Hx Concentration Difficulty: Yes Hx Neurologic Surgery: No Hx Brain Shunt: No Review of Systems All Other Systems: negative except mentioned in HPI Physical Exam Vital Signs Date Time Temp Pulse Resp B/P (MAP) Pulse Ox O2 Delivery O2 Flow Rate FiO2 06/14/20 11:11 98.8 97 18 145/78 (100) 96 Room Air General: Awake and alert, no acute distress HEENT: NC/AT. EOMI. Cardiovascular: RRR. S1 and S2 normal. No murmur appreciated Resp: Normal work of breathing. No cough, wheezing or crackles appreciated Abdomen: Abdomen is soft, nondistended. Nontender Skin: Intact. No abrasions, laceration or rash over the exposed skin MSK: Normal tone and bulk. Moving all extremities. No obvious deformity. Neuro: Awake and alert. Confused but pleasant. Able to make needs known. Resting tremor in the extremities Medical Decision Making Diagnostic Impression: Primary Impression: Coffee ground emesis Additional Impression: Fever ER Course 85-year-old male presents for evaluation of coffee-ground emesis. Concern for GI bleed the patient started IV Protonix, IV fluids, broad labs sent. EKG is nonischemic. Labs are returned largely within normal limits. Hemoglobin at 14.7 does not require transfusion. CT torso from last admission on 05/28 performed showed signs of esophagitis but otherwise no major GI abnormalities were identified. Patient became febrile in the ED. Tylenol given. Lactate within normal limits. Blood cultures are sent. Admitted to assigned hospitalist, Dr. Crandall. Laboratory Tests Test 06/14/20 11:44 06/14/20 11:45 Lactic Acid Level 1.80 mmol/L (0.4-2.0) White Blood Count 6.3 K/UL (4.8-10.8) Red Blood Count 4.66 M/UL (4.70-6.10) L Hemoglobin 14.9 G/DL (14.2-18.0) Hematocrit 46.6 % (42.0-52.0) Mean Corpuscular Volume 100 FL (80-99) H Mean Corpuscular Hemoglobin 32.0 PG (27.0-31.0) H Mean Corpuscular Hemoglobin Concent 32.0 G/DL (32.0-36.0) Red Cell Distribution Width 13.3 % (11.6-14.8) Platelet Count 328 K/UL (150-450) Mean Platelet Volume 4.9 FL (6.5-10.1) L Neutrophils (%) (Auto) 81.7 % (45.0-75.0) H Lymphocytes (%) (Auto) 12.2 % (20.0-45.0) L Monocytes (%) (Auto) 5.4 % (1.0-10.0) Eosinophils (%) (Auto) 0.0 % (0.0-3.0) Basophils (%) (Auto) 0.7 % (0.0-2.0) Prothrombin Time 12.3 SEC (9.30-11.50) H Prothrombin Time INR 1.1 (0.9-1.1) Activated Partial Thromboplast Time 25 SEC (23-33) Sodium Level 140 MMOL/L (136-145) Potassium Level 4.2 MMOL/L (3.5-5.1) Chloride Level 101 MMOL/L (98-107) Carbon Dioxide Level 35 MMOL/L (21-32) H Anion Gap 4 mmol/L (5-15) L Blood Urea Nitrogen 26 mg/dL (7-18) H Creatinine 1.3 MG/DL (0.55-1.30) Estimated Glomerular Filtration Rate 52.3 mL/min (>60) Glucose Level 133 MG/DL (74-106) H Calcium Level 9.3 MG/DL (8.5-10.1) Total Bilirubin 0.5 MG/DL (0.2-1.0) Aspartate Amino Transferase (AST) 26 U/L (15-37) Alanine Aminotransferase (ALT) 15 U/L (12-78) Alkaline Phosphatase 53 U/L (46-116) Troponin I 0.005 ng/mL (0.000-0.056) Total Protein 8.3 G/DL (6.4-8.2) H Albumin 3.3 G/DL (3.4-5.0) L Globulin 5.0 g/dL Albumin/Globulin Ratio 0.7 (1.0-2.7) L Lipase 135 U/L (73-393) Microbiology Date/Time Source Procedure Growth Status 06/14/20 11:25 Nasopharynx SARS-CoV-2 RdRp Gene Assay - Final Complete EKG Diagnostic Results Troponin ordered: Yes When was troponin ordered?: Jun 14, 2020 EKG Time: 11:30 Rate: normal Rhythm: NSR ST Segments: no acute changes Other Impression Sinus rhythm, left axis, normal intervals, no obvious ST segment changes though irregular baseline makes it somewhat difficult to interpret due to patient motion ASA given to the pt in ED: No - Acute GI bleed Rhythm Strip Diag. Results Rhythm Strip Time: 11:30 EP Interpretation: yes Rate: 90s Rhythm: NSR, no PVC's, no ectopy Last Vital Signs Date Time Temp Pulse Resp B/P (MAP) Pulse Ox O2 Delivery O2 Flow Rate FiO2 06/14/20 11:11 98.8 97 18 145/78 (100) 96 Room Air Disposition: ADMITTED INPATIENT Condition: Stable Danny Clarke MD Jun 14, 2020 11:41
[2020-06-14 12:01] VITALS: BP 124/80
[2020-06-14 12:05] LABS: BASOPHILS % (AUTO) 0.7 % (0.0-2.0); HEMATOCRIT 46.6 % (42.0-52.0); HEMOGLOBIN 14.9 G/DL (14.2-18.0); LYMPHOCYTES % (AUTO) 12.2 % (20.0-45.0); MEAN CORPUSCULAR VOLUME 100 FL (80-99); MONOCYTES % (AUTO) 5.4 % (1.0-10.0); NEUTROPHILS % (AUTO) 81.7 % (45.0-75.0); PLATELET COUNT 328 K/UL (150-450); RED BLOOD COUNT 4.66 M/UL (4.70-6.10); RED CELL DISTRIBUTION WIDTH 13.3 % (11.6-14.8); WHITE BLOOD COUNT 6.3 K/UL (4.8-10.8)
--- NOTE | 2020-06-14 12:08 | NUR ---
BROUGHT IN FROM LONG TERM with complains os vomited coffeground vangie today denies any abdominal pain labs done ekg done
[2020-06-14 12:09] LABS: INR 1.1 (0.9-1.1)
[2020-06-14 12:12] LABS: ALBUMIN 3.3 G/DL (3.4-5.0); ALBUMIN/GLOBULIN RATIO 0.7 (1.0-2.7); BILIRUBIN,TOTAL 0.5 MG/DL (0.2-1.0); CALCIUM 9.3 MG/DL (8.5-10.1); CREATININE 1.3 MG/DL (0.55-1.30); POTASSIUM 4.2 MMOL/L (3.5-5.1)
[2020-06-14] MEDS ORDERED: Acetaminophen 650mg/20.3ml NG ONE (12:15)
--- NOTE | 2020-06-14 12:35 | NUR ---
ED Nurse Note:urine sent to labs, given tylenol for fever
[2020-06-14] MEDS ORDERED: VALPROIC A250 MG/5 M PO (13:01)
[2020-06-14 13:54] VITALS: BP 84/56
[2020-06-14 13:56] LABS: APPEARANCE,URINE CLEAR; BILIRUBIN, URINE NEGATIVE (NEGATIVE); GLUCOSE, URINE (UA) NEGATIVE (NEGATIVE); KETONES,URINE NEGATIVE (NEGATIVE); LEUKOCYTE ESTERASE ,URINE NEGATIVE (NEGATIVE); NITRITE,URINE NEGATIVE (NEGATIVE); PH,URINE 6.5 (4.5-8.0); PROTEIN,URINE 1+ (NEGATIVE); UROBILINOGEN,URINE NORMAL MG/DL (0.0-1.0)
--- NOTE | 2020-06-14 14:02 | NUR ---
ED Nurse Note:pt. became hypotensive- given iv fluids
[2020-06-14 14:03] LABS: COLOR,URINE YELLOW
--- NOTE | 2020-06-14 15:13 | Diagnostic Imaging Report ---
Indication: Shortness of breath Technique: One view of the chest Comparison: 05/28/2020 Findings: Less optimal inspiration currently. There is mild nonspecific interstitial prominence again demonstrated, appearing similar to the prior exam. Normal heart size. Pleural spaces are clear. Impression: Mild nonspecific interstitial prominence, similar to prior study 05/28/2020.
[2020-06-14 16:13] VITALS: BP 95/60
--- NOTE | 2020-06-14 17:31 | NUR ---
report given to concepción jones patient is to be transfer to room 202 -2 via acls protocol
[2020-06-14] MEDS ORDERED: Milk of Magnesia 30ml Ud ORAL PRN (18:15)
--- NOTE | 2020-06-14 19:32 | NUR ---
NURSE NOTES: The patient is alert and oriented x2, has mild anxiety and agitations but a calm environment was immediately provided and he was able to relaxed as indicated.The Resp is room air.The skin is clear with capillary refill <3 secs. The patient has a Right AC 20g that is intact and asymptomatic.The bed in low level, call light within easy reach and siderails up x2. Will continue to monitor as indicated.
--- NOTE | 2020-06-14 19:36 | NUR ---
NURSE HAND-OFF REPORT: Important Events on Shift:Admited to unit @1750 Patient Status: Stable Diet: Clear liquid diet Pending Orders: NA Pending Results/Labs:NA Pending MD notification:NA Latest Vital Signs: Temperature 97.8 , Pulse 86 , B/P 100 /60 , Respiratory Rate 20 , O2 SAT 98 , Room Air, O2 Flow Rate . Vital Sign Comment: Stable EKG Rhythm: Sinus Rhythm Rhythm change?: MD Notified?: - MD Response: Latest [place] Fall Score: 35 Fall Risk: Medium Risk Safety Measures: Call light Within Reach, Bed Alarm Zone 1, Side Rails Side Rails x2, Bed position Low and Locked. Fall Precautions: Yellow Socks Report given to LUIS Helm.
[2020-06-14 20:00] VITALS: BP 138/85
[2020-06-14] MEDS: Pantoprazole Inj IVP SCH (20:50)
[2020-06-14] MEDS: Piperacillin/Tazobactam 3.375 GM in NS 110 ML IVPB SCH (20:50)
[2020-06-15] VITALS: BP 141/82
[2020-06-15 04:00] VITALS: BP 135/71
[2020-06-15] MEDS: Piperacillin/Tazobactam 3.375 GM in NS 110 ML IVPB SCH ×3 (05:50→20:30)
--- NOTE | 2020-06-15 07:14 | NUR ---
NURSE HAND-OFF REPORT: Important Events on Shift:Alert and stable confusion also noted Patient Status: Diet: Pending Orders: Pending Results/Labs: Pending MD notification: Latest Vital Signs: Temperature 98.1 , Pulse 74 , B/P 135 /71 , Respiratory Rate 19 , O2 SAT 96 , Room Air, O2 Flow Rate . Vital Sign Comment: EKG Rhythm: Sinus Rhythm Rhythm change?: N MD Notified?: - MD Response: Latest [place] Fall Score: 35 Fall Risk: Medium Risk Safety Measures: Call light Within Reach, Bed Alarm Zone 1, Side Rails Side Rails x2, Bed position Low and Locked. Fall Precautions: Yellow Socks Yellow Gown Door Sign Patient Fall Education Report given to .
--- NOTE | 2020-06-15 07:20 | NUR ---
NURSE NOTES: Received patient in bed. Awake, A/O x2. On room air, respirations unlabored. Patient denies pain. IV in Right AC, site intact. Bed low and locked, side rails up x2, bed alarm, call light within reach - unable to return demonstration.
[2020-06-15 08:00] VITALS: BP 124/63
[2020-06-15] MEDS: Benztropine 1mg tab ORAL SCH ×2 (08:44→08:54)
[2020-06-15] MEDS: Pantoprazole Inj IVP SCH ×3 (08:44→20:30)
[2020-06-15] MEDS: Ascorbic Acid 500mg tab ORAL SCH ×2 (08:44→08:55)
[2020-06-15] MEDS: Metoprolol Succinate XL 50mg tab ORAL SCH ×2 (08:45→08:54)
--- NOTE | 2020-06-15 08:52 | NUR ---
NURSE NOTES: Patient refusing all PO medications and oral ready-CAT for CT procedure. Patient re-educated on risks and benefits, multiple attempts done. Dr Crandall made aware.
--- NOTE | 2020-06-15 09:45 | History and Physical Report ---
DATE OF ADMISSION: 06/14/2020 CHIEF COMPLAINT: GI bleed and fever. HISTORY OF PRESENT ILLNESS: The patient is an 85-year-old male. He has a history of severe schizophrenia, chronic DVT, prior history of GI bleed, who presented with complaints of coffee-ground emesis and fevers. On evaluation in the emergency room, the patient's hemoglobin was stable. He did spike a temperature of 102.7. His white count was normal and chest x-ray was clear, but in light of the patient's coffee-ground emesis and fever, he is now admitted for further evaluation and care. PAST MEDICAL HISTORY: As above. PAST SURGICAL HISTORY: None. CURRENT MEDICATIONS: Reconciled and reviewed. ALLERGIES: Include pork. FAMILY HISTORY: Noncontributory. SOCIAL HISTORY: There is no known history of tobacco, ethanol, or drugs. The patient currently resides at a locked psychiatric unit. REVIEW OF SYSTEMS: Unobtainable. The patient is uncooperative with exam. PHYSICAL EXAMINATION: VITAL SIGNS: Temperature 98, pulse 72, respirations 16, blood pressure 124/63. GENERAL: The patient is well developed. HEART: Regular rate and rhythm. LUNGS: Clear. ABDOMEN: Soft. EXTREMITIES: Without clubbing, cyanosis, or edema. No EPS or tardive dyskinesia is noted. LABORATORY DATA: UA was clear. Chest x-ray clear. White count was 6, hemoglobin 14, platelet count of 328. Coags are normal. ASSESSMENT: This is an 85-year-old male with a history of schizophrenia, prior history of GI bleed, COPD, history of chronic DVT, admitted with complaints of GI bleed and fever. PLAN: 1. IV proton-pump inhibitor. 2. Monitor serial CBCs. 3. Repeat chest x-ray and CAT scan of the abdomen to look for source of fever. 4. Empiric antibiotic therapy. 5. ID, Cardiology, GI consultations to be obtained. Alexis Crandall M.D. DR: AUGUSTINA JOB#: [id number] CC:
--- NOTE | 2020-06-15 10:33 | Cardiology Progress Note ---
Subjective DATE OF SERVICE: Jun 15, 2020 No distress Refuses care at times. Objective Last 24 Hour Vital Signs Date Time Temp Pulse Resp B/P (MAP) Pulse Ox O2 Delivery O2 Flow Rate FiO2 06/15/20 08:00 97.9 73 16 124/63 (83) 96 06/15/20 08:00 59 06/15/20 04:00 74 06/15/20 04:00 98.1 77 19 135/71 (92) 96 06/15/20 00:00 69 06/15/20 00:00 97.8 74 18 141/82 (101) 96 06/14/20 21:00 Room Air 06/14/20 20:00 97.3 78 17 138/85 (102) 99 06/14/20 20:00 82 06/14/20 18:19 Room Air 06/14/20 17:24 97.8 86 20 100/60 98 Room Air 06/14/20 16:13 97.8 100 18 95/60 98 Room Air 06/14/20 13:54 100.3 100 19 84/56 98 Room Air 06/14/20 13:08 100.6 06/14/20 12:30 102.7 06/14/20 12:03 86 18 Room Air 06/14/20 12:01 98.0 86 18 124/80 98 Room Air 06/14/20 11:11 98.8 97 18 145/78 (100) 96 Room Air HEENT: normal ENT inspection RHYTHM: NSR LUNGS: lungs clear bilaterally CARDIAC: normal rate, regular rhythm, normal S1 and S2 ABDOMEN: normal bowel sounds, non tender, soft, no organomegaly EXTREMITIES: normal range of motion, No edema Laboratory Tests Test 06/14/20 11:44 06/14/20 11:45 06/14/20 12:30 Lactic Acid Level 1.80 mmol/L (0.4-2.0) White Blood Count 6.3 K/UL (4.8-10.8) Red Blood Count 4.66 M/UL (4.70-6.10) L Hemoglobin 14.9 G/DL (14.2-18.0) Hematocrit 46.6 % (42.0-52.0) Mean Corpuscular Volume 100 FL (80-99) H Mean Corpuscular Hemoglobin 32.0 PG (27.0-31.0) H Mean Corpuscular Hemoglobin Concent 32.0 G/DL (32.0-36.0) Red Cell Distribution Width 13.3 % (11.6-14.8) Platelet Count 328 K/UL (150-450) Mean Platelet Volume 4.9 FL (6.5-10.1) L Neutrophils (%) (Auto) 81.7 % (45.0-75.0) H Lymphocytes (%) (Auto) 12.2 % (20.0-45.0) L Monocytes (%) (Auto) 5.4 % (1.0-10.0) Eosinophils (%) (Auto) 0.0 % (0.0-3.0) Basophils (%) (Auto) 0.7 % (0.0-2.0) Prothrombin Time 12.3 SEC (9.30-11.50) H Prothromb Time International Ratio 1.1 (0.9-1.1) Activated Partial Thromboplast Time 25 SEC (23-33) Sodium Level 140 MMOL/L (136-145) Potassium Level 4.2 MMOL/L (3.5-5.1) Chloride Level 101 MMOL/L (98-107) Carbon Dioxide Level 35 MMOL/L (21-32) H Anion Gap 4 mmol/L (5-15) L Blood Urea Nitrogen 26 mg/dL (7-18) H Creatinine 1.3 MG/DL (0.55-1.30) Estimat Glomerular Filtration Rate 52.3 mL/min (>60) Glucose Level 133 MG/DL (74-106) H Calcium Level 9.3 MG/DL (8.5-10.1) Total Bilirubin 0.5 MG/DL (0.2-1.0) Aspartate Amino Transf (AST/SGOT) 26 U/L (15-37) Alanine Aminotransferase (ALT/SGPT) 15 U/L (12-78) Alkaline Phosphatase 53 U/L (46-116) Troponin I 0.005 ng/mL (0.000-0.056) Total Protein 8.3 G/DL (6.4-8.2) H Albumin 3.3 G/DL (3.4-5.0) L Globulin 5.0 g/dL Albumin/Globulin Ratio 0.7 (1.0-2.7) L Lipase 135 U/L (73-393) Urine Color Yellow Urine Appearance Clear Urine pH 6.5 (4.5-8.0) Urine Specific [place] 1.015 (1.005-1.035) Urine Protein 1+ (NEGATIVE) H Urine Glucose (UA) Negative (NEGATIVE) Urine Ketones Negative (NEGATIVE) Urine Blood 2+ (NEGATIVE) H Urine Nitrite Negative (NEGATIVE) Urine Bilirubin Negative (NEGATIVE) Urine Urobilinogen Normal MG/DL (0.0-1.0) Urine Leukocyte Esterase Negative (NEGATIVE) Urine RBC 2-4 /HPF (0 - 0) H Urine WBC 0 /HPF (0 - 0) Urine Squamous Epithelial Cells Occasional /LPF Urine Bacteria Occasional /HPF (NONE) Microbiology Date/Time Source Procedure Growth Status 06/14/20 11:25 Nasopharynx SARS-CoV-2 RdRp Gene Assay - Final Complete Assessment/Plan Assessment/Plan Rec GI Bleed Chronic DVT of LE's Schizoaff dis COPD Dementia Hold any anticoag or antiplt rx Check V duplex Serial Hb PPI prn bronchodil rx by inhalation Shaw Abraham MD Jun 15, 2020 10:33
--- NOTE | 2020-06-15 11:52 | Consultation ---
History of Present Illness General Date patient seen: Jun 15, 2020 Reason for Hospitalization: Gastrointestinal Bleed Present Illness HPI this is a pleasant 85-year-old male history of schizophrenia, parkinsonism, DVT, GI bleed presents for evaluation of coffee-ground emesis. According to documentation the patient had multiple episodes of emesis with dark appearing material in them. History of schizophrenia and dementia cannot obtain information from patient at this time there he does state that he is not in any physical discomfort. He does not feel nauseous. Patient previously admitted for GI bleed but endoscopy could not be performed. He is on 40 mg Protonix PPI. Received Covid vaccine on 06/12. Recently tested negative for COVID-19 on 06/08. surgery called to evaluate for gi bleed Allergies: Coded Allergies: PORK/PORCINE CONTAINING PRODUCTS (Verified Allergy, Mild, 08/03/11) COVID-19 Screening Contact w/high risk pt: Yes Experienced COVID-19 symptoms?: No Medication History Scheduled Amoxicillin/Potassium Clav 500-125 Tablet* (Augmentin 500-125 Tablet*), 1 TAB ORAL BID Ascorbic Acid* (Vitamin C*), 500 MG ORAL DAILY, (Reported) Benztropine Mesylate* (Benztropine Mesylate*), 1 MG ORAL DAILY, (Reported) Ergocalciferol (Vitamin D2) (Vitamin D2), 50 MCG PO QWEEK, (Reported) Haloperidol Decanoate (Haldol Decanoate 50), 25 MG IM MONTHLY, (Reported) Mag Hydrox/Aluminum Hyd/Simeth (Mylanta Maximum Strength Liq), 30 ML PO Q4HR, (Reported) Metoprolol Succinate* (Metoprolol Succinate*), 50 MG ORAL DAILY, (Reported) Multivitamin Liquid* (Multi-Delyn*), 5 ML GT DAILY, (Reported) Olanzapine* (Zyprexa*), 5 MG ORAL DAILY, (Reported) Pantoprazole* (Protonix*), 40 MG ORAL DAILY Valproic Acid (Valproic Acid), 500 MG ORAL Q12HR Scheduled PRN Acetaminophen* (Acetaminophen 325MG Tablet*), 650 MG ORAL Q4H PRN for Mild Pain/Temp > 100.5, (Reported) Magnesium Hydroxide (Milk of Magnesia), 30 ML PO QHS PRN for Constipation, (Reported) Miscellaneous Medications Valproate Sodium (Valproic Acid), 500 MG PO, (Reported) Patient History Limited by: age, medical condition History Provided By: Patient, Medical Record, PMD Healthcare decision maker Resuscitation status Advanced Directive on File Past Medical/Surgical History Past Medical/Surgical History: (1) 78197 (2) 83707 (3) Cellulitis (4) Lactic acid acidosis (5) Failure to thrive (6) Gastroenteritis (7) Schizophrenia (8) Esophagitis (9) Hiatal hernia (10) Gastritis (11) Pneumonia (12) Sepsis (13) PNA (pneumonia) (14) Fever (15) Coffee ground emesis Review of Systems Review of Symptoms General ROS: no weight loss or fever Psychological ROS: no depression or mood changes, no memory loss Ophthalmic ROS: no visual changes or eye irritation ENT ROS: no nasal congestion, hearing loss, dizziness Allergy and Immunology ROS: no allergic symptoms or urticaria Hematological and Lymphatic ROS: no swollen glands, unusual bleeding or bruising Endocrine ROS: no polyuria, polydipsia, weight changes, temperature intolerance Respiratory ROS: no cough, shortness of breath, or wheezing Cardiovascular ROS: no chest pain or dyspnea on exertion Gastrointestinal ROS: denies abdominal pain, bright red blood in stool. Musculoskeletal ROS: no myalgias or arthralgias Neurological ROS: no TIA or stroke symptoms Dermatological ROS: no new or changing skin lesions, rashes or pruritis Physical Exam Physical Exam General appearance: alert, cooperative, no distress, appears stated age Head: Normocephalic, without obvious abnormality, atraumatic Eyes: conjunctivae/corneas clear. PERRL, EOM's intact. Fundi benign Throat: Lips, mucosa, and tongue normal. Teeth and gums normal Neck: supple, symmetrical, trachea midline, no adenopathy, thyroid: not enlarged, symmetric, no tenderness/mass/nodules, no carotid bruit and no JVD Lungs: clear to auscultation bilaterally Heart: regular rate and rhythm, S1, S2 normal, no murmur, click, rub or gallop Abdomen: soft, non-tender. Bowel sounds normal. No masses, no organomegaly Extremities: extremities normal, atraumatic, no cyanosis or edema Pulses: 2+ and symmetric Skin: Skin color, texture, turgor normal. No rashes or lesions Neurologic: Grossly normal Last 24 Hour Vital Signs Date Time Temp Pulse Resp B/P (MAP) Pulse Ox O2 Delivery O2 Flow Rate FiO2 1/9/21 09:00 Room Air 06/15/20 08:00 97.9 73 16 124/63 (83) 96 06/15/20 08:00 59 06/15/20 04:00 74 06/15/20 04:00 98.1 77 19 135/71 (92) 96 06/15/20 00:00 69 06/15/20 00:00 97.8 74 18 141/82 (101) 96 06/14/20 21:00 Room Air 06/14/20 20:00 97.3 78 17 138/85 (102) 99 06/14/20 20:00 82 06/14/20 18:19 Room Air 06/14/20 17:24 97.8 86 20 100/60 98 Room Air 06/14/20 16:13 97.8 100 18 95/60 98 Room Air 06/14/20 13:54 100.3 100 19 84/56 98 Room Air 06/14/20 13:08 100.6 06/14/20 12:30 102.7 06/14/20 12:03 86 18 Room Air 06/14/20 12:01 98.0 86 18 124/80 98 Room Air Intake and Output 06/14/20 06/15/20 19:00 07:00 Output Total 460 ml Balance -460 ml Output Urine Total 460 ml # Voids 1 # Bowel Movements 1 Laboratory Tests Test 06/14/20 12:30 Urine Color Yellow Urine Appearance Clear Urine pH 6.5 (4.5-8.0) Urine Specific [place] 1.015 (1.005-1.035) Urine Protein 1+ (NEGATIVE) H Urine Glucose (UA) Negative (NEGATIVE) Urine Ketones Negative (NEGATIVE) Urine Blood 2+ (NEGATIVE) H Urine Nitrite Negative (NEGATIVE) Urine Bilirubin Negative (NEGATIVE) Urine Urobilinogen Normal MG/DL (0.0-1.0) Urine Leukocyte Esterase Negative (NEGATIVE) Urine RBC 2-4 /HPF (0 - 0) H Urine WBC 0 /HPF (0 - 0) Urine Squamous Epithelial Cells Occasional /LPF Urine Bacteria Occasional /HPF (NONE) Height (Feet): 5 Height (Inches): 6.00 Weight (Pounds): 135 Medications Current Medications Medications (Trade) Dose Ordered Sig/Ji Route PRN Reason Start Time Stop Time Status Last Admin Dose Admin Acetaminophen (Tylenol) 650 mg Q4H PRN ORAL Mild Pain (Pain Scale 1-3) 06/14/20 18:15 07/14/20 18:14 Acetaminophen (Tylenol) 650 mg Q4H PRN ORAL Temp >100.5 06/14/20 18:30 07/14/20 18:29 Ascorbic Acid (Vitamin C) 500 mg DAILY ORAL 06/15/20 09:00 07/15/20 08:59 Barium Sulfate (Readi-Cat 2) 450 ml NOW PRN ORAL Radiology Procedure 06/14/20 18:30 06/16/20 18:29 Benztropine Mesylate (Cogentin) 1 mg DAILY ORAL 06/15/20 09:00 07/15/20 08:59 Magnesium Hydroxide (Mom) 30 ml HSPRN PRN ORAL Constipation 06/14/20 18:15 07/14/20 18:14 Metoprolol Succinate (Toprol XL) 50 mg DAILY ORAL 06/15/20 09:00 09/13/20 08:59 Olanzapine (ZyPREXA) 5 mg DAILY ORAL 06/15/20 09:00 07/30/20 08:59 Pantoprazole (Protonix) 40 mg EVERY 12 HOURS IVP 06/14/20 21:00 07/14/20 20:59 06/14/20 20:50 Piperacillin Sod/ Tazobactam Sod 3.375 gm/Sodium Chloride 110 ml @ 27.5 mls/hr Q8H IVPB 06/14/20 20:00 06/21/20 19:59 06/15/20 05:50 Valproic Acid (Depakene) 500 mg Q12HR ORAL 06/14/20 21:00 07/29/20 20:59 06/14/20 20:51 Assessment/Plan Problem List: (1) Fever ICD Codes: R50.9 - Fever, unspecified SNOMED: 340536964 (2) Coffee ground emesis Assessment & Plan: This is a pleasantly 85-year-old male with multimedical comorbidities who presents with coffee-ground emesis admitted for evaluation of GI bleed. patient is febrile 102, abnormal labs, hemoglobin stable. No active bleeding at this time noted. Abdominal exam is benign at this time. No acute bleeding noted Trend H&H GI eval possible endoscopy Okay for diet from surgical standpoint We will follow with examination Darinel thank you let me participate patient's care ICD Codes: K92.0 - Hematemesis SNOMED: 82374072 (3) Esophagitis ICD Codes: K20.90 - Esophagitis, unspecified without bleeding SNOMED: 07132219 (4) Hiatal hernia ICD Codes: K44.9 - Diaphragmatic hernia without obstruction or gangrene SNOMED: 99228614 (5) Cellulitis (6) 07355 (7) Failure to thrive SNOMED: 15552616 (8) Gastritis ICD Codes: K29.70 - Gastritis, unspecified, without bleeding SNOMED: 2793014 (9) Gastroenteritis ICD Codes: K52.9 - Noninfective gastroenteritis and colitis, unspecified SNOMED: 59654697 (10) Schizophrenia (11) 14100 (12) Sepsis ICD Codes: A41.9 - Sepsis, unspecified organism SNOMED: 06796706 (13) Pneumonia ICD Codes: J18.9 - Pneumonia, unspecified organism SNOMED: 374128284 (14) Lactic acid acidosis ICD Codes: E87.2 - Acidosis SNOMED: 82401534 (15) PNA (pneumonia) ICD Codes: J18.9 - Pneumonia, unspecified organism SNOMED: 030288645 Julisu De La Torre Jun 15, 2020 11:52
[2020-06-15 12:00] VITALS: BP 128/81
--- NOTE | 2020-06-15 13:44 | Consultation ---
DATE OF CONSULTATION: 06/14/2020 CARDIOLOGY CONSULTATION CONSULTING PHYSICIAN: Shaw Abraham MD. REQUESTING PHYSICIAN: Alexis Crandall MD. REASON FOR CONSULTATION: Management of DVT in the setting of acute GI bleeding. HISTORY OF PRESENT ILLNESS: This is an 85-year-old male, who resides in a psychiatric locked facility. He has had recurring bleeding from his GI tract manifesting with coffee-ground emesis and fevers on this occasion. He also has a history of DVT. ALLERGIES: Include pork. MEDICATIONS: Reviewed and reconciled. PAST MEDICAL HISTORY: Chronic DVT, recurring GI bleed, schizophrenia, COPD. FAMILY HISTORY: Not known. SOCIAL HISTORY: Prior smoker. No alcohol or substance abuse. REVIEW OF SYSTEMS: Not obtainable. PHYSICAL EXAMINATION: VITAL SIGNS: Blood pressure 124/63, pulse 72, respiratory rate 16, afebrile. LUNGS: Clear. NECK: Supple. Jugular venous pressure normal. CARDIAC: Regular rhythm and rate. Normal S1, S2 with no murmur. ABDOMEN: Soft. No focal tenderness, guarding or rebound. EXTREMITIES: No edema or calf tenderness or . NEUROLOGIC: Nonfocal with no dyskinesias. DIAGNOSTIC AND LABORATORY DATA: Chest x-ray, no acute process. Hemoglobin 14. EKG pending. IMPRESSION: 1. Recurring GI bleeding. 2. Stable hemoglobin. 3. COPD with no active bronchospasm. 4. Chronic DVT. 5. Fever of unclear etiology. PLAN: Proton-pump inhibitor. Antimicrobials. Conservative management. No anticoagulants at this time. Venous duplex to assess status of prior DVT. Shaw Abraham M.D. : ABILIO JOB#: [id number] CC:
[2020-06-15 16:00] VITALS: BP 126/66
--- NOTE | 2020-06-15 17:00 | Diagnostic Imaging Report ---
EXAM: CT Abdomen and Pelvis Without Intravenous Contrast CLINICAL HISTORY: VOMITING TECHNIQUE: Axial computed tomography images of the abdomen and pelvis without intravenous contrast. CTDI is 5.10 mGy and DLP is 289.80 mGy-cm. One or more of the following dose reduction techniques were used: automated exposure control, adjustment of the mA and/or kV according to patient size, use of iterative reconstruction technique. COMPARISON: 05/28/2020 FINDINGS: Lung bases: Persistent patchy bibasilar groundglass opacities. Bibasilar atelectasis or scar. ABDOMEN: Liver: No significant abnormality. Gallbladder and bile ducts: Cholelithiasis. Pancreas: No significant abnormality. Spleen: No significant abnormality. Adrenals: No significant abnormality. Kidneys and ureters: Small bilateral hypoattenuating renal lesions, likely cysts. No hydronephrosis. Stomach and bowel: No significant abnormality. Bowel is nondilated. PELVIS: Appendix: No findings to suggest acute appendicitis. Bladder: No significant abnormality. No calcified stones. Reproductive: Unremarkable as visualized. ABDOMEN and PELVIS: Intraperitoneal space: No significant abnormality. No free air. Bones/joints: No acute fracture or malalignment. Soft tissues: No significant abnormality. Vasculature: Aortic atherosclerosis. No abdominal aortic aneurysm. Lymph nodes: No significant abnormality. IMPRESSION: 1. Cholelithiasis. 2. Persistent nonspecific patchy bibasilar groundglass opacities may be infectious or inflammatory.
--- NOTE | 2020-06-15 19:20 | NUR ---
NURSE HAND-OFF REPORT: Important Events on Shift:[CT A/P, refusing PO meds] Patient Status: [FULL CODE/stable] Diet: [clears] Pending Orders: [] Pending Results/Labs:[] Pending MD notification:[] Latest Vital Signs: Temperature 96.8 , Pulse 77 , B/P 126 /66 , Respiratory Rate 18 , O2 SAT 97 , Room Air, O2 Flow Rate . Vital Sign Comment: [] EKG Rhythm: Sinus Rhythm Rhythm change?: N MD Notified?: - MD Response: Latest [place] Fall Score: 35 Fall Risk: Medium Risk Safety Measures: Call light Within Reach, Bed Alarm Zone 1, Side Rails Side Rails x2, Bed position Low and Locked. Fall Precautions: Yellow Socks Yellow Gown Door Sign Patient Fall Education Report given to [Brittney RN].
--- NOTE | 2020-06-15 19:30 | NUR ---
NURSE NOTES: The patient is presently sleeping and is on room air with respiration even and unlabored.The skin is clear with capillary refill <3 secs. The patient has a Right AC 20g that is intact and asymptomatic.The bed in low level, call light within easy reach and siderails up x2. Will continue to monitor as indicated.
[2020-06-15 20:00] VITALS: BP 128/65
[2020-06-16] VITALS: BP 119/57
[2020-06-16] MEDS: Piperacillin/Tazobactam 3.375 GM in NS 110 ML IVPB SCH ×3 (03:46→20:42)
[2020-06-16 04:00] VITALS: BP 116/58
--- NOTE | 2020-06-16 07:14 | NUR ---
NURSE HAND-OFF REPORT: Important Events on Shift:Alert and stable.To be tranfer to [place] Patient Status: Diet: Pending Orders: Pending Results/Labs: Pending MD notification: Latest Vital Signs: Temperature 98.1 , Pulse 76 , B/P 116 /58 , Respiratory Rate 17 , O2 SAT 96 , Room Air, O2 Flow Rate . Vital Sign Comment: EKG Rhythm: Sinus Rhythm Rhythm change?: N MD Notified?: - MD Response: Latest [place] Fall Score: 35 Fall Risk: Medium Risk Safety Measures: Call light Within Reach, Bed Alarm Zone 1, Side Rails Side Rails x2, Bed position Low and Locked. Fall Precautions: Yellow Socks Yellow Gown Door Sign Patient Fall Education Report given to .
--- NOTE | 2020-06-16 07:30 | NUR ---
NURSE NOTES: Received patient in bed. Awake, alert x1. On room air, respirations unlabored. IV in the Right AC, site intact. Bed low and locked, side rails up x2, bed alarm, call light within reach - unable to return demonstration.
[2020-06-16 08:00] VITALS: BP 103/60
[2020-06-16] MEDS: Pantoprazole Inj IVP SCH ×2 (09:00→20:43)
[2020-06-16] MEDS: Ascorbic Acid 500mg tab ORAL SCH (09:00)
[2020-06-16] MEDS: Metoprolol Succinate XL 50mg tab ORAL SCH (09:00)
[2020-06-16] MEDS: Benztropine 1mg tab ORAL SCH (09:00)
[2020-06-16 12:00] VITALS: BP 117/60
--- NOTE | 2020-06-16 12:00 | General Progress Note ---
Subjective ROS Limited/Unobtainable: No Constitutional: Reports: malaise, weakness HEENT: Reports: no symptoms Cardiovascular: Reports: no symptoms Respiratory: Reports: no symptoms Gastrointestinal/Abdominal: Reports: vomiting Genitourinary: Reports: no symptoms Neurologic/Psychiatric: Reports: no symptoms Endocrine: Reports: no symptoms Hematologic/Lymphatic: Reports: no symptoms Allergies: Coded Allergies: PORK/PORCINE CONTAINING PRODUCTS (Verified Allergy, Mild, 08/03/11) All Systems: reviewed and negative except above Subjective no events. w/o complaints. refusing labs. CT with patchy infiltrates. no cough. no melena or brbpr. no hematemsis Objective Last 24 Hour Vital Signs Date Time Temp Pulse Resp B/P (MAP) Pulse Ox O2 Delivery O2 Flow Rate FiO2 06/16/20 09:00 Room Air 06/16/20 08:00 97.7 72 16 103/60 (74) 95 06/16/20 04:00 62 06/16/20 04:00 98.1 76 17 116/58 (77) 96 06/16/20 00:00 98.3 73 18 119/57 (77) 94 06/16/20 00:00 62 06/15/20 21:00 Room Air 06/15/20 20:00 77 06/15/20 20:00 98.5 70 18 128/65 (86) 95 06/15/20 16:00 96.8 59 18 126/66 (86) 97 06/15/20 16:00 77 06/15/20 12:00 98.1 74 17 128/81 (97) 96 06/15/20 12:00 66 Intake and Output 06/15/20 06/16/20 19:00 07:00 Intake Total 360 ml Output Total 400 ml 150 ml Balance -400 ml 210 ml Intake Oral 360 ml Output Urine Total 400 ml 150 ml # Voids 2 # Bowel Movements 1 1 Height (Feet): 5 Height (Inches): 6.00 Weight (Pounds): 135 General Appearance: WD/WN, alert EENT: PERRL/EOMI Neck: supple Cardiovascular: normal rate Respiratory/Chest: lungs clear Abdomen: normal bowel sounds, non tender, soft, no organomegaly Edema: no edema noted Arm (L), no edema noted Arm (R), no edema noted Leg (L), no edema noted Leg (R) Assessment/Plan Problem List: (1) Fever ICD Codes: R50.9 - Fever, unspecified SNOMED: 822447808 (2) Coffee ground emesis ICD Codes: K92.0 - Hematemesis SNOMED: 61145164 (3) Schizophrenia (4) Pneumonia ICD Codes: J18.9 - Pneumonia, unspecified organism SNOMED: 182747543 (5) Sepsis ICD Codes: A41.9 - Sepsis, unspecified organism SNOMED: 61142087 Status: stable Assessment/Plan: iv abx id eval resp care monitor for bleeding compliance stressed. PPI rx anxiolytics psych rx Alexis Crandall MD Jun 16, 2020 12:00
--- NOTE | 2020-06-16 13:34 | Surgery Progress Note ---
Surgery Progress Note Subjective Additional Comments respiratory stable supplement prn no n/v aaox1 pending labs if patient will allow no active bleeding no n/v Objective Last 24 Hour Vital Signs Date Time Temp Pulse Resp B/P (MAP) Pulse Ox O2 Delivery O2 Flow Rate FiO2 06/16/20 09:00 Room Air 06/16/20 08:00 97.7 72 16 103/60 (74) 95 06/16/20 04:00 62 06/16/20 04:00 98.1 76 17 116/58 (77) 96 06/16/20 00:00 98.3 73 18 119/57 (77) 94 06/16/20 00:00 62 06/15/20 21:00 Room Air 06/15/20 20:00 77 06/15/20 20:00 98.5 70 18 128/65 (86) 95 06/15/20 16:00 96.8 59 18 126/66 (86) 97 06/15/20 16:00 77 I&O Intake and Output 06/15/20 06/16/20 19:00 07:00 Intake Total 360 ml Output Total 400 ml 150 ml Balance -400 ml 210 ml Intake Oral 360 ml Output Urine Total 400 ml 150 ml # Voids 2 # Bowel Movements 1 1 Dressing: saturated Cardiovascular: RSR Respiratory: decreased breath sounds Abdomen: non-tender, present bowel sounds Extremities: no edema, no tenderness, no cyanosis Plan Problems: (1) Fever (2) Coffee ground emesis Assessment & Plan: This is a pleasantly 85-year-old male with multimedical comorbidities who presents with coffee-ground emesis admitted for evaluation of GI bleed. patient is febrile 102, abnormal labs, hemoglobin stable. No active bleeding at this time noted. Abdominal exam is benign at this time. No acute bleeding noted Trend H&H GI eval possible endoscopy Okay for diet from surgical standpoint We will follow with examination Darinel thank you let me participate patient's care (3) Esophagitis (4) Hiatal hernia (5) Cellulitis (6) 45235 (7) Failure to thrive (8) Gastritis (9) Gastroenteritis (10) Schizophrenia (11) 28419 (12) Sepsis (13) Pneumonia (14) Lactic acid acidosis (15) PNA (pneumonia) Julius De La Torre Jun 16, 2020 13:34
[2020-06-16 16:00] VITALS: BP 126/67
--- NOTE | 2020-06-16 19:34 | NUR ---
NURSE HAND-OFF REPORT: Important Events on Shift:[refusing all meds] Patient Status: [FULL CODE/stable] Diet: [clears] Pending Orders: [] Pending Results/Labs:[] Pending MD notification:[] Latest Vital Signs: Temperature 97.8 , Pulse 76 , B/P 126 /67 , Respiratory Rate 17 , O2 SAT 96 , Room Air, O2 Flow Rate . Vital Sign Comment: [] EKG Rhythm: Sinus Rhythm Rhythm change?: N MD Notified?: - MD Response: Latest [place] Fall Score: 35 Fall Risk: Medium Risk Safety Measures: Call light Within Reach, Bed Alarm Zone 1, Side Rails Side Rails x2, Bed position Low and Locked. Fall Precautions: Yellow Socks Yellow Gown Door Sign Patient Fall Education Report given to [Navi RN].
--- NOTE | 2020-06-16 19:36 | NUR ---
NURSE NOTES: Received patient in bed. Awake, alert x1, confused. On room air, respirations even and unlabored. IV on the Right AC, site intact, asymptomatic. Bed is in lowest and locked position, side rails up x2, bed alarm on, call light within reach. will continue to monitor
[2020-06-16 20:00] VITALS: BP 114/62
--- NOTE | 2020-06-16 20:00 | NUR ---
NURSE NOTES: Noted pressure sores, primarily dti's on back, feet and sacrum, incontinent and excoriated around bottom, process plan created and wound care protocol will be followed
[2020-06-17] VITALS: BP_SYST 110; BP_SYST 118; BP_DIAS 60; BP_DIAS 81
--- NOTE | 2020-06-17 00:26 | Cardiology Progress Note ---
Subjective DATE OF SERVICE: Jun 16, 2020 No distress Refuses care at times. CT scan: bilateral patchy infiltrates Objective Last 24 Hour Vital Signs Date Time Temp Pulse Resp B/P (MAP) Pulse Ox O2 Delivery O2 Flow Rate FiO2 06/16/20 16:00 97.8 76 17 126/67 (86) 96 06/16/20 12:00 97.8 68 16 117/60 (79) 97 06/16/20 09:00 Room Air 06/16/20 08:00 97.7 72 16 103/60 (74) 95 06/16/20 04:00 62 06/16/20 04:00 98.1 76 17 116/58 (77) 96 ROS: no update to prior evaluation HEENT: normal ENT inspection RHYTHM: NSR LUNGS: lungs clear bilaterally CARDIAC: normal rate, regular rhythm, normal S1 and S2 ABDOMEN: normal bowel sounds, non tender, soft, no organomegaly EXTREMITIES: normal range of motion, No edema Microbiology Date/Time Source Procedure Growth Status 06/14/20 11:45 Blood Blood Culture - Preliminary NO GROWTH AFTER 24 HOURS Resulted 06/14/20 11:40 Blood Blood Culture - Preliminary NO GROWTH AFTER 24 HOURS Resulted 06/14/20 11:25 Nasopharynx SARS-CoV-2 RdRp Gene Assay - Final Complete Assessment/Plan Assessment/Plan Rec GI Bleed Chronic DVT of LE's Schizoaff dis COPD Dementia Hold any anticoag or antiplt rx Antimicrobials per ID Check V duplex Serial Hb PPI prn bronchodil rx by inhalation Shaw Abraham MD Jun 17, 2020 00:26
[2020-06-17] MEDS: Piperacillin/Tazobactam 3.375 GM in NS 110 ML IVPB SCH ×3 (02:51→20:21)
[2020-06-17 04:20] VITALS: BP 121/70
--- NOTE | 2020-06-17 07:54 | NUR ---
NURSE HAND-OFF REPORT: Important Events on Shift:let me get him cleaned, had been refusing everything previously, clean dry condom cath applied, refused one med Patient Status: [FULL CODE/stable] Diet: [clear liquids] Pending Orders: labs to be drawn Latest Vital Signs: Temperature 97.8 , Pulse 76 , B/P 126 /67 , Respiratory Rate 17 , O2 SAT 96 , Room Air, O2 Flow Rate . Vital Sign Comment: [] EKG Rhythm: Sinus Rhythm Rhythm change?: N MD Notified?: - MD Response: Latest [place] Fall Score: 35 Fall Risk: Medium Risk Safety Measures: Call light Within Reach, Bed Alarm Zone 1, Side Rails Side Rails x2, Bed position Low and Locked. Fall Precautions: Yellow Socks Yellow Gown Door Sign Patient Fall Education
[2020-06-17 08:00] VITALS: BP 120/72
--- NOTE | 2020-06-17 08:30 | NUR ---
NURSE NOTES: Recvd pt. pt is AOx1 and confused. Pt is on room air, respirations are even and unlabored, no sign of sob or resp distress. monitor worker on. IV on the Right AC, site intact, asymptomatic. Bed is in lowest and locked position, side rails up x2, bed alarm on, call light within reach. will continue to monitor
[2020-06-17] MEDS: Pantoprazole Inj IVP SCH ×2 (08:55→20:21)
[2020-06-17] MEDS: Benztropine 1mg tab ORAL SCH (08:55)
[2020-06-17] MEDS: Ascorbic Acid 500mg tab ORAL SCH (08:56)
[2020-06-17] MEDS: Metoprolol Succinate XL 50mg tab ORAL SCH (09:00)
--- NOTE | 2020-06-17 10:59 | Cardiology Report ---
APPROVED REPORT EKG Measurement Heart [id number] [place] 158P [id number] <Conclusion> Normal sinus rhythm Left anterior fascicular block Minimal voltage criteria for LVH, may be normal variant Abnormal ECG
--- NOTE | 2020-06-17 11:59 | Consultation ---
DATE OF CONSULTATION: 06/17/2020 INFECTIOUS DISEASES CONSULTATION CONSULTING PHYSICIAN: Micheal Drake MD REFERRING PHYSICIAN: Alexis Crandall MD REASON FOR CONSULTATION: Fever and pneumonia. HISTORY OF PRESENTING ILLNESS: This is an 85-year-old gentleman with history of schizophrenia, DVT, GI bleeding who comes in with fevers and coffee-grounds emesis. He was found to have a pneumonia and an Infectious Diseases consultation has been obtained for antibiotics. PAST MEDICAL HISTORY: 1. History of schizophrenia. 2. DVT. 3. GI bleeding. SOCIAL HISTORY: No history of smoking, alcohol, or drug use. FAMILY HISTORY: Unknown. REVIEW OF SYSTEMS: Unable to obtain currently. MEDICATIONS: As an inpatient, he is on olanzapine, metoprolol, Cogentin, ascorbic acid, Protonix, valproic acid, Zosyn, Tylenol, milk of magnesia. ALLERGIES: To pork noted. PHYSICAL EXAMINATION: VITAL SIGNS: Temperature 98.1, T-max of 98.7, pulse of 76, respiratory rate 18, blood pressure 120/72, O2 saturation of 97% on room air. Examination deferred due to possibility of COVID-19. LABORATORY AND DIAGNOSTIC DATA: White count 6.3, hemoglobin 14.9, hematocrit 46.6, MCV 100, platelet count of 328 with neutrophils of 81%. Sodium , potassium 4.2, chloride 101, bicarb 35, BUN 26, creatinine 1.3, glucose 133, calcium 9.3. Total bilirubin 0.5, AST 26, ALT 15, alkaline phosphatase 53. Troponin 0.005. Total protein 8.3, albumin 3.3, lipase of 135. UA is showing 0 white cells. Blood cultures are negative. COVID-19 rapid test is negative. Rectal swab was negative for VRE. Chest x-ray is showing nonspecific interstitial prominence. CT abdomen and pelvis showing cholelithiasis, persistent nonspecific patchy basilar ground-glass opacities noted. ASSESSMENT: This is an 85-year-old gentleman with history of schizophrenia as well as DVT and GI bleeding who comes in with fevers and coffee-grounds emesis and is found to have: 1. Possible aspiration pneumonia. His rapid COVID test is negative. 2. Schizophrenia. 3. GI bleeding. PLAN: 1. Continue Zosyn. 2. We will order COVID-19 test. 3. We will follow up clinically. 4. Continue isolation. I would like to thank, Dr. Crandall, for this consultation. Micheal Drake M.D. DR: Dorcas JOB#: [id number] CC: Alexis Crandall M.D.
[2020-06-17 12:00] VITALS: BP 113/64
--- NOTE | 2020-06-17 13:30 | NUR ---
CABLE OPERATORCONFERENCE PLANNING MANAGER SI: PNA,FEVER T. 97.5 HR 67 RR 17 B/P 118/87 RA 98% IS: ZOSYN IV ZYPREXA PO PROTONIX IV COVID PCR [facility] ISOLATION TELE STATUS
[2020-06-17 15:47] VITALS: BP 129/70
--- NOTE | 2020-06-17 18:51 | Surgery Progress Note ---
Surgery Progress Note Subjective Symptoms: passing flatus, BM Additional Comments confused micro noted no active bleeding identified +flatus no emesis pending labs Objective Last 24 Hour Vital Signs Date Time Temp Pulse Resp B/P (MAP) Pulse Ox O2 Delivery O2 Flow Rate FiO2 06/17/20 15:47 97.9 72 18 129/70 (89) 98 06/17/20 12:00 98.1 62 18 113/64 (80) 95 06/17/20 09:00 76 120/72 06/17/20 09:00 Room Air 06/17/20 08:00 98.1 70 18 120/72 (88) 97 06/17/20 04:20 98.7 59 17 121/70 (87) 94 06/17/20 00:00 97.5 67 17 118/81 (93) 97 06/16/20 21:00 Room Air 06/16/20 20:00 97.7 71 18 114/62 (79) 96 I&O Intake and Output 06/16/20 06/17/20 19:00 07:00 Intake Total 400 ml 360 ml Balance 400 ml 360 ml Intake Oral 400 ml Other 360 ml # Voids 2 2 # Bowel Movements 1 1 Cardiovascular: RSR Respiratory: clear, decreased breath sounds Abdomen: soft, non-tender, present bowel sounds, non-distended Extremities: no edema, no tenderness, no cyanosis Plan Problems: (1) Fever (2) Coffee ground emesis Assessment & Plan: This is a pleasantly 85-year-old male with multimedical comorbidities who presents with coffee-ground emesis admitted for evaluation of GI bleed. patient is febrile 102, abnormal labs, hemoglobin stable. No active bleeding at this time noted. Abdominal exam is benign at this time. No acute bleeding noted Trend H&H GI eval possible endoscopy Okay for diet from surgical standpoint We will follow with examination Darinel thank you let me participate patient's care (3) Esophagitis (4) Hiatal hernia (5) Cellulitis (6) 90628 (7) Failure to thrive (8) Gastritis (9) Gastroenteritis (10) Schizophrenia (11) 91291 (12) Sepsis (13) Pneumonia (14) Lactic acid acidosis (15) PNA (pneumonia) Julius De La Torre Jun 17, 2020 18:51
--- NOTE | 2020-06-17 19:00 | General Progress Note ---
Subjective ROS Limited/Unobtainable: No Constitutional: Reports: malaise, weakness HEENT: Reports: no symptoms Cardiovascular: Reports: no symptoms Respiratory: Reports: no symptoms Gastrointestinal/Abdominal: Reports: no symptoms Genitourinary: Reports: no symptoms Neurologic/Psychiatric: Reports: anxiety, emotional problems Endocrine: Reports: no symptoms Hematologic/Lymphatic: Reports: no symptoms Allergies: Coded Allergies: PORK/PORCINE CONTAINING PRODUCTS (Verified Allergy, Mild, 08/03/11) All Systems: reviewed and negative except above Subjective no events. w/o complaints. refusing labs. CT with patchy infiltrates. no cough. no melena or brbpr. no hematemsis not complaint with labs or orall meds. Objective Last 24 Hour Vital Signs Date Time Temp Pulse Resp B/P (MAP) Pulse Ox O2 Delivery O2 Flow Rate FiO2 06/17/20 15:47 97.9 72 18 129/70 (89) 98 06/17/20 12:00 98.1 62 18 113/64 (80) 95 06/17/20 09:00 76 120/72 06/17/20 09:00 Room Air 06/17/20 08:00 98.1 70 18 120/72 (88) 97 06/17/20 04:20 98.7 59 17 121/70 (87) 94 06/17/20 00:00 97.5 67 17 118/81 (93) 97 06/16/20 21:00 Room Air 06/16/20 20:00 97.7 71 18 114/62 (79) 96 Intake and Output 06/16/20 06/17/20 19:00 07:00 Intake Total 400 ml 360 ml Balance 400 ml 360 ml Intake Oral 400 ml Other 360 ml # Voids 2 2 # Bowel Movements 1 1 Height (Feet): 5 Height (Inches): 6.00 Weight (Pounds): 135 Assessment/Plan Problem List: (1) Fever ICD Codes: R50.9 - Fever, unspecified SNOMED: 540055787 (2) Coffee ground emesis ICD Codes: K92.0 - Hematemesis SNOMED: 41420275 (3) Schizophrenia (4) Pneumonia ICD Codes: J18.9 - Pneumonia, unspecified organism SNOMED: 653960063 (5) Sepsis ICD Codes: A41.9 - Sepsis, unspecified organism SNOMED: 20760831 Status: stable Assessment/Plan: iv abx id eval appreciated follow up covid test resp care monitor for bleeding compliance stressed. PPI rx anxiolytics psych rx Alexis Crandall MD Jun 17, 2020 19:00
--- NOTE | 2020-06-17 19:40 | NUR ---
NURSE NOTES: Received report from LUIS Foley. Transferred from tele. AAO x 1-2, confused, on RA. IV site intact and patent. Wound pic taken. All belongings reviewed. Vitals stable. Denies pain or discomfort. Bed locked,lowest position, alarm on, side rails up, call light within reach. will continue to monitor.
[2020-06-17 20:00] VITALS: BP 123/71
[2020-06-18] VITALS: BP 100/55
--- NOTE | 2020-06-18 00:21 | Cardiology Progress Note ---
Subjective DATE OF SERVICE: Jun 17, 2020 No distress; occasional cough with low grade temps. Refuses care at times. CT scan: bilateral patchy infiltrates Objective Last 24 Hour Vital Signs Date Time Temp Pulse Resp B/P (MAP) Pulse Ox O2 Delivery O2 Flow Rate FiO2 06/17/20 21:00 Room Air 06/17/20 20:00 99.1 71 20 123/71 (88) 94 06/17/20 15:47 97.9 72 18 129/70 (89) 98 06/17/20 12:00 98.1 62 18 113/64 (80) 95 06/17/20 09:00 76 120/72 06/17/20 09:00 Room Air 06/17/20 08:00 98.1 70 18 120/72 (88) 97 06/17/20 04:20 98.7 59 17 121/70 (87) 94 ROS: no update to prior evaluation HEENT: normal ENT inspection RHYTHM: NSR LUNGS: lungs clear bilaterally CARDIAC: normal rate, regular rhythm, normal S1 and S2 ABDOMEN: normal bowel sounds, non tender, soft, no organomegaly EXTREMITIES: normal range of motion, No edema Assessment/Plan Assessment/Plan Rec GI Bleed Chronic DVT of LE's Schizoaff dis COPD Dementia Hold any anticoag or antiplt rx Antimicrobials per ID Check V duplex Serial Hb PPI prn bronchodil rx by inhalation Shaw Abraham MD Jun 18, 2020 00:21
[2020-06-18] MEDS: Piperacillin/Tazobactam 3.375 GM in NS 110 ML IVPB SCH ×3 (03:43→20:34)
[2020-06-18 04:00] VITALS: BP 101/59
--- NOTE | 2020-06-18 06:55 | NUR ---
NURSE HAND-OFF: Important Events on Shift:transferred, no active GI bleeding Patient Status: stable Diet: clear liq Pending Orders: Pending Results/Labs:am labs Pending MD notification: Latest Vital Signs: Temperature 98.7 , Pulse 64 , B/P 101 /59 , Respiratory Rate 20 , O2 SAT 95 , Room Air, O2 Flow Rate . Vital Sign Comment: [] Latest [place] Fall Score: 35 Fall Risk: Medium Risk Safety Measures: Call light Within Reach, Bed Alarm Zone 1, Side Rails Side Rails x2, Bed position Low and Locked. Fall Precautions: Yellow Socks Yellow Gown Door Sign Patient Fall Education Addendum: 06/18/20 at 0731 by JOSH STEWART RN RN HAND-OFF: Report given to Flora.
--- NOTE | 2020-06-18 07:52 | NUR ---
NURSE NOTES: Patient awake, confused; on room air, no sing of distress and shortness of breath; no sing of chest pain; IV LAC flushes well; side rails up x2, breaks engaged, bed at lowest position, breaks engaged, bed alarm on; call light within reach; will keep monitoring.
[2020-06-18 08:00] VITALS: BP 116/76
[2020-06-18] MEDS: Benztropine 1mg tab ORAL SCH (09:03)
[2020-06-18] MEDS: Pantoprazole Inj IVP SCH ×2 (09:03→20:27)
[2020-06-18] MEDS: Ascorbic Acid 500mg tab ORAL SCH (09:04)
[2020-06-18] MEDS: Metoprolol Succinate XL 50mg tab ORAL SCH (09:04)
--- NOTE | 2020-06-18 09:50 | Cardiology Progress Note ---
Subjective DATE OF SERVICE: Jun 18, 2020 No distress; occasional cough with low grade temps. Refuses care at times. CT scan: bilateral patchy infiltrates Objective Last 24 Hour Vital Signs Date Time Temp Pulse Resp B/P (MAP) Pulse Ox O2 Delivery O2 Flow Rate FiO2 06/18/20 09:04 76 116/76 06/18/20 04:00 98.7 64 20 101/59 (73) 95 06/18/20 00:00 98.1 67 20 100/55 (70) 96 06/17/20 21:00 Room Air 06/17/20 20:00 99.1 71 20 123/71 (88) 94 06/17/20 15:47 97.9 72 18 129/70 (89) 98 06/17/20 12:00 98.1 62 18 113/64 (80) 95 ROS: no update to prior evaluation HEENT: normal ENT inspection RHYTHM: NSR LUNGS: lungs clear bilaterally CARDIAC: normal rate, regular rhythm, normal S1 and S2 ABDOMEN: normal bowel sounds, non tender, soft, no organomegaly EXTREMITIES: normal range of motion, No edema Assessment/Plan Assessment/Plan Rec GI Bleed Chronic DVT of LE's Schizoaff dis COPD Dementia Hold any anticoag or antiplt rx Antimicrobials per ID Check V duplex Serial Hb PPI prn bronchodil rx by inhalation Shaw Abraham MD Jun 18, 2020 09:50
[2020-06-18 12:00] VITALS: BP 119/79
--- NOTE | 2020-06-18 13:12 | Infectious Diseases Prog Note ---
Assessment/Plan Assessment/Plan A; 1. Possible aspiration pneumonia, rapid & PCR COVID tests: negative. 2. Schizophrenia. 3. GI bleeding. 4. Dementia PLAN: 1. Continue Zosyn. 2. Discontinue isolation. Subjective ROS Limited/Unobtainable: Yes Psychiatric: Reports: other - agitated Allergies: Coded Allergies: PORK/PORCINE CONTAINING PRODUCTS (Verified Allergy, Mild, 08/03/11) Objective Last 24 Hour Vital Signs Date Time Temp Pulse Resp B/P (MAP) Pulse Ox O2 Delivery O2 Flow Rate FiO2 06/18/20 09:04 76 116/76 06/18/20 08:00 97.7 76 17 116/76 (89) 96 06/18/20 04:00 98.7 64 20 101/59 (73) 95 06/18/20 00:00 98.1 67 20 100/55 (70) 96 06/17/20 21:00 Room Air 06/17/20 20:00 99.1 71 20 123/71 (88) 94 06/17/20 15:47 97.9 72 18 129/70 (89) 98 Height (Feet): 5 Height (Inches): 6.00 Weight (Pounds): 135 General Appearance: no acute distress HEENT: other - poor dentition Respiratory/Chest: no respiratory distress Cardiovascular: normal rate Abdomen: soft, non tender Extremities: no edema Neurologic/Psychiatric: alert, responsive, disoriented Microbiology Date/Time Source Procedure Growth Status 06/17/20 13:45 Nasopharynx Coronavirus COVID-19 PCR (GIOVANNY) - Final Complete Current Medications Medications (Trade) Dose Ordered Sig/Ji Route PRN Reason Start Time Stop Time Status Last Admin Dose Admin Acetaminophen (Tylenol) 650 mg Q4H PRN ORAL Mild Pain (Pain Scale 1-3) 06/14/20 18:15 07/14/20 18:14 Acetaminophen (Tylenol) 650 mg Q4H PRN ORAL Temp >100.5 06/14/20 18:30 07/14/20 18:29 Ascorbic Acid (Vitamin C) 500 mg DAILY ORAL 06/15/20 09:00 07/15/20 08:59 06/18/20 09:04 Benztropine Mesylate (Cogentin) 1 mg DAILY ORAL 06/15/20 09:00 07/15/20 08:59 06/18/20 09:03 Magnesium Hydroxide (Mom) 30 ml HSPRN PRN ORAL Constipation 06/14/20 18:15 07/14/20 18:14 Metoprolol Succinate (Toprol XL) 50 mg DAILY ORAL 06/15/20 09:00 09/13/20 08:59 06/18/20 09:04 Olanzapine (ZyPREXA) 5 mg DAILY ORAL 06/15/20 09:00 07/30/20 08:59 06/18/20 09:04 Pantoprazole (Protonix) 40 mg EVERY 12 HOURS IVP 06/14/20 21:00 07/14/20 20:59 06/18/20 09:03 Piperacillin Sod/ Tazobactam Sod 3.375 gm/Sodium Chloride 110 ml @ 27.5 mls/hr Q8H IVPB 06/14/20 20:00 06/21/20 19:59 06/18/20 03:43 Valproic Acid (Depakene) 500 mg Q12HR ORAL 06/14/20 21:00 07/29/20 20:59 06/18/20 09:03 Scott Jack MD Jun 18, 2020 13:12
--- NOTE | 2020-06-18 15:01 | NUR ---
NURSE NOTES:WOUND CARE NOTES:Pt presented on admission with non- Blanchable erythema without induration/fluctuance Sacrum. Non-Blanchable erythema both heels, including plantar aspects of both feet.Both heels are boggy. No other skin breakdown noted. Pt resistive to being repositioned and is easily agitated when staff attempts to off-load heels. Tx.Plan: Apply Moisture Barrier Paste to Sacrum. Cover with Optifoam drsg. Change every 3 days and prn. Apply Cavilon Skin Barrier to Plantar aspects of both feet including heels. Cover each heel with Optifoam drsg. Change every 7 days and prn. Reposition at least every 2hours or as tolerated. Off-load heels with Pillow.
--- NOTE | 2020-06-18 15:46 | General Progress Note ---
Subjective ROS Limited/Unobtainable: No Constitutional: Reports: malaise, weakness HEENT: Reports: no symptoms Cardiovascular: Reports: no symptoms Respiratory: Reports: no symptoms Gastrointestinal/Abdominal: Reports: no symptoms Genitourinary: Reports: no symptoms Neurologic/Psychiatric: Reports: no symptoms Endocrine: Reports: no symptoms Hematologic/Lymphatic: Reports: no symptoms Allergies: Coded Allergies: PORK/PORCINE CONTAINING PRODUCTS (Verified Allergy, Mild, 08/03/11) All Systems: reviewed and negative except above Subjective no events. eating well. no bleeding. refusing repeat labs. on iv abx. uncooperative with care. intermittent agitation. mostly calm when left alone Objective Last 24 Hour Vital Signs Date Time Temp Pulse Resp B/P (MAP) Pulse Ox O2 Delivery O2 Flow Rate FiO2 06/18/20 12:00 97.3 79 17 119/79 (92) 96 06/18/20 09:04 76 116/76 06/18/20 09:00 Room Air 06/18/20 08:00 97.7 76 17 116/76 (89) 96 06/18/20 04:00 98.7 64 20 101/59 (73) 95 06/18/20 00:00 98.1 67 20 100/55 (70) 96 06/17/20 21:00 Room Air 06/17/20 20:00 99.1 71 20 123/71 (88) 94 06/17/20 15:47 97.9 72 18 129/70 (89) 98 Intake and Output 06/17/20 06/18/20 19:00 07:00 Intake Total 600 ml 240 ml Balance 600 ml 240 ml Intake Oral 600 ml 240 ml # Voids 3 # Bowel Movements 2 2 Height (Feet): 5 Height (Inches): 6.00 Weight (Pounds): 135 General Appearance: WD/WN, no apparent distress, alert Neck: non-tender, normal alignment Cardiovascular: normal rate Respiratory/Chest: chest wall non-tender, lungs clear, normal breath sounds Abdomen: normal bowel sounds, non tender, soft, no organomegaly Edema: no edema noted Arm (L), no edema noted Arm (R), no edema noted Leg (L), no edema noted Leg (R) Neurologic: alert Assessment/Plan Problem List: (1) Fever ICD Codes: R50.9 - Fever, unspecified SNOMED: 792747431 (2) Coffee ground emesis ICD Codes: K92.0 - Hematemesis SNOMED: 39300670 (3) Schizophrenia (4) Pneumonia ICD Codes: J18.9 - Pneumonia, unspecified organism SNOMED: 909682554 (5) Sepsis ICD Codes: A41.9 - Sepsis, unspecified organism SNOMED: 58690664 Status: stable Assessment/Plan: iv abx repeat cxr covid pcr negative resp care monitor for bleeding compliance stressed. PPI rx anxiolytics psych rx dc planning tomorrow Alexis Crandall MD Jun 18, 2020 15:46
[2020-06-18 16:00] VITALS: BP 121/82
--- NOTE | 2020-06-18 18:37 | NUR ---
NURSE HAND-OFF: Important Events on Shift:Isolation for COVID PUI discontinured; pateint stable Patient Status: Diet: Pending Orders: Pending Results/Labs: Pending MD notification: Latest Vital Signs: Temperature 97.5 , Pulse 80 , B/P 121 /82 , Respiratory Rate 18 , O2 SAT 97 , Room Air, O2 Flow Rate . Vital Sign Comment: Latest [place] Fall Score: 35 Fall Risk: Medium Risk Safety Measures: Call light Within Reach, Bed Alarm Zone 1, Side Rails Side Rails x2, Bed position Low and Locked. Fall Precautions: Yellow Socks Yellow Gown Door Sign Patient Fall Education Report given to .
--- NOTE | 2020-06-18 19:10 | NUR ---
HAND-OFF: Report given to LUIS Wei.
[2020-06-18 20:00] VITALS: BP 117/76
--- NOTE | 2020-06-18 21:04 | Surgery Progress Note ---
Surgery Progress Note Subjective Additional Comments doing well states feels okay no n/v/f/c confused Objective Last 24 Hour Vital Signs Date Time Temp Pulse Resp B/P (MAP) Pulse Ox O2 Delivery O2 Flow Rate FiO2 06/18/20 16:00 97.5 80 18 121/82 (95) 97 06/18/20 12:00 97.3 79 17 119/79 (92) 96 06/18/20 09:04 76 116/76 06/18/20 09:00 Room Air 06/18/20 08:00 97.7 76 17 116/76 (89) 96 06/18/20 04:00 98.7 64 20 101/59 (73) 95 06/18/20 00:00 98.1 67 20 100/55 (70) 96 I&O Intake and Output 06/17/20 06/18/20 19:00 07:00 Intake Total 600 ml 240 ml Balance 600 ml 240 ml Intake Oral 600 ml 240 ml # Voids 3 # Bowel Movements 2 2 Dressing: dry Wound: clean Cardiovascular: RSR Respiratory: clear Abdomen: soft, non-tender, present bowel sounds Extremities: no edema, no tenderness, no cyanosis Plan Problems: (1) Fever (2) Coffee ground emesis Assessment & Plan: This is a pleasantly 85-year-old male with multimedical comorbidities who presents with coffee-ground emesis admitted for evaluation of GI bleed. patient is febrile 102, abnormal labs, hemoglobin stable. No active bleeding at this time noted. Abdominal exam is benign at this time. No acute bleeding noted Trend H&H GI eval possible endoscopy Okay for diet from surgical standpoint We will follow with examination Darinel thank you let me participate patient's care (3) Esophagitis (4) Hiatal hernia (5) Cellulitis (6) 49124 (7) Failure to thrive (8) Gastritis (9) Gastroenteritis (10) Schizophrenia (11) 92450 (12) Sepsis (13) Pneumonia (14) Lactic acid acidosis (15) PNA (pneumonia) Julius De La Torre Jun 18, 2020 21:04
--- NOTE | 2020-06-18 21:22 | NUR ---
NURSE NOTES: Received report from LUIS Hines. AAO x 1-2, confused, on RA. IV site intact and patent. Denies pain or discomfort. Bed locked,lowest position, alarm on, side rails up, call light within reach. will continue to monitor.
[2020-06-19] VITALS: BP 116/68
--- NOTE | 2020-06-19 00:12 | NUR ---
NURSE NOTES: O2 sat 78% and SOB noted. Called RT and non rebreather mask applied. O2 sat 91% now. Addendum: 06/19/20 at 0557 by JOSH STEWART RN RN Error. Wrong pt.
--- NOTE | 2020-06-19 02:23 | Cardiology Progress Note ---
Subjective DATE OF SERVICE: Jun 19, 2020 No distress; occasional cough. No fever spikes. Refuses care at times. CT scan: bilateral patchy infiltrates Objective Last 24 Hour Vital Signs Date Time Temp Pulse Resp B/P (MAP) Pulse Ox O2 Delivery O2 Flow Rate FiO2 06/19/20 00:00 97.2 69 18 116/68 (84) 96 06/18/20 21:00 Room Air 06/18/20 20:00 97.5 67 18 117/76 (90) 96 06/18/20 16:00 97.5 80 18 121/82 (95) 97 06/18/20 12:00 97.3 79 17 119/79 (92) 96 06/18/20 09:04 76 116/76 06/18/20 09:00 Room Air 06/18/20 08:00 97.7 76 17 116/76 (89) 96 06/18/20 04:00 98.7 64 20 101/59 (73) 95 ROS: no update to prior evaluation HEENT: normal ENT inspection RHYTHM: NSR LUNGS: lungs clear bilaterally CARDIAC: normal rate, regular rhythm, normal S1 and S2 ABDOMEN: normal bowel sounds, non tender, soft, no organomegaly EXTREMITIES: normal range of motion, No edema Microbiology Date/Time Source Procedure Growth Status 06/17/20 13:45 Nasopharynx Coronavirus COVID-19 PCR (GIOVANNY) - Final Complete Assessment/Plan Assessment/Plan Rec GI Bleed Chronic DVT of LE's Schizoaff dis COPD Dementia Hold any anticoag or antiplt rx Antimicrobials per ID Serial Hb PPI prn bronchodil rx by inhalation Consider IVC filter for recurring acute DVT Shaw Abraham MD Jun 19, 2020 02:23
[2020-06-19 04:00] VITALS: BP 100/57
[2020-06-19] MEDS: Piperacillin/Tazobactam 3.375 GM in NS 110 ML IVPB SCH ×2 (04:53→13:27)
--- NOTE | 2020-06-19 06:09 | NUR ---
NURSE HAND-OFF: Important Events on Shift:no active GI bleeding Patient Status: stable Diet: clear liq Pending Orders: Pending Results/Labs: Pending MD notification:am labs Latest Vital Signs: Temperature 97.0 , Pulse 55 , B/P 100 /57 , Respiratory Rate 18 , O2 SAT 94 , Room Air, O2 Flow Rate . Vital Sign Comment: [] Latest [place] Fall Score: 35 Fall Risk: Medium Risk Safety Measures: Call light Within Reach, Bed Alarm Zone 1, Side Rails Side Rails x2, Bed position Low and Locked. Fall Precautions: Yellow Socks Yellow Gown Door Sign Patient Fall Education Addendum: 06/19/20 at 0731 by JOSH STEWART RN RN HAND-OFF: SBAR left at nursing station.
[2020-06-19 08:00] VITALS: BP 132/75
--- NOTE | 2020-06-19 08:00 | NUR ---
NURSE NOTES: RN received report from LUIS Topete. RN received the patient in bed. Patient is AAOX1, shows no s/s of respiratory distress on room air, no s/s of pain noted. IV patent, dry, asymptomatic, flushed. Bed in lowest position and locked. Call light within reach. Patient refused all PO medications. Will continue to monitor.
--- NOTE | 2020-06-19 08:33 | General Progress Note ---
Subjective ROS Limited/Unobtainable: No Constitutional: Reports: malaise, weakness HEENT: Reports: no symptoms Cardiovascular: Reports: no symptoms Respiratory: Reports: no symptoms Gastrointestinal/Abdominal: Reports: poor appetite Genitourinary: Reports: no symptoms Neurologic/Psychiatric: Reports: anxiety, emotional problems Endocrine: Reports: no symptoms Hematologic/Lymphatic: Reports: no symptoms Allergies: Coded Allergies: PORK/PORCINE CONTAINING PRODUCTS (Verified Allergy, Mild, 08/03/11) All Systems: reviewed and negative except above Subjective no events. eating well. no bleeding. refusing repeat labs. on iv abx. uncooperative with care. intermittent agitation. mostly calm when left alone Objective Last 24 Hour Vital Signs Date Time Temp Pulse Resp B/P (MAP) Pulse Ox O2 Delivery O2 Flow Rate FiO2 06/19/20 04:00 97.0 55 18 100/57 (71) 94 06/19/20 00:00 97.2 69 18 116/68 (84) 96 06/18/20 21:00 Room Air 06/18/20 20:00 97.5 67 18 117/76 (90) 96 06/18/20 16:00 97.5 80 18 121/82 (95) 97 06/18/20 12:00 97.3 79 17 119/79 (92) 96 06/18/20 09:04 76 116/76 06/18/20 09:00 Room Air Intake and Output 06/18/20 06/19/20 19:00 07:00 Intake Total 710.0 ml 360 ml Balance 710.0 ml 360 ml IV Total 110.0 ml Other 600 ml 360 ml # Voids 2 # Bowel Movements 1 1 Height (Feet): 5 Height (Inches): 6.00 Weight (Pounds): 135 Objective General Appearance: WD/WN, no apparent distress, alert Neck: non-tender, normal alignment Cardiovascular: normal rate Respiratory/Chest: chest wall non-tender, lungs clear, normal breath sounds Abdomen: normal bowel sounds, non tender, soft, no organomegaly Edema: no edema noted Arm (L), no edema noted Arm (R), no edema noted Leg (L), no edema noted Leg (R) Neurologic: alert Assessment/Plan Problem List: (1) Fever ICD Codes: R50.9 - Fever, unspecified SNOMED: 706268660 (2) Coffee ground emesis ICD Codes: K92.0 - Hematemesis SNOMED: 47719052 (3) Schizophrenia (4) Pneumonia ICD Codes: J18.9 - Pneumonia, unspecified organism SNOMED: 525510983 (5) Sepsis ICD Codes: A41.9 - Sepsis, unspecified organism SNOMED: 49048228 Status: stable Assessment/Plan: iv abx await repeat cxr covid pcr negative resp care monitor for bleeding compliance stressed. PPI rx anxiolytics psych rx dc planning today if cxr ok Alexis Crandall MD Jun 19, 2020 08:33
[2020-06-19] MEDS: Ascorbic Acid 500mg tab ORAL SCH (09:00)
[2020-06-19] MEDS: Benztropine 1mg tab ORAL SCH (09:00)
[2020-06-19] MEDS: Metoprolol Succinate XL 50mg tab ORAL SCH (09:00)
--- NOTE | 2020-06-19 09:00 | NUR ---
NURSE NOTES: Patient refused all PO meds despite risks and benefits explained x3. Will continue to monitor.
[2020-06-19] MEDS: Pantoprazole Inj IVP SCH (09:50)
--- NOTE | 2020-06-19 10:13 | NUR ---
*-*DISCHARGE PLANNING*-* PATIENT HAS BEEN REFERRED BACK TO: [facility] P: [phone] S/W KIRILL, WILL CALL BACK AFTER REVIEW.
--- NOTE | 2020-06-19 10:30 | Infectious Diseases Prog Note ---
Assessment/Plan Assessment/Plan antibiotics : zosyn A 1. aspiration pneumonia covid 19 negative x 2 2. GI bleeding 3. schizophrenia P 1. continue zosyn 1 more day 2. will follow up cultures Subjective ROS Limited/Unobtainable: Yes Allergies: Coded Allergies: PORK/PORCINE CONTAINING PRODUCTS (Verified Allergy, Mild, 08/03/11) Objective Last 24 Hour Vital Signs Date Time Temp Pulse Resp B/P (MAP) Pulse Ox O2 Delivery O2 Flow Rate FiO2 06/19/20 09:00 67 132/75 06/19/20 08:00 98.2 67 18 132/75 (94) 97 06/19/20 04:00 97.0 55 18 100/57 (71) 94 06/19/20 00:00 97.2 69 18 116/68 (84) 96 06/18/20 21:00 Room Air 06/18/20 20:00 97.5 67 18 117/76 (90) 96 06/18/20 16:00 97.5 80 18 121/82 (95) 97 06/18/20 12:00 97.3 79 17 119/79 (92) 96 Height (Feet): 5 Height (Inches): 6.00 Weight (Pounds): 135 Respiratory/Chest: lungs clear Cardiovascular: normal rate, regular rhythm, no gallop/murmur Abdomen: soft, non tender Extremities: no edema Microbiology Date/Time Source Procedure Growth Status 06/17/20 13:45 Nasopharynx Coronavirus COVID-19 PCR (GIOVANNY) - Final Complete Current Medications Medications (Trade) Dose Ordered Sig/Ji Route PRN Reason Start Time Stop Time Status Last Admin Dose Admin Acetaminophen (Tylenol) 650 mg Q4H PRN ORAL Mild Pain (Pain Scale 1-3) 06/14/20 18:15 07/14/20 18:14 Acetaminophen (Tylenol) 650 mg Q4H PRN ORAL Temp >100.5 06/14/20 18:30 07/14/20 18:29 Ascorbic Acid (Vitamin C) 500 mg DAILY ORAL 06/15/20 09:00 07/15/20 08:59 06/18/20 09:04 Benztropine Mesylate (Cogentin) 1 mg DAILY ORAL 06/15/20 09:00 07/15/20 08:59 06/18/20 09:03 Magnesium Hydroxide (Mom) 30 ml HSPRN PRN ORAL Constipation 06/14/20 18:15 07/14/20 18:14 Metoprolol Succinate (Toprol XL) 50 mg DAILY ORAL 06/15/20 09:00 09/13/20 08:59 06/18/20 09:04 Olanzapine (ZyPREXA) 5 mg DAILY ORAL 06/15/20 09:00 07/30/20 08:59 06/18/20 09:04 Pantoprazole (Protonix) 40 mg EVERY 12 HOURS IVP 06/14/20 21:00 07/14/20 20:59 06/19/20 09:50 Piperacillin Sod/ Tazobactam Sod 3.375 gm/Sodium Chloride 110 ml @ 27.5 mls/hr Q8H IVPB 06/14/20 20:00 06/21/20 19:59 06/19/20 04:53 Valproic Acid (Depakene) 500 mg Q12HR ORAL 06/14/20 21:00 07/29/20 20:59 06/18/20 20:27 Micheal Drake MD Jun 19, 2020 10:30
--- NOTE | 2020-06-19 10:38 | NUR ---
RD ASSESSMENT & RECOMMENDATIONS SEE CARE ACTIVITY FOR COMPLETE ASSESSMENT DAILY ESTIMATED NEEDS: Needs based on Sepsis, 61.4kg 25-35 kcals/kg 7440-2907 total kcals 1.25-2 g protein/kg 77-123 g total protein 25-30 mL/kg 2650-0152 total fluid mLs NUTRITION DIAGNOSIS: Increased kcal and pro needs r/t skin integrity as evidenced by pt w/ non- Blanchable erythema without induration/fluctuance sacrum, non-Blanchable erythema both heels, including plantar aspects of both feet. CURRENT DIET: CLD PO DIET RECOMMENDATIONS: Advance as tolerated to REGULAR DIET / texture as tolerated ADDITIONAL RECOMMENDATIONS: 1) On CLD, advance diet as medically able 2) Add Ensure Enlive w/ meals, TID (Ensure Clear TID w/ CLD) 3) Rec EXTRACTION SUPERVISOR eval for appropriate texture 4) Updated labs as able 5) Skin integrity: JOSÉ BID . .
--- NOTE | 2020-06-19 11:04 | NUR ---
RADIOLOGY DEPT., CHEST X-RAY DONE.-P.DYE
[2020-06-19 12:00] VITALS: BP 118/77
--- NOTE | 2020-06-19 12:27 | NUR ---
*-*DISCHARGE PLANING*-* PATIENT HAS BEEN ACCEPTED WITH: [facility] P: [phone] ROOM# 316.A
--- NOTE | 2020-06-19 13:16 | Diagnostic Imaging Report ---
Indication: Cough Technique: One view of the chest Comparison: 06/14/2020 Findings: The heart is borderline enlarged. Mild interstitial prominence appears similar to the prior exam. No focal airspace consolidation. The pleural spaces are clear. Impression: Mild interstitial prominence, similar to previous study of 06/14/2020, may be chronic or may reflect mild interstitial edema or combination of both. Infiltrates also possible
--- NOTE | 2020-06-19 15:19 | NUR ---
*-*DISCHARGE PLANNED*-* PATIENT HAS BEEN ACCEPTED AND WILL BE DISCHARGE BACK TO: [facility] P: [phone] FOR NURSE TO NURSE REPORT ROOM# 316.A [facility] SET FOR 5:15PM S/W ALBERTO [id number]. PLACED A CALL TO, PATIENTS NEXT TO KIN CONTACT, LOBO TOPETE, WHO IS IN AGREEMENT WITH DISCHARGE PLAN.
[2020-06-19 16:00] VITALS: BP 144/74
--- NOTE | 2020-06-19 17:12 | Surgery Progress Note ---
Surgery Progress Note Subjective Additional Comments aggressive during exam does not like to be changed but will shake hands no n/v labs refused micro noted Objective Last 24 Hour Vital Signs Date Time Temp Pulse Resp B/P (MAP) Pulse Ox O2 Delivery O2 Flow Rate FiO2 06/19/20 16:00 98.1 78 21 144/74 (97) 94 06/19/20 12:00 99.0 65 18 118/77 (91) 97 06/19/20 09:00 Room Air 06/19/20 09:00 67 132/75 06/19/20 08:00 98.2 67 18 132/75 (94) 97 06/19/20 04:00 97.0 55 18 100/57 (71) 94 06/19/20 00:00 97.2 69 18 116/68 (84) 96 06/18/20 21:00 Room Air 06/18/20 20:00 97.5 67 18 117/76 (90) 96 I&O Intake and Output 06/18/20 06/19/20 19:00 07:00 Intake Total 710.0 ml 360 ml Balance 710.0 ml 360 ml IV Total 110.0 ml Other 600 ml 360 ml # Voids 2 # Bowel Movements 1 1 Cardiovascular: RSR Respiratory: decreased breath sounds Abdomen: non-tender, present bowel sounds, non-distended Extremities: no tenderness, no cyanosis Plan Problems: (1) Fever (2) Coffee ground emesis Assessment & Plan: This is a pleasantly 85-year-old male with multimedical com orbidities who presents with coffee-ground emesis admitted for evaluation of GI bleed. patient is febrile 102, abnormal labs, hemoglobin stable. No active bleeding at this time noted. Abdominal exam is benign at this time. No acute bleeding noted Trend H&H GI eval possible endoscopy Okay for diet from surgical standpoint We will follow with examination Darinel thank you let me participate patient's care (3) Esophagitis (4) Hiatal hernia (5) Cellulitis Assessment & Plan: Pt presented on admission with non- Blanchable erythema without induration/fluctuance Sacrum. Non-Blanchable erythema both heels, including plantar aspects of both feet.Both heels are boggy. No other skin breakdown noted. Pt resistive to being repositioned and is easily agitated when staff attempts to off-load heels. Tx.Plan: Apply Moisture Barrier Paste to Sacrum. Cover with Optifoam drsg. Change every 3 days and prn. Apply Cavilon Skin Barrier to Plantar aspects of both feet including heels. Cover each heel with Optifoam drsg. Change every 7 days and prn. Reposition at least every 2hours or as tolerated. Off-load heels with Pillow. DAILY ESTIMATED NEEDS: Needs based on Sepsis, 61.4kg 25-35 kcals/kg 5278-0331 total kcals 1.25-2 g protein/kg 77-123 g total protein 25-30 mL/kg 4804-8753 total fluid mLs NUTRITION DIAGNOSIS: Increased kcal and pro needs r/t skin integrity as evidenced by pt w/ non- Blanchable erythema without induration/fluctuance sacrum, non-Blanchable erythema both heels, including plantar aspects of both feet. CURRENT DIET: CLD PO DIET RECOMMENDATIONS: Advance as tolerated to REGULAR DIET / texture as tolerated ADDITIONAL RECOMMENDATIONS: 1) On CLD, advance diet as medically able 2) Add Ensure Enlive w/ meals, TID (Ensure Clear TID w/ CLD) 3) Rec PEDIATRIC PHYSIATRIST eval for appropriate texture 4) Updated labs as able 5) Skin integrity: JOSÉ BID . . [phone] (7) Failure to thrive (8) Gastritis (9) Gastroenteritis (10) Schizophrenia [phone] 89722 (12) Sepsis (13) Pneumonia (14) Lactic acid acidosis (15) PNA (pneumonia) Julius De La Torre Jun 19, 2020 17:12
[2020-06-19] MEDS ORDERED: NS 275ml ONE (18:39)
[2020-06-19] MEDS ORDERED: Tubing IV Secondary IV ONE (18:39)
--- NOTE | 2020-06-19 18:45 | NUR ---
NURSE NOTES: Patient is transferred to [facility] with two supervisor sheet manufacturing Dre and Bear on a gurney. Vitals are stable: 132/92, 67 bpm, 97% O2, 98.3 oral temperature, 18 RR. Patient showed no s/s or respiratory distress on room air, no s/s of pain noted. IV is removed, asymptomatic. Belongings are sent with the patient. RN gave report to LUIS Baeza at [facility].
--- NOTE | 2020-06-26 07:59 | Discharge Summary ---
DATE OF ADMISSION: 06/14/2020 DATE OF DISCHARGE: 06/19/2020 ADMISSION DIAGNOSES: 1. GI bleed. 2. Schizophrenia. 3. Possible aspiration pneumonia. 4. Chronic DVT. DISCHARGE DIAGNOSES: 1. GI bleed. 2. Schizophrenia. 3. Possible aspiration pneumonia. 4. Chronic DVT. HOSPITAL COURSE: The patient was admitted with complaints of coffee-ground emesis. His hemoglobin was stable upon admission. He refused any repeat laboratories. His x-ray did show a possible pneumonia. He was treated with intravenous antibiotics. Clinically improved. The patient refused any invasive procedures and had no further signs or symptoms of bleeding. He was discharged back to the [facility] facility. He will complete all of his antibiotics while in-house. DISCHARGE MEDICATIONS: Please see discharge medication list for discharge medications. DIET: Regular. ACTIVITY: Ad-anita. FOLLOWUP: The patient will follow-up in one to two days at [facility] facility. Alexis Crandall M.D. DR: JERILYN JOB#: [id number] CC:
== END 2020-06-19 18:40 | DRG 177 ==
LOC: EDUNIT# 11:10 → EDBD 11:10 → EMR 12:22 → 2E 12:39 → EDBEDREQ 17:11 → 4E 06-17 19:38
DX: J69.0 Pneumonitis due to inhalation of food and vomit (principal); K29.71 Gastritis, unspecified, with bleeding; I82.509 Chronic embolism and thrombosis of unspecified deep veins of unspecified lower extremity; R62.7 Adult failure to thrive; J44.9 Chronic obstructive pulmonary disease, unspecified; K52.9 Noninfective gastroenteritis and colitis, unspecified; G20 Parkinson's disease; F25.9 Schizoaffective disorder, unspecified; F02.80 Dementia in other diseases classified elsewhere, unspecified severity, without behavioral disturbance, psychotic disturbance, mood disturbance, and anxiety; Z20.822 Contact with and (suspected) exposure to COVID-19; K20.90 Esophagitis, unspecified without bleeding; K44.9 Diaphragmatic hernia without obstruction or gangrene; Z87.891 Personal history of nicotine dependence; F03.90 Unspecified dementia, unspecified severity, without behavioral disturbance, psychotic disturbance, mood disturbance, and anxiety
CPT/HCPCS: 36415; 71045; 74176; 80053; 81003; 83605; 83690; 84484; 85025; 85610; 85730; 86850; 86900; 86901; 87040; 87081; 93005; 96361; 96365; 96375; 99285; J7030; U0002